=== PATIENT | female | born 1965 | race Caucasian/White ===

== ENCOUNTER 2016-10-31 10:26 | Emergency (ER) ==
[2016-10-31 10:26] VITALS: BMI 25.7
[2016-10-31 10:31] VITALS: BP 125/85; TEMP 98.1
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
--- NOTE | 2016-10-31 11:54 | DI ---
EXAM: Right tibia and fibula AP and lateral views. HISTORY: Leg pain FINDINGS: Bone and joint structures appear normal. There is no fracture or bony destruction. Gini nts are within normal limits. Soft tissues unremarkable. IMPRESSION: Within normal limits.
--- NOTE | 2016-10-31 12:03 | CT ---
EXAM: CT LUMBAR SPINE HISTORY: Back pain TECHNIQUE: CT lumbar spine without contrast. 3-mm axial sections. Coronal and sagittal reformatio ns. COMPARISON: 06/14/2016 FINDINGS: No fracture or significant loss of vertebral body height. No spondylolisthesis is identified. Ther e is mild curvature of the spine convex to the left centered at the mid lumbar level suggesting scol iosis. Early facet arthropathy of the [id number] lumbar spine and lumbosacral junction. Degenera tive disc disease is noted. Mild broad-based disc bulging, ligamentum flavum hypertrophy and facet arthropathy at L4/L5 leads to mild central canal stenosis. There is posterior disc bulging and L5/S 1 with no significant central canal stenosis or neural foraminal narrowing. Sacroiliac joints are w ithin normal limits. No paraspinal fluid collection. Incidental findings include atrophy of the right kidney and malrotation of the left kidney. There i s atherosclerotic disease and sigmoid diverticulosis. IMPRESSION: 1. Mild degenerative disc disease of the lower lumbar spine and lumbosacral junction similar to carmel t previously seen. 2. Mild scoliosis. 3. Incidental findings as described in the last paragraph of report.
--- NOTE | 2016-10-31 12:18 | CT ---
EXAM: CT of the cervical spine without contrast History: Neck pain. Technique: Multiplanar CT images through the cervical spine were obtained without the administratio n of IV contrast Findings: The visualized lung apices are free of consolidation. The visualized airway remains gates nt. No acute fracture or subluxation. No prevertebral soft tissue swelling. Predental space is not wid ened. Mild to moderate disc space narrowing at C4-5, C5-6 and C6-7 with endplate sclerosis and smal l osteophytes. C2-3: No significant disc bulge, central canal stenosis or bony neural foraminal narrowing. C3-4: No significant disc bulge, central canal stenosis or bony neural foraminal narrowing. C4-5: Small posterior disc osteophyte complex with mild central canal stenosis. Mild bilateral bon y neural foraminal narrowing secondary to uncovertebral and facet hypertrophy. C5-6: Small posterior disc osteophyte complex with mild bony central canal stenosis. Mild to moder ate bilateral bony neural foraminal narrowing secondary to uncovertebral and facet hypertrophy. C6-7: Small posterior disc osteophyte complex with no significant bony central canal stenosis. Mil d right and mild to moderate left bony neural foraminal narrowing secondary to uncovertebral and fac et hypertrophy. Impression: No acute osseous abnormality of the cervical spine. Level by level analysis as detaile d above. If symptoms persist, consider further evaluation with cervical spine MRI.
== END 2016-10-31 12:34 | disposition home or self-care (01) ==
LOC: ED 10:26
DX: M54.5 Low back pain (principal); M79.604 Pain in right leg; V19.9XXA Pedal cyclist (driver) (passenger) injured in unspecified traffic accident, initial encounter
CPT/HCPCS: 99283

== ENCOUNTER 2017-01-04 16:45 | Outpatient (CLI) ==
[2017-01-04 17:25] LABS: FLU INTERNAL QC INTERNAL QC VALID; RAPID FLU A NEGATIVE (NEGATIVE); RAPID FLU B NEGATIVE (NEGATIVE)
== END 2017-01-04 16:46 | disposition home or self-care (01) ==
LOC: LAB 16:45
PROVIDERS: ATTEND Nurse Practitioner Family
DX: R05 Cough (principal); J02.9 Acute pharyngitis, unspecified
CPT/HCPCS: 87804; 87880

== ENCOUNTER 2017-01-06 16:54 | Emergency (ER) ==
[2017-01-06 17:01] VITALS: BP 134/92; TEMP 99.1; BMI 26.7
--- NOTE | 2017-01-06 17:12 | ED.PDOC ---
General ED Provider: Dr. RUBY LARA-ER Chief Complaint: Sore Throat Stated Complaint: mayito got strep throat--that antibiotic makes me sick Time Seen by Physician: 17:11 Mode of Arrival: Walk-In Information Source: Patient Exam Limitations: No limitations Primary Care Provider: [facility] Nursing and Triage Documentation Reviewed and Agree: Yes EENT Complaint Exam - Throat Complaint/Exam Onset/Duration: 2-3 days Symptoms Are: Still present Timimg: Intermittent Initial Severity: Mild Current Severity: Mild Aggravating: Reports: Eating Alleviating: Reports: Antipyretics Associated Signs and Symptoms: Reports: Fever, Nasal congestion. Denies: Dysphagia, Drooling, Foreign body sensation, Chills, Cough, Wheezing, Hoarseness , Sinus discomfort, Difficulty breathing, Lethargy, Irritability, Decreased activity, Vomiting, Diarrhea, Decreased hearing, Ear drainage Related History: Reports: Similar Episode Uvula Midline: Yes Andra-tonsillar Fluctuence: No Exanthem: Present: Pharynx Stridor Present: No Sinus Tenderness Present: No Tonsillar Hypertrophy Present: No Tonsillar Exudate Present: No Andra-tonsillar Swelling Present: No Adenopathy Present: No Splenomegaly Present: No Differential Diagnoses: Pharyngitis Review of Systems - Review Of Systems Constitutional: Reports: Fever Eyes: Reports: No symptoms Ears, Nose, Mouth, Throat: Reports: Nose discharge, Throat pain, Throat swelling Respiratory: Reports: No symptoms Cardiac: Reports: No symptoms GI: Reports: No symptoms : Reports: No symptoms Musculoskeletal: Reports: No symptoms Skin: Reports: No symptoms Neurological: Reports: No symptoms Endocrine: Reports: No symptoms Hematologic/Lymphatic: Reports: No symptoms All Other Systems: Reviewed and Negative Past Medical History - Past Medical History Previously Healthy: Yes Endocrine: Reports: None Cardiovascular: Reports: Hypertension Respiratory: Reports: None Hematological: Reports: None Gastrointestinal: Reports: GERD Genitourinary: Reports: None Neuro/Psych: Reports: Depression Musculoskeletal: Reports: Joint Pain Cancer: Reports: None Last Menstrual Period: no longer has them Other Pertinent Past Medical History: Osteoporosis - Surgical History General Surgical History: Reports: Tubal ligation, Orthopedic ( CARPAL TUNNEL) - Family History Family History: Reports: Unknown - Social History Smoking Status: Former smoker Hx Substance Use: No Alcohol Screening: None Physical Exam - Physical Exam Appearance: Well-appearing, No pain distress, Well-nourished Pain Distress: Mild Eyes: HECTOR, EOMI, Conjunctiva clear ENT: Ears normal, Nose normal, Erythema Neck: Supple Respiratory: Airway patent, Breath sounds clear, Breath sounds equal, Respirations nonlabored Cardiovascular: RRR, Pulses normal, No rub, No murmur GI/: Soft Musculoskeletal: Normal strength, ROM intact, No edema, No calf tenderness Skin: Warm, Dry, Normal color Neurological: Sensation intact, Motor intact, Reflexes intact, Cranial nerves intact, Alert, Oriented Psychiatric: Affect appropriate, Mood appropriate Critical Care Note - Critical Care Note Total Time (mins): 0 Course - Course Vital Signs: Temp Pulse Resp BP Pulse Ox 01/06/17 16:55 99.1 F 92 H 16 134/92 H 98 Departure - Departure Time of Disposition: 17:12 Disposition: HOME SELF-CARE Discharge Problem: Streptococcal sore throat Instructions: Strep Throat (ED) Condition: Good Pt referred to PMD for follow-up: Yes Additional Instructions: pce 500mg bid x 7 days#14---recheck in 48hrs if not better Allergies/Adverse Reactions: Allergies wheat Allergy (Mild, Unverified 01/06/17 17:01) n/v Penicillins Adverse Reaction (Unverified 01/06/17 17:01) Opheliaaut Adverse Reaction (Uncoded 01/06/17 17:01) Home Medications: Ambulatory Orders Acetaminophen [Tylenol] 500 mg PO Q6H PRN #30 tablet 06/23/16 Hydrocodone/Acetaminophen [[place] 5-325 Tablet] 1 each PO BID 09/27/16 Diazepam 5 mg PO QID PRN #30 10/03/16 Disposition Discussed With: Patient
== END 2017-01-06 17:17 | disposition home or self-care (01) ==
LOC: ED 16:54
DX: J02.0 Streptococcal pharyngitis (principal)
CPT/HCPCS: 99282

== ENCOUNTER 2017-01-12 10:39 | Outpatient (CLI) ==
[2017-01-12 10:55] LABS: BASOPHILS % (AUTO) 0.5 % (0.0-3.0); EOSINOPHILS # (AUTO) 0.2 K/ul (0.0-0.7); EOSINOPHILS % (AUTO) 1.9 % (0.0-7.0); HEMATOCRIT 35.2 % (37.0-47.0); HEMOGLOBIN 11.4 g/dl (12.0-16.0); IMMATURE GRANULOCYTE % (AUTO) 0.2 % (0.0-5.0); LYMPHOCYTES # (AUTO) 1.8 K/uL (0.60-3.4); LYMPHOCYTES % (AUTO) 20.4 (10.0-50.0); MEAN CORPUSCULAR HGB CONC 32.4 (31.8-35.4); MEAN CORPUSCULAR VOLUME 92.6 fl (81.0-99.0); MONOCYTES # (AUTO) 0.4 K/uL (0.4-2.0); MONOCYTES % (AUTO) 4.9 (0-10); NEUTROPHILS # (AUTO) 6.2 K/ul (2.0-6.9); NEUTROPHILS % (AUTO) 72.1; PLATELET COUNT 362 10^3/uL (140-440); WHITE BLOOD COUNT 8.56 K/ul (4.6-10.2)
[2017-01-12 11:34] LABS: ALBUMIN 3.6 g/dL (3.4-5.0); ALBUMIN/GLOBULIN RATIO 0.82; BILIRUBIN,TOTAL 0.28 mg/dL (0.00-1.20); BUN/CREATININE RATIO 14.87; CREATININE 1.21 mg/dL (0.60-1.30)
== END 2017-01-12 10:40 | disposition home or self-care (01) ==
LOC: LAB 10:39
PROVIDERS: ATTEND Nurse Practitioner Family
DX: I10 Essential (primary) hypertension (principal); N26.1 Atrophy of kidney (terminal)
CPT/HCPCS: 36415; 80053; 80061; 85025

== ENCOUNTER 2017-01-12 11:04 | Emergency (ER) ==
[2017-01-12 11:12] VITALS: BP 131/97; TEMP 96.9; BMI 26.8
--- NOTE | 2017-01-12 11:33 | ED.PDOC ---
General ED Provider: Dr. CT MACK Chief Complaint: Sore Throat Stated Complaint: sore thorat Time Seen by Physician: 11:00 Mode of Arrival: Walk-In Information Source: Patient Exam Limitations: No limitations Nursing and Triage Documentation Reviewed and Agree: Yes EENT Complaint Exam - Throat Complaint/Exam Symptoms Are: Still present Timimg: Intermittent Initial Severity: Mild Current Severity: Mild Aggravating: Reports: None Alleviating: Reports: None Associated Signs and Symptoms: Reports: Cough, Nasal congestion. Denies: Fever , Dysphagia, Drooling, Foreign body sensation, Chills, Wheezing, Hoarseness, Sinus discomfort, Difficulty breathing, Lethargy, Irritability, Decreased activity, Vomiting, Diarrhea, Decreased hearing, Ear drainage Uvula Midline: Yes Andra-tonsillar Fluctuence: No Scarlatinaform Rash Present: No Stridor Present: No Sinus Tenderness Present: No Tonsillar Hypertrophy Present: No Tonsillar Exudate Present: No Andra-tonsillar Swelling Present: No Adenopathy Present: No Splenomegaly Present: No Review of Systems - Review Of Systems Constitutional: Reports: No symptoms Eyes: Reports: No symptoms Ears, Nose, Mouth, Throat: Reports: Throat pain Respiratory: Reports: No symptoms Cardiac: Reports: No symptoms GI: Reports: No symptoms : Reports: No symptoms Musculoskeletal: Reports: No symptoms Skin: Reports: No symptoms Neurological: Reports: No symptoms Endocrine: Reports: No symptoms Hematologic/Lymphatic: Reports: No symptoms All Other Systems: Reviewed and Negative Past Medical History - Past Medical History Previously Healthy: Yes Endocrine: Reports: None Cardiovascular: Reports: Hypertension Respiratory: Reports: None Hematological: Reports: None Gastrointestinal: Reports: GERD Genitourinary: Reports: None Neuro/Psych: Reports: Depression Musculoskeletal: Reports: Joint Pain Cancer: Reports: None Last Menstrual Period: N/A Other Pertinent Past Medical History: Osteoporosis - Surgical History General Surgical History: Reports: Tubal ligation, Orthopedic ( CARPAL TUNNEL) - Family History Family History: Reports: Unknown - Social History Smoking Status: Former smoker Hx Substance Use: No Alcohol Screening: None - Immunizations Tetanus Shot up to Date: Yes Physical Exam - Physical Exam Appearance: Well-appearing, No pain distress, Well-nourished Eyes: HECTOR, EOMI, Conjunctiva clear ENT: Ears normal, Nose normal, Oropharynx normal Respiratory: Airway patent, Breath sounds clear, Breath sounds equal, Respirations nonlabored Cardiovascular: RRR, Pulses normal, No rub, No murmur GI/: Soft, Nontender, No masses, Bowel sounds normal, No Organomegaly Musculoskeletal: Normal strength, ROM intact, No edema, No calf tenderness Skin: Warm, Dry, Normal color Neurological: Sensation intact, Motor intact, Reflexes intact, Cranial nerves intact, Alert, Oriented Psychiatric: Affect appropriate, Mood appropriate Critical Care Note - Critical Care Note Total Time (mins): 0 Course - Course Orders, Labs, Meds: Orders Category Date Time Status STREP SCREEN Stat LAB 01/12/17 11:30 Uncollected Vital Signs: Temp Pulse Resp BP Pulse Ox 01/12/17 11:05 96.9 F L 82 18 131/97 H 98 Departure - Departure Time of Disposition: 11:32 Disposition: HOME SELF-CARE Discharge Problem: Sore throat symptom Instructions: Strep Throat (ED) Condition: Good Pt referred to PMD for follow-up: No Additional Instructions: Please call your Family Physician as soon as possible to schedule a follow-up appointment. Allergies/Adverse Reactions: Allergies wheat Allergy (Mild, Verified 01/12/17 11:12) n/v Penicillins Adverse Reaction (Verified 01/12/17 11:12) Sauerkraut Adverse Reaction (Uncoded 01/12/17 11:12) Home Medications: Ambulatory Orders Acetaminophen [Tylenol] 500 mg PO Q6H PRN #30 tablet 06/23/16 Hydrocodone/Acetaminophen [[employer] 5-325 Tablet] 1 each PO BID 09/27/16 Diazepam 5 mg PO QID PRN #30 10/03/16
== END 2017-01-12 11:54 | disposition home or self-care (01) ==
LOC: ED 11:04
DX: J02.9 Acute pharyngitis, unspecified (principal)
CPT/HCPCS: 87651; 87880; 99282

== ENCOUNTER 2017-01-16 17:39 | Emergency (ER) ==
[2017-01-16 17:43] VITALS: BP 125/85; TEMP 99.1; BMI 27.1
--- NOTE | 2017-01-16 18:00 | ED.PDOC ---
General ED Provider: Dr. CRUZ GIL JR Chief Complaint: Sore Throat Stated Complaint: has had a sore throat since sometime last week, has been to the clinic and this er last week. states she wasnt put on anything. states pain got worse today and has lost her voice [ End ]99.1 90 20 96% 125/85 10 note erythromycin 2 weeks ago Time Seen by Physician: 18:00 Mode of Arrival: Walk-In Information Source: Patient Exam Limitations: No limitations [facility] Nursing and Triage Documentation Reviewed and Agree: No Review of Systems - Review Of Systems Constitutional: Reports: Fever Ears, Nose, Mouth, Throat: Reports: Nose pain, Throat pain (hoarse) Respiratory: Reports: Cough (productive cough with brown sputum ) Cardiac: Reports: No symptoms GI: Reports: No symptoms : Reports: No symptoms Musculoskeletal: Reports: No symptoms Skin: Reports: No symptoms Neurological: Reports: No symptoms Endocrine: Reports: No symptoms Hematologic/Lymphatic: Reports: Swollen glands All Other Systems: Other Past Medical History - Past Medical History Previously Healthy: Yes Endocrine: Reports: None Cardiovascular: Reports: Hypertension Respiratory: Reports: None Hematological: Reports: None Gastrointestinal: Reports: GERD Genitourinary: Reports: None Neuro/Psych: Reports: Anxiety, Depression Musculoskeletal: Reports: Arthritis, Joint Pain Cancer: Reports: None Last Menstrual Period: none Other Pertinent Past Medical History: Osteoporosis - Surgical History General Surgical History: Reports: Tubal ligation, Orthopedic ( CARPAL TUNNEL) - Family History Family History: Reports: Unknown - Social History Smoking Status: Former smoker Hx Substance Use: No Alcohol Screening: None Physical Exam - Physical Exam Appearance: Ill-appearing Pain Distress: Moderate Eyes: HECTOR, EOMI, Conjunctiva clear ENT: Oropharynx normal Neck: Supple (tender minimal LAD) Respiratory: Airway patent, Breath sounds clear, Breath sounds equal, Respirations nonlabored Cardiovascular: RRR, Pulses normal, No rub, No murmur GI/: Soft, Nontender, No masses, Bowel sounds normal, No Organomegaly Musculoskeletal: Normal strength, ROM intact, No edema, No calf tenderness Skin: Warm, Dry, Normal color Neurological: Sensation intact, Motor intact, Reflexes intact, Cranial nerves intact, Alert, Oriented Psychiatric: Anxious Re-Evaluation - Re-Evaluation Time of Re-Evaluation: 18:23 (disc meds- nausea and stomach pain withmotrin) Status: Unchanged Critical Care Note - Critical Care Note Total Time (mins): 0 Course - Course Vital Signs: Temp Pulse Resp BP Pulse Ox 01/16/17 17:40 99.1 F 90 20 125/85 96 Departure - Departure Time of Disposition: 18:17 Disposition: HOME SELF-CARE Discharge Problem: Streptococcal sore throat Instructions: Strep Throat (ED) Condition: Fair Pt referred to PMD for follow-up: Yes Additional Instructions: for infection begin clindamycin for ten days chloraseptic for throat pain may add benadryl to home medication to improve pain control Prescriptions: Clindamycin HCl 300 mg PO QID #40 capsule Diphenhydramine HCl [Benadryl] 25 mg PO QID #30 capsule Allergies/Adverse Reactions: Allergies wheat Allergy (Mild, Verified 01/16/17 17:43) n/v Penicillins Adverse Reaction (Verified 01/16/17 17:43) Opheliaaut Adverse Reaction (Uncoded 01/12/17 11:12) Home Medications: Ambulatory Orders Acetaminophen [Tylenol] 500 mg PO Q6H PRN #30 tablet 06/23/16 Hydrocodone/Acetaminophen [[place] 5-325 Tablet] 1 each PO BID 09/27/16 Diazepam 5 mg PO QID PRN #30 10/03/16 Clindamycin HCl 300 mg PO QID #40 capsule 01/16/17 Diphenhydramine HCl [Benadryl] 25 mg PO QID #30 capsule 01/16/17
== END 2017-01-16 18:25 | disposition home or self-care (01) ==
LOC: ED 17:39
DX: J02.0 Streptococcal pharyngitis (principal)
CPT/HCPCS: 99282

== ENCOUNTER 2017-02-14 10:50 | Emergency (ER) ==
[2017-02-14 10:58] VITALS: BP 123/84; TEMP 96.8; BMI 26.4
--- NOTE | 2017-02-14 11:07 | ED.PDOC ---
General ED Provider: Dr. CRUZ GIL JR Chief Complaint: Sore Throat Stated Complaint: has sore throat past week--states her tonsils hurt--has been having chronic problem with sore throat--saw dr sebastian for eval--no fever-- also has problems with bladder incontinence[End]1 WEEK 96.8 71 20 98% 123/84 Time Seen by Physician: 11:40 Mode of Arrival: Walk-In Information Source: Patient Exam Limitations: No limitations [facility] Documentation Reviewed and Agree: No Review of Systems - Review Of Systems Constitutional: Reports: Malaise, Weakness Eyes: Reports: No symptoms Ears, Nose, Mouth, Throat: Reports: Throat pain Respiratory: Reports: No symptoms Cardiac: Reports: No symptoms GI: Reports: No symptoms : Reports: Frequency, Urgency Musculoskeletal: Reports: No symptoms Skin: Reports: No symptoms Neurological: Reports: No symptoms Endocrine: Reports: Increased urine Hematologic/Lymphatic: Reports: No symptoms All Other Systems: Other Past Medical History - Past Medical History Previously Healthy: Yes Endocrine: Reports: None Cardiovascular: Reports: Hypertension Respiratory: Reports: None Hematological: Reports: None Gastrointestinal: Reports: GERD Genitourinary: Reports: None Neuro/Psych: Reports: Anxiety, Depression Musculoskeletal: Reports: Arthritis, Joint Pain Cancer: Reports: None Last Menstrual Period: menopause Other Pertinent Past Medical History: Osteoporosis - Surgical History General Surgical History: Reports: Tubal ligation, Orthopedic ( CARPAL TUNNEL) - Family History Family History: Reports: Unknown - Social History Smoking Status: Former smoker Hx Substance Use: No Alcohol Screening: None Physical Exam - Physical Exam Appearance: Well-appearing, No pain distress, Well-nourished Pain Distress: Mild Eyes: HECTOR, EOMI, Conjunctiva clear ENT: Ears normal, Nose normal, Oropharynx normal Neck: Supple Respiratory: Airway patent, Breath sounds clear, Breath sounds equal, Respirations nonlabored Cardiovascular: RRR, Pulses normal, No rub, No murmur GI/: Soft, Nontender, No masses, Bowel sounds normal, No Organomegaly Musculoskeletal: Normal strength, ROM intact, No edema, No calf tenderness Skin: Warm, Dry, Normal color Neurological: Sensation intact, Motor intact, Reflexes intact, Cranial nerves intact, Alert, Oriented Psychiatric: Anxious, Depressed Critical Care Note - Critical Care Note Total Time (mins): 0 Course - Course Vital Signs: Temp Pulse Resp BP Pulse Ox 02/14/17 10:51 96.8 F L 71 20 123/84 98 Departure - Departure Time of Disposition: 11:58 Disposition: HOME SELF-CARE Discharge Problem: Sore throat symptom Instructions: Pharyngitis (ED) Condition: Good Pt referred to PMD for follow-up: Yes Additional Instructions: follow up with Dr Finn as scheduled follow up with Dr Sebastian as scheduled if you are not satisfied your physician may refer to other ear nose and throat doctors Naprosyn for pain as prescribed Doxycycline for inflammation 100mg twice a day for one week return if urinating less than three times a day or if fever over 101.0 Prescriptions: Naproxen [Naprosyn] 500 mg PO Q12HR PRN #30 tablet PRN Reason: PAIN Doxycycline Monohydrate [Monodox] 100 mg PO BID #20 capsule Allergies/Adverse Reactions: Allergies wheat Allergy (Mild, Verified 02/14/17 11:00) n/v Penicillins Adverse Reaction (Verified 02/14/17 11:00) Nancy Adverse Reaction (Uncoded 01/12/17 11:12) Home Medications: Ambulatory Orders Acetaminophen [Tylenol] 500 mg PO Q6H PRN #30 tablet 06/23/16 Hydrocodone/Acetaminophen [[place] 5-325 Tablet] 1 each PO BID 09/27/16 Diazepam 5 mg PO QID PRN #30 10/03/16 Diphenhydramine HCl [Benadryl] 25 mg PO QID #30 capsule 01/16/17 Doxycycline Monohydrate [Monodox] 100 mg PO BID #20 capsule 02/14/17 Naproxen [Naprosyn] 500 mg PO BID #20 02/14/17 Naproxen [Naprosyn] 500 mg PO Q12HR PRN #30 tablet 02/14/17
== END 2017-02-14 12:23 | disposition home or self-care (01) ==
LOC: ED 10:50
DX: J02.9 Acute pharyngitis, unspecified (principal)
CPT/HCPCS: 99282

== ENCOUNTER 2017-02-17 18:05 | Emergency (ER) ==
[2017-02-17 18:11] VITALS: BP 119/88; TEMP 98.1; BMI 26.1
--- NOTE | 2017-02-17 18:14 | ED.PDOC ---
General ED Provider: Dr. JULIO PETIT Chief Complaint: Sore Throat Stated Complaint: patient is a 51 year old female who was seen 3 days ago given antibiotics for sore thorat who returns to the ER with complains of continued sore throat and epigastric abdominal pain. Time Seen by Physician: 18:14 Mode of Arrival: Walk-In Information Source: Patient Exam Limitations: No limitations Primary Care Provider[facility] and Triage Documentation Reviewed and Agree: Yes Review of Systems - Review Of Systems Constitutional: Reports: No symptoms Eyes: Reports: No symptoms Ears, Nose, Mouth, Throat: Reports: Throat pain Respiratory: Reports: No symptoms Cardiac: Reports: No symptoms GI: Reports: Abdominal pain : Reports: No symptoms Musculoskeletal: Reports: No symptoms Skin: Reports: No symptoms Neurological: Reports: No symptoms Endocrine: Reports: No symptoms Hematologic/Lymphatic: Reports: No symptoms All Other Systems: Reviewed and Negative Past Medical History - Past Medical History Previously Healthy: Yes Endocrine: Reports: None Cardiovascular: Reports: Hypertension Respiratory: Reports: None Hematological: Reports: None Gastrointestinal: Reports: GERD Genitourinary: Reports: None Neuro/Psych: Reports: Anxiety, Depression Musculoskeletal: Reports: Arthritis, Joint Pain Cancer: Reports: None Last Menstrual Period: n/a Other Pertinent Past Medical History: Osteoporosis - Surgical History General Surgical History: Reports: Tubal ligation, Orthopedic ( CARPAL TUNNEL) - Family History Family History: Reports: Unknown - Social History Smoking Status: Former smoker Hx Substance Use: No Alcohol Screening: None Physical Exam - Physical Exam Appearance: Ill-appearing Ill-appearing: Moderate Pain Distress: Mild Eyes: HECTOR, EOMI, Conjunctiva clear ENT: Ears normal, Nose normal, Oropharynx normal Neck: Supple Respiratory: Airway patent, Breath sounds clear, Breath sounds equal, Respirations nonlabored GI/: Soft, Tender (epigastric area) Musculoskeletal: Normal strength, ROM intact, No edema, No calf tenderness Skin: Warm, Dry, Normal color Neurological: Sensation intact, Motor intact, Reflexes intact, Cranial nerves intact, Alert, Oriented Psychiatric: Affect appropriate, Mood appropriate, Anxious Interpretation - Radiology Interpretation Radiology Interpretation By: Radiologist Radiology Results: No acute changes Exam Interpreted: CT Scan Critical Care Note - Critical Care Note Total Time (mins): 0 Course - Course Hematology/Chemistry: 02/17/17 18:55 02/17/17 18:55 Orders, Labs, Meds: Orders Category Date Time Status STREP SCREEN Stat LAB 02/17/17 18:13 Uncollected Vital Signs: Temp Pulse Resp BP Pulse Ox 02/17/17 18:06 98.1 F 86 14 119/88 98 Departure - Departure Time of Disposition: 20:05 Disposition: HOME SELF-CARE Discharge Problem: Viral syndrome Pharyngitis Qualifiers: Pharyngitis/tonsillitis etiology: unspecified etiology Qualifier Code: (J02.9) Acute pharyngitis, unspecified Instructions: Viral Syndrome (ED) Condition: Good Pt referred to PMD for follow-up: Yes Additional Instructions: continue home Medications Follow up with PCP in 3 days Allergies/Adverse Reactions: Allergies wheat Allergy (Mild, Verified 02/17/17 18:10) n/v Penicillins Adverse Reaction (Verified 02/17/17 18:10) Sauerkraut Adverse Reaction (Uncoded 02/17/17 18:10) Home Medications: Ambulatory Orders Acetaminophen [Tylenol] 500 mg PO Q6H PRN #30 tablet 06/23/16 Hydrocodone/Acetaminophen [[place] 5-325 Tablet] 1 each PO BID 09/27/16 Diazepam 5 mg PO QID PRN #30 10/03/16 Diphenhydramine HCl [Benadryl] 25 mg PO QID #30 capsule 01/16/17 Doxycycline Monohydrate [Monodox] 100 mg PO BID #20 capsule 02/14/17 Naproxen [Naprosyn] 500 mg PO BID #20 02/14/17 Naproxen [Naprosyn] 500 mg PO Q12HR PRN #30 tablet 02/14/17
[2017-02-17 19:05] LABS: BASOPHILS # (AUTO) 0.1 K/uL (0-0.2); EOSINOPHILS # (AUTO) 0.1 K/ul (0.0-0.7); EOSINOPHILS % (AUTO) 2.5 % (0.0-7.0); HEMATOCRIT 29.2 % (37.0-47.0); HEMOGLOBIN 9.1 g/dl (12.0-16.0); IMMATURE GRANULOCYTE % (AUTO) 0.2 % (0.0-5.0); LYMPHOCYTES # (AUTO) 1.9 K/uL (0.60-3.4); LYMPHOCYTES % (AUTO) 36.3 (10.0-50.0); MEAN CORPUSCULAR HEMOGLOBIN 28.2 pg (27.0-31.0); MEAN CORPUSCULAR HGB CONC 31.2 (31.8-35.4); MEAN CORPUSCULAR VOLUME 90.4 fl (81.0-99.0); MONOCYTES # (AUTO) 0.4 K/uL (0.4-2.0); NEUTROPHILS # (AUTO) 2.7 K/ul (2.0-6.9); PLATELET COUNT 252 10^3/uL (140-440); RED BLOOD COUNT 3.23 10^6/ul (4.20-5.40); WHITE BLOOD COUNT 5.15 K/ul (4.6-10.2)
[2017-02-17 19:47] LABS: ALBUMIN 3.5 g/dL (3.4-5.0); ALBUMIN/GLOBULIN RATIO 1.09; ANION GAP 16.4; BILIRUBIN,TOTAL 0.34 mg/dL (0.00-1.20); BUN/CREATININE RATIO 7.54; CALCIUM 9.7 mg/dL (8.2-10.2); CREATININE 1.06 mg/dL (0.60-1.30); POTASSIUM 3.4 mmol/L (3.5-5.10); TOTAL PROTEIN 6.7 g/dL (6.4-8.2)
[2017-02-17 19:48] LABS: AMYLASE 68 U/L (25-115); LIPASE 12 U/L (8-78)
--- NOTE | 2017-02-17 20:00 | CT ---
EXAM: CT abdomen and pelvis without contrast. HISTORY: Abdominal pain. PROCEDURE: Contiguous axial CT images of the abdomen and pelvis without contrast with coronal and s agittal reformats. FINDINGS: The liver, gallbladder, pancreas, spleen and adrenal glands are normal in appearance. Ther e is atrophy of the right kidney. There is bilateral renal cortical scarring. There is a nonobstruct mayito calcification in the lower pole of the left kidney. The abdominal aorta is within normal limits in diameter. The appendix is normal in appearance. There is diverticulosis of the colon with no valerie dence of diverticulitis. No free fluid or free air in the abdomen or pelvis. The bladder is adequate ly filled with no abnormality identified. The uterus is unremarkable. There is severe degenerative remodeling of the right hip. There are degenerative changes in the spine. Impression: Diverticulosis of the colon without diverticulitis. Atrophy of the right kidney. Bilateral renal cortical scarring. Nonobstructive left nephrolithiasis.
== END 2017-02-17 20:13 | disposition home or self-care (01) ==
LOC: ED 18:05
DX: B34.9 Viral infection, unspecified (principal); J02.9 Acute pharyngitis, unspecified
CPT/HCPCS: 36415; 74176; 80053; 82150; 83605; 83690; 84145; 84484; 85025; 87040; 87651; 87880; 99283

== ENCOUNTER 2017-02-28 12:04 | Outpatient (CLI) ==
[2017-02-28 13:46] LABS: IMMATURE RETIC FRACTION 12.8; RETICULOCYTE % 1.48 %
[2017-02-28 14:47] LABS: FERRITIN 6.98 ng/mL (4.63-204.00)
[2017-02-28 16:04] LABS: FOLATE 31.7 ng/mL (3.1-20.5)
== END 2017-02-28 12:05 | disposition home or self-care (01) ==
LOC: LAB 12:04
PROVIDERS: ATTEND Emergency Medicine
DX: D50.8 Other iron deficiency anemias (principal)
CPT/HCPCS: 36415; 82607; 82728; 82746; 83540; 83550; 84466; 85018; 85045

== ENCOUNTER 2017-03-01 08:08 | Outpatient (CLI) ==
--- NOTE | 2017-03-01 09:17 | CT ---
EXAM: CT Abdomen without contrast. CT Pelvis without contrast. HISTORY: Five deficiency anemia. Hip pain. COMPARISON: Right hip radiograph 09/27/2016. CT 02/17/2017. TECHNIQUE: Multiple axial images of the abdomen and pelvis were obtained without intravenous contra st. Images were reformatted in the coronal plane. FINDINGS: Please note that evaluation of the abdominal and pelvic structures is limited due to lack of intravenous contrast. Left lower lobe calcified granuloma noted. There is complete loss of the right hip joint space with extensive subchondral cyst, subchondral scl erosis and marginal osteophyte formation. No acute osseous abnormality identified. The liver, gallbladder, pancreas, spleen, and adrenal glands demonstrate normal contour. Right judy l atrophy noted. There are areas of left renal cortical scarring along with a 0.2 cm nonobstructing left renal calculus. No hydronephrosis identified. Small hiatal hernia is present. The bowel is normal in course and caliber without evidence for obst ruction or inflammatory process. The appendix is normal. Colonic diverticulosis noted. Moderate-s ized fat-containing umbilical hernia is present. Urinary bladder is unremarkable. Uterus demonstra sammie normal contour. No free fluid or free air identified. Mild atherosclerotic calcifications are present. IMPRESSION: 1. No acute abnormality within the abdomen or pelvis. 2. Left nephrolithiasis. Areas of left renal cortical scarring. Right renal atrophy. 3. Diverticulosis. 4. Fat-containing umbilical hernia. 5. Advanced right hip osteoarthritis.
== END 2017-03-01 08:09 | disposition home or self-care (01) ==
LOC: RAD 08:08
PROVIDERS: ATTEND Emergency Medicine
DX: D50.8 Other iron deficiency anemias (principal); R10.84 Generalized abdominal pain

== ENCOUNTER 2017-03-09 11:37 | Emergency (ER) ==
[2017-03-09 11:43] VITALS: BP 142/89; TEMP 98.4; BMI 25.5
--- NOTE | 2017-03-09 12:06 | ED.PDOC ---
General ED Provider: Dr. JOYCE RANDOLPH Chief Complaint: Bite Stated Complaint: Patients dog bite her ob the left forearm, dog is not upto date with immunization. Time Seen by Physician: 12:05 Mode of Arrival: Walk-In Information Source: Patient Primary Care Provider: [facility] Nursing and Triage Documentation Reviewed and Agree: Yes Trauma/Injury Complaint Exam - Bite Injury Complaint/Exam Symptoms Are: Still present Type of Bite: Reports: Pet animal Animal Immunized: Reports: No Initial Severity: Mild Current Severity: Mild Character: Reports: Puncture Aggravating: Reports: Exertion Alleviating: Reports: None Associated Signs and Symptoms: Reports: Numbness. Denies: Fever, Erythema, Drainage, Swelling, Lymphadenopathy, Tingling, Limited ROM Related History: Reports: Provoked Animal Available for Observation: Yes Animal Control Notified: No Infection/Sepsis Risk Factors: Present: None Bite Findings: Present: Erythema, Tenderness Wound Description: Present: Puncture wound Drainage: Present: None Differential Diagnoses: Cellulitis Review of Systems - Review Of Systems Constitutional: Reports: No symptoms Eyes: Reports: No symptoms Ears, Nose, Mouth, Throat: Reports: No symptoms Respiratory: Reports: No symptoms Cardiac: Reports: No symptoms GI: Reports: No symptoms : Reports: No symptoms Musculoskeletal: Reports: No symptoms Skin: Reports: No symptoms Neurological: Reports: Anxiety Endocrine: Reports: No symptoms Hematologic/Lymphatic: Reports: No symptoms All Other Systems: Reviewed and Negative Past Medical History - Past Medical History Previously Healthy: Yes Endocrine: Reports: None Cardiovascular: Reports: Hypertension Respiratory: Reports: None Hematological: Reports: None Gastrointestinal: Reports: GERD Genitourinary: Reports: None Neuro/Psych: Reports: Anxiety, Depression Musculoskeletal: Reports: Arthritis, Joint Pain Cancer: Reports: None Last Menstrual Period: none Other Pertinent Past Medical History: Osteoporosis - Surgical History General Surgical History: Reports: Tubal ligation, Orthopedic ( CARPAL TUNNEL) - Family History Family History: Reports: Unknown - Social History Smoking Status: Former smoker Hx Substance Use: No Alcohol Screening: None Physical Exam - Physical Exam Appearance: Well-appearing, No pain distress, Well-nourished Eyes: HECTOR, EOMI, Conjunctiva clear ENT: Ears normal, Nose normal, Oropharynx normal Respiratory: Airway patent, Breath sounds clear, Breath sounds equal, Respirations nonlabored Cardiovascular: RRR, Pulses normal, No rub, No murmur GI/: Soft, Nontender, No masses, Bowel sounds normal, No Organomegaly Musculoskeletal: Normal strength, ROM intact, No edema, No calf tenderness Skin: Warm (left forearm, has 2 puncture wounds, some tenderness), Dry, Normal color Neurological: Sensation intact, Motor intact, Reflexes intact, Cranial nerves intact, Alert, Oriented Psychiatric: Affect appropriate, Mood appropriate Critical Care Note - Critical Care Note Total Time (mins): 0 Course - Course Vital Signs: Temp Pulse Resp BP Pulse Ox 03/09/17 11:37 98.4 F 83 20 142/89 H 98 Departure - Departure Time of Disposition: 12:09 Disposition: HOME SELF-CARE Discharge Problem: Dog bite of extremity Instructions: Animal Bite (ED) Condition: Stable Pt referred to PMD for follow-up: Yes Additional Instructions: PLEASE OBSERVE THE DOG FOR ANY ABNORMAL BEHAVIOR, IF SO INFORM THE ANIMAL CONTROL. Tylenol prn Keep arm elevated. f/u in [facility] in 4-5 days Prescriptions: Cephalexin [Keflex] 500 mg PO Q12HR #20 capsule Allergies/Adverse Reactions: Allergies doxycycline Allergy (Mild, Verified 03/09/17 11:44) sick to stomach wheat Allergy (Mild, Verified 03/09/17 11:44) n/v clindamycin Adverse Reaction (Verified 03/09/17 11:44) naproxen Adverse Reaction (Verified 03/09/17 11:44) Penicillins Adverse Reaction (Verified 03/09/17 11:44) Sauerkraut Adverse Reaction (Uncoded 02/17/17 18:10) Home Medications: Ambulatory Orders Acetaminophen [Tylenol] 500 mg PO Q6H PRN #30 tablet 06/23/16 Hydrocodone/Acetaminophen [[place] 5-325 Tablet] 1 each PO BID 09/27/16 Cephalexin [Keflex] 500 mg PO Q12HR #20 capsule 03/09/17 Disposition Discussed With: Patient
== END 2017-03-09 12:52 | disposition home or self-care (01) ==
LOC: ED 11:37
DX: S51.852A Open bite of left forearm, initial encounter (principal); W54.0XXA Bitten by dog, initial encounter
CPT/HCPCS: 99282

== ENCOUNTER 2017-03-27 16:53 | Emergency (ER) ==
[2017-03-27 17:00] VITALS: BP 118/82; TEMP 98.5; BMI 25.7
--- NOTE | 2017-03-27 17:43 | ED.PDOC ---
General ED Provider: Dr. CRUZ GIL JR Chief Complaint: Wrist Pain/Injury Stated Complaint: Pain left wrist. No acute injury. Takes [place] BID. doesnt help. Hx arthritis, carpal tunnel. States makes fingers "feel like needles are poking me.". [ End ] Time Seen by Physician: 17:43 Mode of Arrival: Walk-In Information Source: Patient Exam Limitations: No limitations Primary [facility] and Triage Documentation Reviewed and Agree: No Review of Systems - Review Of Systems Constitutional: Reports: No symptoms Eyes: Reports: No symptoms Ears, Nose, Mouth, Throat: Reports: No symptoms Respiratory: Reports: No symptoms Cardiac: Reports: No symptoms GI: Reports: No symptoms : Reports: No symptoms Musculoskeletal: Reports: Muscle pain (left extensor compartment tender without swelling or tightness) Skin: Reports: No symptoms Neurological: Reports: No symptoms Endocrine: Reports: No symptoms Hematologic/Lymphatic: Reports: No symptoms All Other Systems: Other Past Medical History - Past Medical History Previously Healthy: Yes Endocrine: Reports: None Cardiovascular: Reports: Hypertension Respiratory: Reports: None Hematological: Reports: None Gastrointestinal: Reports: GERD Genitourinary: Reports: None Neuro/Psych: Reports: Anxiety, Depression Musculoskeletal: Reports: Arthritis, Joint Pain Cancer: Reports: None Last Menstrual Period: 4 months Other Pertinent Past Medical History: Osteoporosis - Surgical History General Surgical History: Reports: Tubal ligation, Orthopedic ( CARPAL TUNNEL) - Family History Family History: Reports: Unknown - Social History Smoking Status: Former smoker Hx Substance Use: No Alcohol Screening: None Physical Exam - Physical Exam Appearance: Well-appearing, No pain distress, Well-nourished Pain Distress: Moderate Neck: Supple Respiratory: Airway patent Musculoskeletal: Normal strength, ROM intact, No edema, No calf tenderness ( tender left forearm atextensor origin) Skin: Warm, Dry, Normal color Neurological: Sensation intact Psychiatric: Affect appropriate, Mood appropriate Interpretation - Radiology Interpretation Radiology Interpretation By: ED Physician Radiology Results: Negative Exam Interpreted: Other Critical Care Note - Critical Care Note Total Time (mins): 0 Course - Course Orders, Labs, Meds: Orders Category Date Time Status Ketorolac Tromethamine [Toradol] MEDS 03/27/17 18:19 Stat 60 mg IM ONCE STA FOREARM, LEFT 2 VIEWS Stat RADS 03/27/17 17:42 Taken Medications Discontinued Medications Generic Name Dose Route Start Last Admin Trade Name Freq PRN Reason Stop Dose Admin Ketorolac Tromethamine 60 mg 03/27/17 18:19 Toradol IM 03/27/17 18:20 ONCE STA Vital Signs: Temp Pulse Resp BP Pulse Ox 03/27/17 16:54 98.5 F 78 20 118/82 97 Departure - Departure Time of Disposition: 18:23 Disposition: HOME SELF-CARE Discharge Problem: Left forearm pain Instructions: Muscle Strain (ED) Condition: Good Pt referred to PMD for follow-up: Yes Additional Instructions: use hand muscles three times a day squeeze towel or ball and do range of motion of elbow three times a day recheck PMD one week no evidence of infection follow up sooner if redness increased swellingor drainage or fever over 101.0 Prescriptions: Naproxen [Naprosyn] 500 mg PO Q12HR PRN #30 tablet PRN Reason: PAIN Allergies/Adverse Reactions: Allergies doxycycline Allergy (Mild, Verified 03/27/17 17:01) sick to stomach wheat Allergy (Mild, Verified 03/27/17 17:01) n/v clindamycin Adverse Reaction (Verified 03/27/17 17:01) naproxen Adverse Reaction (Verified 03/27/17 17:01) Penicillins Adverse Reaction (Verified 03/27/17 17:01) [place] Adverse Reaction (Uncoded 02/17/17 18:10) Home Medications: Ambulatory Orders Acetaminophen [Tylenol] 500 mg PO Q6H PRN #30 tablet 06/23/16 Hydrocodone/Acetaminophen [[place] 5-325 Tablet] 1 each PO BID 09/27/16 Naproxen [Naprosyn] 500 mg PO Q12HR PRN #30 tablet 03/27/17
[2017-03-27] MEDS ORDERED: TORADOL IM STA (18:19)
--- NOTE | 2017-03-28 07:36 | DI ---
EXAM: Left forearm two-view HISTORY: Acute pain, history dog bite left arm COMPARISON: None FINDINGS: The bones are normal. Alignment is normal. No focal soft tissue abnormality. IMPERSSION: Normal examination.
== END 2017-03-27 18:33 | disposition home or self-care (01) ==
LOC: ED 16:53
DX: M79.632 Pain in left forearm (principal)
CPT/HCPCS: 99283

== ENCOUNTER 2017-04-20 11:39 | Outpatient (CLI) ==
[2017-04-20 12:27] LABS: BASOPHILS # (AUTO) 0.1 K/uL (0-0.2); EOSINOPHILS # (AUTO) 0.2 K/ul (0.0-0.7); EOSINOPHILS % (AUTO) 2.5 % (0.0-7.0); HEMATOCRIT 37.3 % (37.0-47.0); HEMOGLOBIN 11.9 g/dl (12.0-16.0); IMMATURE GRANULOCYTE % (AUTO) 0.4 % (0.0-5.0); IMMATURE RETIC FRACTION 15.4; LYMPHOCYTES # (AUTO) 2.4 K/uL (0.60-3.4); LYMPHOCYTES % (AUTO) 33.9 (10.0-50.0); MEAN CORPUSCULAR HEMOGLOBIN 29.4 pg (27.0-31.0); MEAN CORPUSCULAR HGB CONC 31.9 (31.8-35.4); MEAN CORPUSCULAR VOLUME 92.1 fl (81.0-99.0); MONOCYTES # (AUTO) 0.5 K/uL (0.4-2.0); MONOCYTES % (AUTO) 6.8 (0-10); NEUTROPHILS % (AUTO) 55.4; PLATELET COUNT 317 10^3/uL (140-440); RED BLOOD COUNT 4.05 10^6/ul (4.20-5.40); RETICULOCYTE % 1.89 %; WHITE BLOOD COUNT 7.17 K/ul (4.6-10.2)
[2017-04-20 13:17] LABS: FERRITIN 17.37 ng/mL (4.63-204.00)
== END 2017-04-20 11:40 | disposition home or self-care (01) ==
LOC: LAB 11:39
PROVIDERS: ATTEND Emergency Medicine
DX: D64.9 Anemia, unspecified (principal)
CPT/HCPCS: 36415; 82607; 82728; 83540; 83550; 84466; 85025; 85045

== ENCOUNTER 2017-05-27 17:48 | Emergency (ER) ==
[2017-05-27 17:55] VITALS: BP 116/79; TEMP 99.5; BMI 25.6
--- NOTE | 2017-05-27 18:33 | ED.PDOC ---
General ED Provider: Dr. CRUZ GIL JR Chief Complaint: Bite Stated Complaint: was helping uncle move furniture indoors and was stung by wasp --has redness with sl swelling to left wrist no wheezing or distress noted--. [ End]99.5 92 20 98 116/79 10 Time Seen by Physician: 18:35 Mode of Arrival: Walk-In Information Source: Patient Exam Limitations: No limitations [facility] Documentation Reviewed and Agree: No Review of Systems - Review Of Systems Constitutional: Reports: No symptoms Eyes: Reports: No symptoms Ears, Nose, Mouth, Throat: Reports: No symptoms Respiratory: Reports: No symptoms Cardiac: Reports: No symptoms GI: Reports: No symptoms : Reports: No symptoms Musculoskeletal: Reports: No symptoms Skin: Reports: Lesions, Lumps (edema and tenderness left wrist puncture site over ulnar styloid expected swelling of sting no indication of allergic reaction ) Neurological: Reports: Anxiety. Denies: Cognitive dysfunction (note ill fitting clothing and not recently bathed) Endocrine: Reports: No symptoms Hematologic/Lymphatic: Reports: No symptoms All Other Systems: Other Past Medical History - Past Medical History Previously Healthy: Yes Endocrine: Reports: None Cardiovascular: Reports: Hypertension Respiratory: Reports: None Hematological: Reports: None Gastrointestinal: Reports: GERD Genitourinary: Reports: None Neuro/Psych: Reports: Anxiety, Depression Musculoskeletal: Reports: Arthritis, Joint Pain Cancer: Reports: None Last Menstrual Period: menopause Other Pertinent Past Medical History: Osteoporosis - Surgical History General Surgical History: Reports: Tubal ligation, Orthopedic ( CARPAL TUNNEL) - Family History Family History: Reports: Unknown - Social History Smoking Status: Former smoker Hx Substance Use: No Alcohol Screening: None Physical Exam - Physical Exam Appearance: Well-appearing Pain Distress: Mild Neck: Supple Respiratory: Airway patent Skin: Warm, Normal color (note lesion about 4x5cm) Neurological: Sensation intact Psychiatric: Anxious Re-Evaluation - Re-Evaluation Time of Re-Evaluation: 07:07 Status: Improved (note on discharge area with swelling much improved no further itching discussed brief use of ice pack with patient) Critical Care Note - Critical Care Note Total Time (mins): 0 Course - Course Orders, Labs, Meds: Orders Category Date Time Status Diphenhydramine Inj [Benadryl] MEDS 05/27/17 18:34 Discontinued 25 mg IM ONCE STA Medications Discontinued Medications Generic Name Dose Route Start Last Admin Trade Name Frida PRN Reason Stop Dose Admin Diphenhydramine HCl 25 mg 05/27/17 18:34 05/27/17 18:47 Benadryl IM 05/27/17 18:35 25 mg ONCE STA Administration Vital Signs: Temp Pulse Resp BP Pulse Ox 05/27/17 17:48 99.5 F 92 H 20 116/79 98 Departure - Departure Time of Disposition: 18:39 Disposition: HOME SELF-CARE Discharge Problem: Sting, wasp Instructions: Insect Bite or Sting (ED) Condition: Good Pt referred to PMD for follow-up: Yes Additional Instructions: may use prednisone for allergic reaction Benadryl for itching recheck PMD 3-5 days return if fever over 101.0 or if wheezing or short of air Prescriptions: Diphenhydramine HCl [Benadryl] 25 mg PO QID #30 capsule Prednisone 20 mg PO DIRECTED #50 tablet Allergies/Adverse Reactions: Allergies doxycycline Allergy (Mild, Verified 05/27/17 17:56) sick to stomach wheat Allergy (Mild, Verified 05/27/17 17:56) n/v clindamycin Adverse Reaction (Verified 05/27/17 17:56) naproxen Adverse Reaction (Verified 05/27/17 17:56) Penicillins Adverse Reaction (Verified 05/27/17 17:56) [place] Adverse Reaction (Uncoded 02/17/17 18:10) Home Medications: Ambulatory Orders Acetaminophen [Tylenol] 500 mg PO Q6H PRN #30 tablet 06/23/16 Hydrocodone/Acetaminophen [[place] 5-325 Tablet] 1 each PO BID 09/27/16 Naproxen [Naprosyn] 500 mg PO Q12HR PRN #30 tablet 03/27/17 Diphenhydramine HCl [Benadryl] 25 mg PO QID #30 capsule 05/27/17 Prednisone 20 mg PO DIRECTED #50 tablet 05/27/17 Disposition Discussed With: Patient
[2017-05-27] MEDS ORDERED: BENADRYL IM STA (18:34)
== END 2017-05-27 18:52 | disposition home or self-care (01) ==
LOC: ED 17:48
DX: T63.461A Toxic effect of venom of wasps, accidental (unintentional), initial encounter (principal); R60.0 Localized edema
CPT/HCPCS: 96372; 99282

== ENCOUNTER 2017-07-16 12:13 | Outpatient (CLI) ==
[2017-07-16 12:31] LABS: BASOPHILS % (AUTO) 0.5 % (0.0-3.0); EOSINOPHILS # (AUTO) 0.4 K/ul (0.0-0.7); EOSINOPHILS % (AUTO) 4.8 % (0.0-7.0); HEMATOCRIT 34.3 % (37.0-47.0); HEMOGLOBIN 11.3 g/dl (12.0-16.0); IMMATURE GRANULOCYTE % (AUTO) 0.4 % (0.0-5.0); LYMPHOCYTES # (AUTO) 1.9 K/uL (0.60-3.4); LYMPHOCYTES % (AUTO) 25.2 (10.0-50.0); MEAN CORPUSCULAR HEMOGLOBIN 30.9 pg (27.0-31.0); MEAN CORPUSCULAR HGB CONC 32.9 (31.8-35.4); MEAN CORPUSCULAR VOLUME 93.7 fl (81.0-99.0); MONOCYTES # (AUTO) 0.6 K/uL (0.4-2.0); MONOCYTES % (AUTO) 7.3 (0-10); NEUTROPHILS # (AUTO) 4.7 K/ul (2.0-6.9); NEUTROPHILS % (AUTO) 61.8; PLATELET COUNT 284 10^3/uL (140-440); RED BLOOD COUNT 3.66 10^6/ul (4.20-5.40); WHITE BLOOD COUNT 7.55 K/ul (4.6-10.2)
[2017-07-16 13:13] LABS: ALBUMIN 3.4 g/dL (3.4-5.0); ALBUMIN/GLOBULIN RATIO 0.97; ANION GAP 13.9; BILIRUBIN,TOTAL 0.46 mg/dL (0.00-1.20); BUN/CREATININE RATIO 16.07; CHOL/HDL RATIO 3.8 (4.5-5.5); CREATININE 1.12 mg/dL (0.60-1.30); POTASSIUM 3.9 mmol/L (3.5-5.10); TOTAL PROTEIN 6.9 g/dL (6.4-8.2)
== END 2017-07-16 12:14 | disposition home or self-care (01) ==
LOC: LAB 12:13
PROVIDERS: ATTEND Podiatrist
DX: I10 Essential (primary) hypertension (principal); E78.4 Other hyperlipidemia; F33.0 Major depressive disorder, recurrent, mild
CPT/HCPCS: 36415; 80053; 80061; 84443; 85025; 93005; 93010

== ENCOUNTER 2017-07-19 13:22 | Emergency (ER) ==
[2017-07-19 13:26] VITALS: BP 159/100; TEMP 96.7; BMI 26.6
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
--- NOTE | 2017-07-19 14:11 | DI ---
EXAM: Lumbar spine radiographs. HISTORY: Initial presentation for back injury. COMPARISON: 10/31/2016. TECHNIQUE: 5 views of the lumbar spine. FINDINGS: Mild left convex curvature centered near L3 noted. Alignment is normal. Paravertebral mirza dy heights are maintained. Mild endplate osteophyte formation and facet arthropathy noted. No fract ure or subluxation identified. Sacral arcuate lines are intact. There are severe right hip osteoart hritic changes. Soft tissues are without acute abnormality. IMPRESSION: No acute abnormality of the lumbar spine.
[2017-07-19 14:47] LABS: BILIRUBIN,URINE Negative (NEGATIVE); KETONES,URINE Negative (NEGATIVE); LEUKOCYTE ESTERASE ,URINE Negative (NEGATIVE); NITRITE,URINE Negative (NEGATIVE); PROTEIN,URINE Negative (NEGATIVE); URINE, BLOOD Negative (NEGATIVE)
[2017-07-19 14:48] LABS: ADD URINE MICROSCOPIC NO
== END 2017-07-19 15:15 | disposition home or self-care (01) ==
LOC: ED 13:22
DX: S39.012A Strain of muscle, fascia and tendon of lower back, initial encounter (principal); R10.30 Lower abdominal pain, unspecified; V19.9XXA Pedal cyclist (driver) (passenger) injured in unspecified traffic accident, initial encounter
CPT/HCPCS: 81001; 99283

== ENCOUNTER 2017-08-30 09:43 | Emergency (ER) ==
[2017-08-30 09:50] VITALS: BP 143/97; TEMP 96.9; BMI 26.1
--- NOTE | 2017-08-30 10:03 | ED.PDOC ---
General ED Provider: Dr. CT MACK Chief Complaint: Wound Check Stated Complaint: wound check left dorsal foot Time Seen by Physician: 09:45 (wound was sutured before ) Mode of Arrival: Walk-In Information Source: Patient Exam Limitations: No limitations Primary Care Provider: JOYCE WOLFRosas Referred to ED by: Other (the wound opend up in the shower ) Nursing and Triage Documentation Reviewed and Agree: Yes (see photos ) Skin Complaint Exam - Skin/Soft Tissue Complaint/Exam Onset/Duration: today Symptoms Are: Still present Timing: Constant Current Severity: Mild Location: dorsal left foot see photos Character: Reports: Redness, Painful. Denies: Swelling, Raised Aggravating: Reports: Heat, Cold, Touch Alleviating: Reports: None Associated Signs and Symptoms: Reports: Bruising, Tenderness. Denies: Fever, Chills, Itching, Drainage, Red streaks, Joint swelling Related History: Reports: Similar episode Related Surgical History: Reports: None Recent Exposure to Others w/Similar Symptoms: No Skin Findings: Present: Other (wound left foot) Review of Systems - Review Of Systems Constitutional: Reports: No symptoms Eyes: Reports: No symptoms Ears, Nose, Mouth, Throat: Reports: No symptoms Respiratory: Reports: No symptoms Cardiac: Reports: No symptoms GI: Reports: No symptoms : Reports: No symptoms Musculoskeletal: Reports: No symptoms Skin: Reports: Other (see photos of the wound of the left foot ) Neurological: Reports: No symptoms Endocrine: Reports: No symptoms Hematologic/Lymphatic: Reports: No symptoms All Other Systems: Reviewed and Negative Past Medical History - Past Medical History Previously Healthy: Yes Endocrine: Reports: None Cardiovascular: Reports: Hypertension Respiratory: Reports: None Hematological: Reports: None Gastrointestinal: Reports: GERD Genitourinary: Reports: None Neuro/Psych: Reports: Anxiety, Depression Musculoskeletal: Reports: Arthritis, Joint Pain Cancer: Reports: None Last Menstrual Period: n/a Other Pertinent Past Medical History: Osteoporosis - Surgical History General Surgical History: Reports: Tubal ligation, Orthopedic ( CARPAL TUNNEL) - Family History Family History: Reports: Unknown - Social History Smoking Status: Former smoker Hx Substance Use: No Alcohol Screening: None - Immunizations Influenza Vaccine within 12 Months: No Pneumococcal Vaccine up to Date: No Physical Exam - Physical Exam Appearance: Well-appearing, No pain distress, Well-nourished Eyes: HECTOR, EOMI, Conjunctiva clear ENT: Ears normal, Nose normal, Oropharynx normal Respiratory: Airway patent, Breath sounds clear, Breath sounds equal, Respirations nonlabored Cardiovascular: RRR, Pulses normal, No rub, No murmur GI/: Soft, Nontender, No masses, Bowel sounds normal, No Organomegaly Musculoskeletal: Normal strength, ROM intact, No edema, No calf tenderness Skin: Warm, Dry (1 cm wound various stages of healing) Neurological: Sensation intact, Motor intact, Reflexes intact, Cranial nerves intact, Alert, Oriented Psychiatric: Affect appropriate, Mood appropriate Critical Care Note - Critical Care Note Total Time (mins): 0 Course - Course Vital Signs: Temp Pulse Resp BP Pulse Ox 08/30/17 09:44 96.9 F L 78 16 143/97 H 98 Departure - Departure Time of Disposition: 10:05 (see photos, seen with orlnado at all times ) Disposition: HOME SELF-CARE Discharge Problem: Wound Instructions: Wound Infection (ED), Acute Wound Care (ED), Wound Healing and Your Diet (ED) Condition: Good Pt referred to PMD for follow-up: Yes Additional Instructions: Please call your Family Physician as soon as possible to schedule a follow-up appointment. Allergies/Adverse Reactions: Allergies doxycycline Allergy (Mild, Verified 08/30/17 09:51) sick to stomach wheat Allergy (Mild, Verified 08/30/17 09:51) n/v clindamycin Adverse Reaction (Verified 08/30/17 09:51) naproxen Adverse Reaction (Verified 08/30/17 09:51) Penicillins Adverse Reaction (Verified 08/30/17 09:51) Sauerkraut Adverse Reaction (Uncoded 02/17/17 18:10) Home Medications: Ambulatory Orders Acetaminophen [Tylenol] 500 mg PO Q6H PRN #30 tablet 06/23/16 Hydrocodone/Acetaminophen [Kanab 5-325 Tablet] 1 each PO BID 09/27/16 Disposition Discussed With: Patient
== END 2017-08-30 10:16 | disposition home or self-care (01) ==
LOC: ED 09:43
DX: T81.31XA Disruption of external operation (surgical) wound, not elsewhere classified, initial encounter (principal)
CPT/HCPCS: 99283

== ENCOUNTER 2017-09-07 14:22 | Inpatient (IN) ==
[2017-09-07] MEDS ORDERED: TYLENOL PO PRN (15:27)
[2017-09-07] MEDS ORDERED: VANCOMYCIN 1,000 MG in SODIUM CHLORIDE 200 ML IV SCH (15:30)
[2017-09-07] MEDS: ROCEPHIN 1 GM in SODIUM CHLORIDE 50 ML IV SCH (16:35)
[2017-09-07] MEDS: SODIUM CHLORIDE 1,000 ML IV SCH (16:35)
[2017-09-07] MEDS: LOVENOX SUBCUT SCH (16:35)
--- NOTE | 2017-09-07 16:38 | CT ---
EXAM: CT left foot without contrast HISTORY: Left foot wound. COMPARISON: Left foot x-ray 02/04/2016 TECHNIQUE: Serial axial images of the left foot were performed without contrast. These were viewed in multiple planes. FINDINGS: The distal tibia and fibula are normal.. The calcaneus is normal with small posterior and plantar spurs. The talus is normal. The navicular bone is unremarkable. Tarsal bones are normal. There is degenerative change at the first tarsal-metatarsal joint. Toes are normal. The arch is nichole ntained. There is minimal degenerative change of the medial and lateral malleolus. Soft tissues demo nstrate a wound overlying the region of the second and third toes. There is mild subcutaneous strand ing in this region. There is no focal fluid collection. IMPRESSION: 1. Soft tissue injury in the plantar aspect of the second and third MTP joint. There is no osseous erosion or lucency to suggest osteomyelitis. Findings are consistent with phlegmon/early infection. No drainable fluid collection is identified. 2. Mild scattered degenerative change with calcaneal spurs present.
[2017-09-07] MEDS: ZANTAC PO SCH (16:48)
[2017-09-07] MEDS ORDERED: NON-FORMULARY MEDICATION (Ferrous Sulfate [Ferrous Sulfate] 325 MG) PO SCH (21:00)
[2017-09-07] MEDS ORDERED: NON-FORMULARY MEDICATION (Cyclobenzaprine Hcl [Cyclobenzaprine Hcl] 5 MG) PO SCH (21:00)
[2017-09-07] MEDS: FERROUS SULFATE PO SCH (21:16)
[2017-09-07] MEDS: NORCO 5-325 PO SCH (21:16)
[2017-09-07] MEDS: FLEXERIL PO SCH (21:16)
[2017-09-07] MEDS: NEURONTIN PO SCH (21:16)
[2017-09-08] MEDS: ZANTAC PO SCH ×2 (06:08→16:55)
[2017-09-08] MEDS: SODIUM CHLORIDE 1,000 ML IV SCH ×2 (08:14→23:18)
[2017-09-08] MEDS ORDERED: NON-FORMULARY MEDICATION (Escitalopram Oxalate [Lexapro] 20 MG) PO SCH (09:00)
[2017-09-08] MEDS: ROCEPHIN 1 GM in SODIUM CHLORIDE 50 ML IV SCH (09:03)
[2017-09-08] MEDS: NEURONTIN PO SCH ×3 (09:04→20:22)
[2017-09-08] MEDS: LOVENOX SUBCUT SCH (09:04)
[2017-09-08] MEDS: LEXAPRO PO SCH (09:04)
[2017-09-08] MEDS: NORCO 5-325 PO SCH ×2 (09:05→20:22)
[2017-09-08] MEDS: FLEXERIL PO SCH ×2 (09:05→20:22)
[2017-09-08] MEDS: ZESTRIL PO SCH (09:05)
[2017-09-08] MEDS: FERROUS SULFATE PO SCH ×2 (09:05→20:22)
[2017-09-08] MEDS: LIPITOR PO SCH (09:05)
[2017-09-08] MEDS: VANCOMYCIN 500 MG in SODIUM CHLORIDE 100 ML IV SCH ×2 (09:53→20:21)
[2017-09-09] MEDS: ZANTAC PO SCH ×2 (05:54→16:41)
[2017-09-09] MEDS: LOVENOX SUBCUT SCH (08:23)
[2017-09-09] MEDS: LEXAPRO PO SCH (08:24)
[2017-09-09] MEDS: NORCO 5-325 PO SCH ×2 (08:24→20:14)
[2017-09-09] MEDS: NEURONTIN PO SCH ×3 (08:24→20:14)
[2017-09-09] MEDS: ZESTRIL PO SCH (08:25)
[2017-09-09] MEDS: FERROUS SULFATE PO SCH ×2 (08:25→20:14)
[2017-09-09] MEDS: FLEXERIL PO SCH ×2 (08:25→20:14)
[2017-09-09] MEDS: LIPITOR PO SCH (08:25)
[2017-09-09] MEDS: ROCEPHIN 1 GM in SODIUM CHLORIDE 50 ML IV SCH (08:48)
[2017-09-09] MEDS: VANCOMYCIN 500 MG in SODIUM CHLORIDE 100 ML IV SCH ×2 (09:33→20:14)
[2017-09-09] MEDS: SODIUM CHLORIDE 1,000 ML IV SCH (13:46)
[2017-09-10] MEDS: ZANTAC PO SCH ×2 (05:34→17:25)
[2017-09-10] MEDS: ROCEPHIN 1 GM in SODIUM CHLORIDE 50 ML IV SCH (08:44)
[2017-09-10] MEDS: NEURONTIN PO SCH ×3 (08:44→20:44)
[2017-09-10] MEDS: ZESTRIL PO SCH (08:45)
[2017-09-10] MEDS: FLEXERIL PO SCH ×2 (08:45→20:43)
[2017-09-10] MEDS: FERROUS SULFATE PO SCH ×2 (08:45→20:43)
[2017-09-10] MEDS: LIPITOR PO SCH (08:45)
[2017-09-10] MEDS: LEXAPRO PO SCH (08:46)
[2017-09-10] MEDS: LOVENOX SUBCUT SCH (08:46)
[2017-09-10] MEDS: NORCO 5-325 PO SCH ×2 (09:01→20:44)
[2017-09-10] MEDS: ZINC-220 PO SCH ×2 (09:25→20:44)
[2017-09-10] MEDS: VITAMIN C PO SCH ×2 (09:25→20:44)
--- NOTE | 2017-09-10 10:44 | DI ---
Exam: Two x-rays of the right forearm. Comparison: None available. Reason for exam: Fall. FINDINGS: No acute fracture or malalignment. The cortices are intact. No unexplained calcific soft tissue density or radiopaque retained foreign body. Impression: No acute fracture or malalignment is seen within the right radius or ulna.
--- NOTE | 2017-09-10 10:48 | DI ---
EXAM: Three views of the right hand HISTORY: Fall with hand wrist and forearm pain. COMPARISON: Right wrist x-rays same day FINDINGS: There is no cortical irregularity or displaced fracture of the right hand. There is no lyt ic or blastic lesion. The joint spaces are maintained. Soft tissues demonstrate mild soft tissue sw elling. IMPRESSION: No acute abnormality or displaced fracture of the right hand with mild soft tissue swell ing.
--- NOTE | 2017-09-10 10:48 | DI ---
EXAM: Right wrist three views HISTORY: Pain COMPARISON: Right wrist 09/12/2015 FINDINGS: No acute fracture, dislocation or bony abnormality. The surrounding soft tissues are unre markable. IMPRESSION: No acute findings.
--- NOTE | 2017-09-10 14:34 | PN ---
DATE OF SERVICE: 09/08/17 SUBJECTIVE: The patient was admitted with the left foot post surgical infection. The wound cultures are pending. Not draining much. The opening is still there and still hurting. REVIEW OF SYSTEMS: CONSTITUTIONAL: No fever, no chills. HEENT: Normal. ENDOCRINE: No weight gain, no weight loss. CVS: No angina symptoms. No CHF symptoms. No palpitations. No atypical chest pain for CAD. No shortness of breath. No PND, no orthopnea. RESPIRATORY: No cough, no hemoptysis. GI: No nausea, no vomiting. No abdominal pain. : No hematuria. No polyuria. MUSCULOSKELETAL:. No joint swelling. PSYCHIATRIC: Not anxious. No depression. No suicidal thoughts. No homicidal thoughts. SKIN: Intact. No rash. PHYSICAL EXAMINATION: V/S: Blood pressure 117/83, respiratory rate 20, heart rate 74 and temperature 97.4 with saturation 95% on room air. HEENT: Normocephalic, atraumatic. Mucosa dry. Pallor positive. No icterus. NECK: Supple. No JVD, no carotid bruit. No lymphadenopathy. LUNGS: Clear to auscultation. No rales or rhonchi. HEART: S1, S2 normal. No S3. No murmur, gallop or regurgitation. ABDOMEN: Soft, nontender. Bowel sounds active. No rigidity. No rebound or guarding. No CVA tenderness. EXTREMITIES: No clubbing, cyanosis or pedal edema. Left foot wound redness and swelling is present. Tender to touch. Draining clear today. No foul smell to the wound today. MUSCULOSKELETAL: No joint swelling. NEUROLOGIC: Awake, alert, oriented times three. No focal deficit. LYMPHATIC: No lymph nodes palpable. SKIN: Intact. LABS: WBC 7.59, hgb 10.4, hct 32.7, plt count 283, sodium 142, potassium 3.9, chloride 108, bicarb 24, BUN 18, creatinine 1.98 and glucose 98. ASSESSMENT: 1. Right foot post surgical infection, no abscess per CAT scan of the foot 2. Anemia 3. UTI 4. GERD 5. DJD spine 6. Osteoarthritis 7. Depression 8. Anxiety PLAN: 1. Continue the Rocephin and Vancomycin 2. IV fluids 3. Activity as tolerated Will follow the patient in daily rounds. TIME SPENT: More than 35 minutes MTDD
--- NOTE | 2017-09-10 14:40 | PN ---
DATE OF SERVICE: 09/09/17 SUBJECTIVE: The patient was admitted with left foot post surgical infection and swelling. Urine culture tanvir the e-coli. Wound culture is pending. Still has some pain and tenderness to the foot. Otherwise no fever or chills. REVIEW OF SYSTEMS: CONSTITUTIONAL: No fever, no chills. HEENT: Normal. ENDOCRINE: No weight gain, no weight loss. CVS: No angina symptoms. No CHF symptoms. No palpitations. No atypical chest pain for CAD. No shortness of breath. No PND, no orthopnea. RESPIRATORY: No cough, no hemoptysis. GI: No nausea, no vomiting. No abdominal pain. : No hematuria. No polyuria. MUSCULOSKELETAL:. No joint swelling. PSYCHIATRIC: Not anxious. No depression. No suicidal thoughts. No homicidal thoughts. SKIN: Intact. No rash. PHYSICAL EXAMINATION: V/S: Blood pressure 110/73, respiratory 20, heart rate 73, temperature 97.9 with saturation 97% on the room air. HEENT: Normocephalic, atraumatic. Mucosa dry. NECK: Supple. No JVD, no carotid bruit. No lymphadenopathy. LUNGS: Clear to auscultation. No rales or rhonchi. HEART: S1, S2 normal. No S3. No murmur, gallop or regurgitation. ABDOMEN: Soft, nontender. Bowel sounds active. No rigidity. No rebound or guarding. No CVA tenderness. EXTREMITIES: No clubbing, cyanosis or pedal edema. Left foot examination. The patient had a band-aid, it was just put in so it was not open and examined. MUSCULOSKELETAL: No joint swelling. NEUROLOGIC: Awake, alert, oriented times three. No focal deficit. LYMPHATIC: No lymph nodes palpable. SKIN: Intact. LABS: Sodium 142, potassium 4.3, chloride 109, bicarb 23, BUN 21, creatinine 0.92, WBC 6.16, hgb 9.7, hct 29.7, plt count 238. ASSESSMENT: 1. Left foot post surgical infection, no osteomyelitis or no abscess per CAT scan 2. History of hypertension 3. Dyslipidemia 4. Osteoarthritis 5. DJD spine 6. UTI PLAN: 1. Continue the Rocephin and Vancomycin 2. Out of bed to chair activity as tolerated 3. Lovenox for the DVT prophylaxis TIME SPENT: More than 35 minutes MTDD
[2017-09-10] MEDS: SODIUM CHLORIDE 1,000 ML IV SCH (15:21)
[2017-09-11] MEDS: ZANTAC PO SCH ×2 (05:39→17:03)
[2017-09-11] MEDS: LIPITOR PO SCH (09:13)
[2017-09-11] MEDS: LEXAPRO PO SCH (09:13)
[2017-09-11] MEDS: ROCEPHIN 1 GM in SODIUM CHLORIDE 50 ML IV SCH (09:13)
[2017-09-11] MEDS: FERROUS SULFATE PO SCH ×2 (09:13→21:23)
[2017-09-11] MEDS: VITAMIN C PO SCH ×2 (09:14→21:23)
[2017-09-11] MEDS: FLEXERIL PO SCH ×2 (09:14→21:23)
[2017-09-11] MEDS: ZESTRIL PO SCH (09:14)
[2017-09-11] MEDS: NEURONTIN PO SCH ×3 (09:14→21:23)
[2017-09-11] MEDS: LOVENOX SUBCUT SCH (09:15)
[2017-09-11] MEDS: NORCO 5-325 PO SCH ×2 (09:15→21:23)
[2017-09-11] MEDS: ZINC-220 PO SCH ×2 (09:33→21:23)
[2017-09-11] MEDS: SODIUM CHLORIDE 1,000 ML IV SCH (13:57)
[2017-09-12] MEDS: ZANTAC PO SCH ×2 (06:03→17:47)
[2017-09-12] MEDS ORDERED: OCEAN NASAL SPRAY NAS PRN (07:55)
[2017-09-12] MEDS ORDERED: DECADRON 4 MG/ML SDV IM STA (07:55)
[2017-09-12] MEDS: FERROUS SULFATE PO SCH ×2 (09:04→20:48)
[2017-09-12] MEDS: NEURONTIN PO SCH ×3 (09:04→20:49)
[2017-09-12] MEDS: VITAMIN C PO SCH ×2 (09:04→20:49)
[2017-09-12] MEDS: LEXAPRO PO SCH (09:04)
[2017-09-12] MEDS: LIPITOR PO SCH (09:05)
[2017-09-12] MEDS: ZESTRIL PO SCH (09:05)
[2017-09-12] MEDS: NORCO 5-325 PO SCH ×2 (09:05→20:48)
[2017-09-12] MEDS: FLEXERIL PO SCH ×2 (09:05→20:48)
[2017-09-12] MEDS: ZINC-220 PO SCH ×2 (09:07→20:48)
[2017-09-12] MEDS: LOVENOX SUBCUT SCH (09:09)
[2017-09-12] MEDS: ROCEPHIN 1 GM in SODIUM CHLORIDE 50 ML IV SCH (09:11)
--- NOTE | 2017-09-12 11:29 | RS.PTINEVL ---
Subjective - Patient information Date of Evaluation: 09/12/17 Date of Arrival on Unit: 09/10/17 Admitted From:: Home Diagnosis: L foot wound infection, UTI Usual Living Arrangement: With Spouse Home Environment: Stairs (few), Rail Medical History: Hypertension, Arthritis Medical History Comments:: GERD, anxiety, anemia LATEX ALLERGY?: No Surgical History Comments:: nerve surgery to L foot Medications: see chart Subjective Information/ Patient Comments:: pt states she was taking a shower and wound "came open". pt states she also suffered a fall at home prior to admit causing pain to R wrist, hand and R knee. - Level of function Prior to this admission, the patient could do the following:: Independent Ambulation Abilities prior to this admission: pt's assisted with cooking and ADL's if needed Current Level of Function: Partially Dependent Current Equipment Used at Home: rollator rwx, cane Pain Assessement - Location Right Knee Description: Sharp, Aching Intensity: 8 Pain Behavior: Facial Grimacing Pain Aggravating Factors: Exercise/Activity, Standing, Walking, Stair Climbing Pain Alleviating Factors: Medication Effects of Pain: limits mobility Interventions - Objective Patient Orientation: Person, Place, Time, Situation Current Interventions: IV's, Telemetry Observation: pt with open wound dorsum of L foot without dressing (pt states MD wants left open to air) wound is 90% yellow slough and 10% pink viable tissue. Edema BLE L > R Range of Motion - ROM Right Upper Extremity AROM: WFL's Left Upper Extremity AROM: WFL's Right Lower Extremity AROM: WFL's Left Lower Extremity AROM: WFL's Muscle Strength - Muscle Strength Right Upper Extremity Strength: Mild Weakness (shld flex 3+/5, elbow flex/ext 4- /5, decreased contaminated land consultant BUE) Left Upper Extremity Strength: Mild Weakness (shld flex 3+/5, elbow flex/ext 4-/ 5, decreased contaminated land consultant BUE) Right Lower Extremity Strength: Mild Weakness (hip flex 3+/5, knee flex/ext 4-/5 , ankle df/PF 4-/5) Left Lower Extremity Strength: Mild Weakness (hip flex 4-/5, knee flex/ext 4/5, ankle DF/PF 4/5) Sensation - Sensation Right Upper Extremity Sensation: Impaired Left Upper Extremity Sensation: Impaired Right Lower Extremity Sensation: Intact/Normal Left Lower Extremity Sensation: Intact/Normal Comments: pt reports n/t B hands due to "carpal tunnel" Palpation Palpation Findings: None/Normal Balance - Sitting Balance and Reactions Static Sitting Balance: Good Dynamic Sitting Balance: Good Sitting Equilibrium Reactions: Within Normal Limits Left, Within Normal Limit Right Sitting Protective Reactions: Within Normal Limits Left, Within Normal Limit Right - Standing Balance and Reactions Static Standing Balance: Fair Dynamic Standing Balance: Poor Standing Equilibrium Reactions: Delayed Left, Delayed Right Standing Protective Reactions: Delayed Left, Delayed Right - Comments Balance Assessment Comments: tinetti assessment which is consistent with high fall risk . Functional Mobility - Bed Mobility Rolling R/L: Independent Scooting: Independent Supine to Sit: Supervision Sit to Supine: CGA - Transfers Sit to Stand: CGA Stand to Sit: CGA - Safety Awareness Safety Awareness: Fair Ambulation - Ambulation Assistive Device Used: Rolling Walker Orthotic/Prosthetic Device: No Distance: 100ft Assistance needed with Ambulation: CGA, 1 person assist Gait Deviations: Wide Based gait, Forward posture, Short stride Ambulation Comments: pt amb with flexed posture, decreased step length, pt requires cues for walker placement and gait sequencing. Factors Affecting Ambulation: Decreased Balance, Pain, Weakness, Decreased Safety, Limited Endurance Treatment time - Time with patient Total treatment time: 28 Patient Education - Education Patient Education: Home Safety, Activity Modification, Education of Plan of Care Teaching Recipient: Patient Teaching Methods: Discussion (Discussed with pt safety with transfers and proper use of AD) Assessment - Assessment Problem List:: Decreased level of function, Requires training/education, Decreased safety/Risk of falls, Weakness, Pain limits previous level of function , Cognitive status limits abilities Rehab Potential: Fair Further Therapy Indicated?: Yes Short Term Goals GOAL #1: pt transfer sup to/from sit independently, sit to/from stand SBA Goal to be met by: 09/14/17 GOAL #2: pt amb with rwx 150ft with no loss of balance with SBA Goal to be met by: 09/14/17 Yard Inspector Goals GOAL #1: pt amb with rwx functional distances independently with no LOB. Goal to be met by: 09/16/17 GOAL #2: pt demonstrate improved dyn stand balance as noted by tinetti score Goal to be met by: 09/16/17 GOAL #3: pt demonstrate improved strength BLE 4 to 4+/5 and independent with HEP Goal to be met by: 09/16/17 Plan Plan of Care: Therapeutic EX, Neuromuscular Re-Educ, Therapeutic Activity, Self- Care/Home Management Other:: gait training Frequency of Treatment: 1-2 X day, as tolerated Duration of Treatment: 4 days Anticipated Discharge Destination: Home (feel pt will be able to return home after dc) Has the Physician been added for Co-signature?: Yes
--- NOTE | 2017-09-12 11:49 | PN ---
DATE OF SERVICE: 09/10/17 SUBJECTIVE: The patient was admitted with left foot wound infection. The wound did grow Klebsiella Oxytoca. The patient is on the Rocephin which is sensitive. Still hurting draining yellow puss. The patient's wound is being packed and the patient is encouraged to walk. REVIEW OF SYSTEMS: CONSTITUTIONAL: No fever, no chills. HEENT: Normal. ENDOCRINE: No weight gain, no weight loss. CVS: No angina symptoms. No CHF symptoms. No palpitations. No atypical chest pain for CAD. No shortness of breath. No PND, no orthopnea. RESPIRATORY: No cough, no hemoptysis. GI: No nausea, no vomiting. No abdominal pain. : No hematuria. No polyuria. MUSCULOSKELETAL:. No joint swelling. PSYCHIATRIC: Not anxious. No depression. No suicidal thoughts. No homicidal thoughts. SKIN: Intact. No rash. PHYSICAL EXAMINATION: V/S: Blood pressure 121/84, respiratory rate 18, heart rate 81, temperature 97.9 , saturation 95%. HEENT: Normocephalic, atraumatic. Mucosa dry. Pallor positive. No icterus. NECK: Supple. No JVD, no carotid bruit. No lymphadenopathy. LUNGS: Clear to auscultation. No rales or rhonchi. HEART: S1, S2 normal. No S3. No murmur, gallop or regurgitation. ABDOMEN: Soft, nontender. Bowel sounds active. No rigidity. No rebound or guarding. No CVA tenderness. EXTREMITIES: No clubbing, cyanosis or pedal edema. Left foot wound packing is removed and the base is still having yellowish and some blackish coloration. Redness on the surface is resolved. MUSCULOSKELETAL: No joint swelling. NEUROLOGIC: Awake, alert, oriented times three. No focal deficit. LYMPHATIC: No lymph nodes palpable. SKIN: Intact. LABS: WBC 6.16, hgb 9.7, hct 29.7, plt count 238, sodium 142,. potassium 4.3, chloride 109, bicarb 23, BUN 21, creatinine 0.92 ASSESSMENT: 1. Left foot surgical post operative wound grew klebsiella Oxytoca 2. Anemia 3. Hypertension 4. Dyslipidemia 5. Left foot surgery for the neuroma 6. Depression 7. Anxiety PLAN: 1. Continue the Rocephin 2. Activity as tolerated 3. Lovenox for the DVT prophylaxis TIME SPENT: More than 35 minutes MTDD
--- NOTE | 2017-09-12 11:55 | PN ---
DATE OF SERVICE: 09/11/17 SUBJECTIVE: The patient was admitted with left foot post surgical wound infection. Swelling and redness is better. Still has pain. REVIEW OF SYSTEMS: CONSTITUTIONAL: No fever, no chills. HEENT: Normal. ENDOCRINE: No weight gain, no weight loss. CVS: No angina symptoms. No CHF symptoms. No palpitations. No atypical chest pain for CAD. No shortness of breath. No PND, no orthopnea. RESPIRATORY: No cough, no hemoptysis. GI: No nausea, no vomiting. No abdominal pain. : No hematuria. No polyuria. MUSCULOSKELETAL:. No joint swelling. PSYCHIATRIC: Not anxious. No depression. No suicidal thoughts. No homicidal thoughts. SKIN: Intact. No rash. PHYSICAL EXAMINATION: V/S: Blood pressure 112/80, respiratory rate 18, heart rate 86, temperature 98.0 and saturation 97. HEENT: Normocephalic, atraumatic. Mucosa dry. NECK: Supple. No JVD, no carotid bruit. No lymphadenopathy. LUNGS: Clear to auscultation. No rales or rhonchi. HEART: S1, S2 normal. No S3. No murmur, gallop or regurgitation. ABDOMEN: Soft, nontender. Bowel sounds active. No rigidity. No rebound or guarding. No CVA tenderness. EXTREMITIES: No clubbing, cyanosis or pedal edema. Left foot examination. Tender to touch and warm to touch. Base of the wound is yellowish and still drainage. The packing is all yellow drainage covered. MUSCULOSKELETAL: No joint swelling. NEUROLOGIC: Awake, alert, oriented times three. No focal deficit. LYMPHATIC: No lymph nodes palpable. SKIN: Intact. LABS: Sodium 140, potassium 3.8, chloride 108, bicarb 25, BUN 25, Creatinine 0.94, WBC 6.13, hgb 10.2. hct 31.4, plt count 266. ASSESSMENT: 1. Left foot post surgery wound, no abscess no osteomyelitis per CAT scan Klebsiella Oxytoca is organism 2. Anemia 3. Hypertension 4. Dyslipidemia 5. Depression 6. Anxiety 7. Osteoarthritis PLAN: 1. Continue the Rocephin 2. Keep the leg elevated 3. Activity as tolerated TIME SPENT: More than 35 minutes MTDD
[2017-09-12] MEDS: SODIUM CHLORIDE 1,000 ML IV SCH ×2 (14:17→16:59)
[2017-09-13] MEDS: ZANTAC PO SCH ×2 (05:56→17:17)
[2017-09-13] MEDS: SODIUM CHLORIDE 1,000 ML IV SCH (08:47)
[2017-09-13] MEDS: LEXAPRO PO SCH (09:02)
[2017-09-13] MEDS: LIPITOR PO SCH (09:02)
[2017-09-13] MEDS: ROCEPHIN 1 GM in SODIUM CHLORIDE 50 ML IV SCH (09:02)
[2017-09-13] MEDS: ZESTRIL PO SCH (09:02)
[2017-09-13] MEDS: FERROUS SULFATE PO SCH ×2 (09:02→20:44)
[2017-09-13] MEDS: NEURONTIN PO SCH ×3 (09:02→20:44)
[2017-09-13] MEDS: VITAMIN C PO SCH ×2 (09:02→20:44)
[2017-09-13] MEDS: ZINC-220 PO SCH ×2 (09:03→20:51)
[2017-09-13] MEDS: FLEXERIL PO SCH ×2 (09:03→20:44)
[2017-09-13] MEDS: LOVENOX SUBCUT SCH (09:03)
[2017-09-13] MEDS: NORCO 5-325 PO SCH ×2 (09:08→20:44)
[2017-09-14] MEDS: ZANTAC PO SCH ×2 (05:56→16:43)
[2017-09-14] MEDS: LIPITOR PO SCH (08:41)
[2017-09-14] MEDS: LOVENOX SUBCUT SCH (08:41)
[2017-09-14] MEDS: LEXAPRO PO SCH (08:41)
[2017-09-14] MEDS: ROCEPHIN 1 GM in SODIUM CHLORIDE 50 ML IV SCH (08:41)
[2017-09-14] MEDS: ZINC-220 PO SCH ×2 (08:42→21:09)
[2017-09-14] MEDS: ZESTRIL PO SCH (08:42)
[2017-09-14] MEDS: NEURONTIN PO SCH ×3 (08:42→21:06)
[2017-09-14] MEDS: FLEXERIL PO SCH ×2 (08:42→21:09)
[2017-09-14] MEDS: NORCO 5-325 PO SCH ×2 (08:42→21:09)
[2017-09-14] MEDS: VITAMIN C PO SCH ×2 (08:42→21:09)
[2017-09-14] MEDS: FERROUS SULFATE PO SCH ×2 (08:43→21:09)
[2017-09-15] MEDS: ZANTAC PO SCH ×2 (05:55→17:45)
[2017-09-15] MEDS: NEURONTIN PO SCH ×2 (08:24→15:44)
[2017-09-15] MEDS: NORCO 5-325 PO SCH (08:24)
[2017-09-15] MEDS: VITAMIN C PO SCH (08:24)
[2017-09-15] MEDS: ZESTRIL PO SCH (08:24)
[2017-09-15] MEDS: LEXAPRO PO SCH (08:24)
[2017-09-15] MEDS: LIPITOR PO SCH (08:24)
[2017-09-15] MEDS: FERROUS SULFATE PO SCH (08:25)
[2017-09-15] MEDS: LOVENOX SUBCUT SCH (08:25)
[2017-09-15] MEDS: FLEXERIL PO SCH (08:25)
[2017-09-15] MEDS: ROCEPHIN 1 GM in SODIUM CHLORIDE 50 ML IV SCH (08:25)
[2017-09-15] MEDS: ZINC-220 PO SCH (08:26)
[2017-09-15 18:23] VITALS: BP 112/82; TEMP 97.2
[2017-09-15] MEDS ORDERED: LIBRIUM PO SCH (21:00)
--- NOTE | 2017-09-17 13:43 | PN ---
DATE OF SERVICE: 09/13/17 SUBJECTIVE: The patient is admitted with left foot open wound infection after surgery. The patient is walking good. The wound did grow Klebsiella Oxytoca. Urine grew E. coli. No fever or chills. She is still having drainage, yellow color. REVIEW OF SYSTEMS: CONSTITUTIONAL: No fever, no chills. HEENT: Normal. ENDOCRINE: No weight gain, no weight loss. CVS: No angina symptoms. No CHF symptoms. No palpitations. No atypical chest pain for CAD. No shortness of breath. No PND, no orthopnea. RESPIRATORY: No cough, no hemoptysis. GI: No nausea, no vomiting. No abdominal pain. : No hematuria. No polyuria. MUSCULOSKELETAL:. No joint swelling. PSYCHIATRIC: Not anxious. No depression. No suicidal thoughts. No homicidal thoughts. SKIN: Intact. Left foot wound. PHYSICAL EXAMINATION: V/S: BP 107/71, respiratory rate 18, heart rate 92, temperature 97.2, saturation 98. HEENT: Normocephalic, atraumatic. Mucosa dry. Pallor positive. No icterus. NECK: Supple. No JVD, no carotid bruit. No lymphadenopathy. LUNGS: Bilateral entry is decreased and clear. Clear to auscultation. No rales or rhonchi. HEART: S1, S2 normal. No S3. No murmur, gallop or regurgitation. ABDOMEN: Soft, nontender. Bowel sounds active. No rigidity. No rebound or guarding. No CVA tenderness. EXTREMITIES: No clubbing, cyanosis or pedal edema. MUSCULOSKELETAL: No joint swelling. NEUROLOGIC: Awake, alert, oriented times three. No focal deficit. LYMPHATIC: No lymph nodes palpable. SKIN: Left foot wound 1 cm opening on the second and third toe, base is still yellowish, tender to touch. LABS: Hemoglobin 10.5, hematocrit 31.6, platelet count 266, white count 6.38. Sodium 144, potassium 3.9, chloride 108, bicarb 26, BUN 23, creatinine 0.94. ASSESSMENT: 1. LEFT FOOT POST SURGICAL OPEN WOUND GROWING KLEBSIELLA OXYTOCA 2. UTI, ORGANISM E. COLI 3. ANEMIA 4. HYPERTENSION 5. DYSLIPIDEMIA PLAN: 1. Continue Rocephin 1 gm daily 2. Please do wound packing 3. IV Rocephin 4. Keep the legs elevated 5. Activity as tolerated TIME SPENT: More than 30 minutes MTDD
--- NOTE | 2017-09-18 15:19 | PN ---
DATE OF SERVICE: 09/14/17 SUBJECTIVE: Left foot wound is looking better with wound packing. The wound looks more dry and clear bases. She still has some pain. Physical Therapy is helping her to walk. REVIEW OF SYSTEMS: CONSTITUTIONAL: No fever, no chills. HEENT: Normal. ENDOCRINE: No weight gain, no weight loss. CVS: No angina symptoms. No CHF symptoms. No palpitations. No atypical chest pain for CAD. No shortness of breath. No PND, no orthopnea. RESPIRATORY: No cough, no hemoptysis. GI: No nausea, no vomiting. No abdominal pain. : No hematuria. No polyuria. MUSCULOSKELETAL:. No joint swelling. PSYCHIATRIC: Not anxious. No depression. No suicidal thoughts. No homicidal thoughts. SKIN: Intact. No rash. PHYSICAL EXAMINATION: V/S: Blood pressure 115/63, respiratory rate 16, heart rate 70, temperature 98.0. HEENT: Normocephalic, atraumatic. Mucosa dry. NECK: Supple. No JVD, no carotid bruit. No lymphadenopathy. LUNGS: Clear to auscultation. No rales or rhonchi. HEART: S1, S2 normal. No S3. No murmur, gallop or regurgitation. ABDOMEN: Soft, nontender. Bowel sounds active. No rigidity. No rebound or guarding. No CVA tenderness. EXTREMITIES: No clubbing, cyanosis or pedal edema. MUSCULOSKELETAL: No joint swelling. Range of motion in the foot is intact. NEUROLOGIC: Awake, alert, oriented times three. No focal deficit. LYMPHATIC: No lymph nodes palpable. SKIN: Left foot wound. The base is healthy. The opening is almost 1.2 cm. Depth is almost half a cm. I can see the clear bases today. LABS: White count is 6.38, hemoglobin 10.5, hematocrit 31.6, platelet count 266 , sodium 144, potassium 3.8, chloride 108, bicarb 26, BUN 23, creatinine 0.98. ASSESSMENT: 1. LEFT FOOT POST SURGICAL WOUND 2. ANEMIA 3. HYPERTENSION 4. DEPRESSION 5. ANXIETY PLAN: 1. Continue the Rocephin. 2. Physical Therapy, out patient therapy. 3. Activity as tolerated. 4. Will follow up with the patient in daily rounds. TIME SPENT: More than 35 minutes today. [facility]ITAL[facility]
--- NOTE | 2017-09-28 15:41 | PN ---
DATE OF SERVICE: 09/15/17 SUBJECTIVE: The patient was admitted with left post surgical wound after taking out the Neuroma and there has wound dehiscence with an open of almost 1.2cm. We have been doing the wound packing. The wound did grow Klebsiella Oxytoca and sensitive to the Rocephin. Pain,swelling and redness are better. REVIEW OF SYSTEMS: CONSTITUTIONAL: No fever, no chills. HEENT: Normal. ENDOCRINE: No weight gain, no weight loss. CVS: No angina symptoms. No CHF symptoms. No palpitations. No atypical chest pain for CAD. No shortness of breath. No PND, no orthopnea. RESPIRATORY: No cough, no hemoptysis. GI: No nausea, no vomiting. No abdominal pain. : No hematuria. No polyuria. MUSCULOSKELETAL:. No joint swelling. PSYCHIATRIC: Not anxious. No depression. No suicidal thoughts. No homicidal thoughts. SKIN: Intact. No rash. PHYSICAL EXAMINATION: V/S: Blood pressure 101/67, respiratory rate 16, heart rate 86, temperature 98.4 and saturation is 98. HEENT: Normocephalic, atraumatic. Mucosa dry. NECK: Supple. No JVD, no carotid bruit. No lymphadenopathy. LUNGS: Clear to auscultation. No rales or rhonchi. HEART: S1, S2 normal. No S3. No murmur, gallop or regurgitation. ABDOMEN: Soft, nontender. Bowel sounds active. No rigidity. No rebound or guarding. No CVA tenderness. EXTREMITIES: No clubbing, cyanosis or pedal edema. Left foot examination 1.2cm open wound just below the second toe. Bases are clean. MUSCULOSKELETAL: No joint swelling. NEUROLOGIC: Awake, alert, oriented times three. No focal deficit. LYMPHATIC: No lymph nodes palpable. SKIN: Intact. LABS: WBC 6.38, hgb 10.5, hct 31.6, plt count 2666, sodium 144, potassium 3.9, chloride 108, bicarb 26, BUN 24, creatinine 0.94 and glucose 90 ASSESSMENT: 1. Left foot wound dehiscence and open wound Klebsiella oxytoca positive 2. UTI, e-coli positive. 3. History of hypertension 4. Depression 5. Osteoarthritis PLAN: 1. Continue the Rocephin 1 gram daily 2. Wound packing 3. Activity as much as tolerated. TIME SPENT: More than 30 minutes MTDD
--- NOTE | 2017-09-28 15:44 | AMA ---
HISTORY: Around evening 6:00 the patient decided that she has to go against AMA. The patient is still being treated for the left foot open wound with packing and dressing. The patient decided that she can not stay anymore and has to leave against medical advise. We did explain the risks of the osteomyelitis and worsening of the infection in the foot. The patient says that if things get worse she will come back. The patient does have appointment with Dr. Obando on the Sunday of coming week. MARILY
== END 2017-09-15 19:45 | disposition left against medical advice (07) | DRG 863 ==
LOC: MEDSURG B 14:22
PROVIDERS: ADMIT Emergency Medicine; ATTEND Emergency Medicine
DX: T81.4XXA Infection following a procedure, initial encounter (principal); N39.0 Urinary tract infection, site not specified; L08.9 Local infection of the skin and subcutaneous tissue, unspecified; D64.9 Anemia, unspecified; K21.9 Gastro-esophageal reflux disease without esophagitis; M47.9 Spondylosis, unspecified; M19.90 Unspecified osteoarthritis, unspecified site; F41.8 Other specified anxiety disorders; I10 Essential (primary) hypertension; E78.5 Hyperlipidemia, unspecified; B96.1 Klebsiella pneumoniae [K. pneumoniae] as the cause of diseases classified elsewhere; Z98.890 Other specified postprocedural states; Z16.11 Resistance to penicillins; B96.20 Unspecified Escherichia coli [E. coli] as the cause of diseases classified elsewhere; Z79.899 Other long term (current) drug therapy
CPT/HCPCS: 36415; 80053; 81001; 85025; 85651; 87040; 87070; 87081; 87086; 87186; 93005; 93010; 97802

== ENCOUNTER 2017-09-25 18:32 | Emergency (ER) ==
[2017-09-25 18:42] VITALS: BP 153/91; TEMP 98.2; BMI 25.7
--- NOTE | 2017-09-25 18:50 | ED.PDOC ---
General ED Provider: Dr. CT MACK Chief Complaint: Nausea/Vomiting Stated Complaint: foot pain none healing wound left foot Time Seen by Physician: 18:48 Information Source: Patient Exam Limitations: No limitations [facility] Nursing and Triage Documentation Reviewed and Agree: Yes Reviewed sepsis parameters & appropriate labs ordered?: Yes System Inflammatory Response Syndrome: Not Applicable Sepsis Protocol: For patient's 13 years and over: Temp is 96.8 and below OR 101 and greater Pulse >90 BPM Resp >20/minute Acutely Altered Mental Status Are patient's symptoms suggestive of a new infection, such as: -Pneumonia -Skin, Soft Tissue -Endocarditis -UTI -Bone, Joint Infection -Implantable Device -Acute Abdominal Infection -Wound Infection -Meningitis -Blood Stream Catheter Infection -Unknown System Inflammatory Response Syndrome: Not Applicable Musculoskeletal Complaint Exam - Ankle/Foot Complaint/Exam Location of Injury: Reports: Left, Foot Mechanism of Injury: Reports: No known trauma Onset/Duration: chronic wound care issue pt does not follow up also has flu like symptoms Symptoms Are: Reports: Still present Onset of Pain: Reports: Weeks Initial Severity: Mild Current Severity: Mild Location: Reports: Discrete (fot ) Character: Reports: Dull Alleviating: Reports: None Aggravating: Reports: None Associated Signs and Symptoms: Denies: Swelling, Redness, Bruising, Fever, Weakness, Numbness, Tingling Tenderness: Present: Metatarsals Differential Diagnosis: Other (chronic wound) Review of Systems - Review Of Systems Constitutional: Reports: No symptoms Eyes: Reports: No symptoms Ears, Nose, Mouth, Throat: Reports: No symptoms Respiratory: Reports: No symptoms Cardiac: Reports: No symptoms GI: Reports: Nausea, Vomiting : Reports: No symptoms Musculoskeletal: Reports: Joint pain Skin: Reports: No symptoms Neurological: Reports: No symptoms Endocrine: Reports: No symptoms Hematologic/Lymphatic: Reports: No symptoms All Other Systems: Reviewed and Negative Past Medical History - Past Medical History Previously Healthy: Yes Endocrine: Reports: None Cardiovascular: Reports: Hypertension Respiratory: Reports: None Hematological: Reports: None Gastrointestinal: Reports: GERD Genitourinary: Reports: None Neuro/Psych: Reports: Anxiety, Depression Musculoskeletal: Reports: Arthritis, Joint Pain Cancer: Reports: None Last Menstrual Period: N/A Other Pertinent Past Medical History: Osteoporosis - Surgical History General Surgical History: Reports: Tubal ligation, Orthopedic ( CARPAL TUNNEL) - Family History Family History: Reports: Unknown - Social History Smoking Status: Former smoker Hx Substance Use: No Alcohol Screening: None - Immunizations Influenza Vaccine within 12 Months: No Pneumococcal Vaccine up to Date: No Physical Exam - Physical Exam Appearance: Well-appearing, No pain distress, Well-nourished Eyes: HECTOR, EOMI, Conjunctiva clear ENT: Ears normal, Nose normal, Oropharynx normal Respiratory: Airway patent, Breath sounds clear, Breath sounds equal, Respirations nonlabored Cardiovascular: RRR, Pulses normal, No rub, No murmur GI/: Soft, Nontender, No masses, Bowel sounds normal, No Organomegaly Musculoskeletal: Normal strength, ROM intact, No edema, No calf tenderness Skin: Warm, Dry (see photos of the foot no drainage noted ), Normal color Neurological: Sensation intact, Motor intact, Reflexes intact, Cranial nerves intact, Alert, Oriented Psychiatric: Affect appropriate, Mood appropriate Critical Care Note - Critical Care Note Total Time (mins): 0 Course - Course Vital Signs: Temp Pulse Resp BP Pulse Ox 09/25/17 18:34 98.2 F 95 H 18 153/91 H 99 Departure - Departure Time of Disposition: 18:50 Disposition: HOME SELF-CARE Discharge Problem: Nausea, Vomiting Wound, open, foot Qualifiers: Encounter type: sequela Laterality: left Qualified Code(s): S91.302S - Unspecified open wound, left foot, sequela Instructions: Chronic Wounds (ED) Condition: Good Pt referred to PMD for follow-up: Yes Allergies/Adverse Reactions: Allergies doxycycline Allergy (Mild, Verified 09/25/17 18:57) sick to stomach wheat Allergy (Mild, Verified 09/25/17 18:57) n/v clindamycin Adverse Reaction (Verified 09/25/17 18:57) naproxen Adverse Reaction (Verified 09/25/17 18:57) Penicillins Adverse Reaction (Verified 09/25/17 18:57) Sauerkraut Adverse Reaction (Uncoded 02/17/17 18:10) Home Medications: Ambulatory Orders Acetaminophen [Tylenol] 500 mg PO Q6H PRN #30 tablet 06/23/16 Hydrocodone/Acetaminophen [[place] 5-325 Tablet] 1 each PO BID 09/27/16 Cephalexin [Keflex] 500 mg PO Q12HR 7 Days #14 capsule 09/15/17 Disposition Discussed With: Patient, Family
== END 2017-09-25 19:01 | disposition home or self-care (01) ==
LOC: ED 18:32
DX: S91.302S Unspecified open wound, left foot, sequela (principal); R11.2 Nausea with vomiting, unspecified
CPT/HCPCS: 99282

== ENCOUNTER 2017-09-28 13:08 | Outpatient (CLI) | END 2017-09-28 13:09 | disposition home or self-care (01) | LOC: LAB 13:08 | PROVIDERS: ATTEND Emergency Medicine | DX: R68.89 Other general symptoms and signs (principal) | CPT/HCPCS: 87502; 87651 ==

== ENCOUNTER 2017-10-09 12:52 | Outpatient (CLI) | END 2017-10-09 12:53 | disposition home or self-care (01) | LOC: LAB 12:52 | PROVIDERS: ATTEND Emergency Medicine | DX: N30.01 Acute cystitis with hematuria (principal); R31.9 Hematuria, unspecified | CPT/HCPCS: 87086 ==

== ENCOUNTER 2017-10-10 09:29 | Outpatient (CLI) | END 2017-10-10 09:30 | disposition home or self-care (01) | LOC: WOUND 09:29 | PROVIDERS: ATTEND Nurse Practitioner Family | DX: T81.89XA Other complications of procedures, not elsewhere classified, initial encounter (principal); I10 Essential (primary) hypertension; F06.4 Anxiety disorder due to known physiological condition; F33.9 Major depressive disorder, recurrent, unspecified | CPT/HCPCS: 11042; 99202; 99205 ==

== ENCOUNTER 2017-10-11 11:03 | Outpatient (CLI) ==
--- NOTE | 2017-10-11 12:20 | DI ---
EXAM: LEFT FOOT, 3 VIEWS HISTORY: Mid foot pain FINDINGS: Bone and joint structures appear normal. No fracture, joint dislocation or joint effusio n is seen. Bone density and soft tissues are within normal limits. IMPRESSION: Within normal limits.
== END 2017-10-11 11:04 | disposition home or self-care (01) ==
LOC: RAD 11:03
PROVIDERS: ATTEND Emergency Medicine
DX: M79.672 Pain in left foot (principal)

== ENCOUNTER 2017-10-24 08:43 | Outpatient (CLI) ==
[2017-10-25 17:36] VITALS: BMI 26.5
== END 2017-10-24 08:44 | disposition home or self-care (01) ==
LOC: WOUND 08:43
PROVIDERS: ATTEND Nurse Practitioner Family
DX: T81.89XA Other complications of procedures, not elsewhere classified, initial encounter (principal); I10 Essential (primary) hypertension; F06.4 Anxiety disorder due to known physiological condition; F33.9 Major depressive disorder, recurrent, unspecified
CPT/HCPCS: 87070

== ENCOUNTER 2017-10-25 10:22 | Inpatient (IN) ==
--- NOTE | 2017-10-25 12:48 | ED.PDOC ---
General ED Provider: Dr. RUBY CARLOS Chief Complaint: Nausea/Vomiting Stated Complaint: Nausea and vomiting Time Seen by Physician: 12:25 Mode of Arrival: Walk-In Information Source: Patient Exam Limitations: No limitations [facility] Nursing and Triage Documentation Reviewed and Agree: Yes Reviewed sepsis parameters & appropriate labs ordered?: Yes System Inflammatory Response Syndrome: Not Applicable Sepsis Protocol: For patient's 13 years and over: Temp is 96.8 and below OR 101 and greater Pulse >90 BPM Resp >20/minute Acutely Altered Mental Status Are patient's symptoms suggestive of a new infection, such as: -Pneumonia -Skin, Soft Tissue -Endocarditis -UTI -Bone, Joint Infection -Implantable Device -Acute Abdominal Infection -Wound Infection -Meningitis -Blood Stream Catheter Infection -Unknown System Inflammatory Response Syndrome: Not Applicable Review of Systems - Review Of Systems Constitutional: Reports: Fever, Weakness, Loss of appetite Eyes: Reports: No symptoms Ears, Nose, Mouth, Throat: Reports: Throat pain Respiratory: Reports: Cough, Short of air, Wheezing Cardiac: Reports: No symptoms GI: Reports: Difficulty swallowing, Nausea, Vomiting : Reports: No symptoms Musculoskeletal: Reports: No symptoms Skin: Reports: No symptoms Endocrine: Reports: No symptoms Hematologic/Lymphatic: Reports: No symptoms All Other Systems: Reviewed and Negative Past Medical History - Past Medical History Previously Healthy: Yes Endocrine: Reports: None Cardiovascular: Reports: Hypertension Respiratory: Reports: None Hematological: Reports: None Gastrointestinal: Reports: GERD Genitourinary: Reports: None Neuro/Psych: Reports: Anxiety, Depression Musculoskeletal: Reports: Arthritis, Joint Pain, Other (foot infection ) Cancer: Reports: None Last Menstrual Period: menopause Other Pertinent Past Medical History: Osteoporosis - Surgical History General Surgical History: Reports: Tubal ligation, Orthopedic ( CARPAL TUNNEL) - Family History Family History: Reports: Unknown - Social History Smoking Status: Former smoker Hx Substance Use: No Alcohol Screening: None - Immunizations Influenza Vaccine within 12 Months: No Pneumococcal Vaccine up to Date: No Physical Exam - Physical Exam Appearance: Obese Ill-appearing: Mild Pain Distress: None Eyes: HECTOR, EOMI, Conjunctiva clear ENT: Ears normal, Nose normal, Oropharynx normal Neck: Supple Respiratory: Airway patent, Wheezes Cardiovascular: RRR GI/: Soft, Nontender, No masses, Bowel sounds normal Musculoskeletal: Normal strength, ROM intact, No edema Skin: Warm, Dry Neurological: Sensation intact, Motor intact, Reflexes intact Psychiatric: Affect appropriate (Flat affect), Mood appropriate Critical Care Note - Critical Care Note Total Time (mins): 0 Course - Course Hematology/Chemistry: 10/25/17 13:05 10/25/17 13:05 Orders, Labs, Meds: Lab Review 10/25/17 10/25/17 10/25/17 13:05 13:05 13:05 WBC 6.00 RBC 3.70 L Hgb 11.4 L Hct 35.5 L MCV 95.9 MCH 30.8 MCHC 32.1 RDW Coeff of Michele 13.0 Plt Count 259 Neutrophils % (Manual) 84.0 H Lymphocytes % (Manual) 10.0 Monocytes % (Manual) 2.0 Eosinophils % (Manual) 3.0 Reactive Lymphocytes 1.0 Anisocytosis Not present Sodium 143 Potassium 3.6 Chloride 103 Carbon Dioxide 30 Anion Gap 13.6 BUN 10 Creatinine 0.99 Estimated GFR (MDRD) 59.00 BUN/Creatinine Ratio 10.10 Glucose 79 Calcium 9.9 Total Bilirubin 0.3 AST 18 ALT 16 Alkaline Phosphatase 104 H Total Protein 6.7 Albumin 3.3 L Globulin 3.4 Albumin/Globulin Ratio 0.97 Urine Color Urine Clarity Urine pH Ur Specific [place] Urine Protein Urine Glucose (UA) Urine Ketones Urine Blood Urine Nitrite Urine Bilirubin Urine Urobilinogen Ur Leukocyte Esterase Urine Opiates Screen Ur Oxycodone Screen Urine Methadone Screen Ur Propoxyphene Screen Acetaminophen Ur Barbiturates Screen U Tricyclic Antidepress Ur Phencyclidine Scrn Ur Amphetamine Screen U Methamphetamines Scrn U Benzodiazepines Scrn Urine Cocaine Screen U Cannabinoids Screen Influenza A (Rapid) Negative by naat Influenza B (Rapid) Negative by naat 10/25/17 10/25/17 10/25/17 13:05 13:30 13:30 WBC RBC Hgb Hct MCV MCH MCHC RDW Coeff of Michele Plt Count Neutrophils % (Manual) Lymphocytes % (Manual) Monocytes % (Manual) Eosinophils % (Manual) Reactive Lymphocytes Anisocytosis Sodium Potassium Chloride Carbon Dioxide Anion Gap BUN Creatinine Estimated GFR (MDRD) BUN/Creatinine Ratio Glucose Calcium Total Bilirubin AST ALT Alkaline Phosphatase Total Protein Albumin Globulin Albumin/Globulin Ratio Urine Color Yellow Urine Clarity Clear Urine pH 7.5 Ur Specific [place] 1.015 Urine Protein Negative Urine Glucose (UA) Negative Urine Ketones Negative Urine Blood Negative Urine Nitrite Negative Urine Bilirubin Negative Urine Urobilinogen 0.2 Ur Leukocyte Esterase Negative Urine Opiates Screen Negative Ur Oxycodone Screen Negative Urine Methadone Screen Negative Ur Propoxyphene Screen Negative Acetaminophen < 3 L Ur Barbiturates Screen Negative U Tricyclic Antidepress Negative Ur Phencyclidine Scrn Negative Ur Amphetamine Screen Negative U Methamphetamines Scrn Negative U Benzodiazepines Scrn Negative Urine Cocaine Screen Negative U Cannabinoids Screen Negative Influenza A (Rapid) Influenza B (Rapid) Orders Category Date Time Status ACETAMINOPHEN Stat LAB 10/25/17 13:05 Completed CBC W/ AUTO DIFF Stat LAB 10/25/17 13:05 Completed CMP [COMPREHENSIVE METABOLIC PANEL] Stat LAB 10/25/17 13:05 Completed FLU A & B MOLECULAR [FLU A/B MOLECULAR] Stat LAB 10/25/17 13:05 Completed MANUAL DIFFERENTIAL Stat LAB 10/25/17 13:05 Completed MOLECULAR GROUP A STREP Stat LAB 10/25/17 13:05 Completed UA [URINALYSIS C & S IF INDICATED] Stat LAB 10/25/17 13:30 Completed URINE DRUG SCREEN (RAPID FOR ED) [DRUG SCREEN, URINE, LAB 10/25/17 13:30 Completed RAPID] Stat Acetaminophen [Tylenol] MEDS 10/25/17 14:56 Discontinued 650 mg PO ONCE STA Ondansetron [Zofran Odt] MEDS 10/25/17 12:52 Discontinued 4 mg PO ONCE STA CHEST, 2 VIEWS PA & LAT Stat RADS 10/25/17 15:47 Completed Medications Discontinued Medications Generic Name Dose Route Start Last Admin Trade Name Freq PRN Reason Stop Dose Admin Acetaminophen 650 mg 10/25/17 14:56 10/25/17 15:05 Tylenol PO 10/25/17 14:57 650 mg ONCE STA Administration Ondansetron HCl 4 mg 10/25/17 12:52 10/25/17 13:04 Zofran Odt PO 10/25/17 12:53 4 mg ONCE STA Administration Vital Signs: Temp Pulse Resp BP Pulse Ox 10/25/17 15:45 99.3 F 111 H 20 152/98 H 95 10/25/17 10:23 100.2 F H 85 16 147/101 H 96 Departure - Departure Time of Disposition: 16:40 Disposition: ADMITTED INPATIENT Discharge Problem: Pneumonia, community acquired, Wound infection, Weakness Condition: Fair Pt referred to PMD for follow-up: No IPMP verified?: Yes Additional Instructions: Discussed case with Dr Bingham; Agrees with admission due to concern over outpatient compliance in obtaining previously prescribed oral antibiotics X 3 . In addition apparently also has foot ulcer and abscess that is suspected to have not been adequately treated Allergies/Adverse Reactions: Allergies doxycycline Allergy (Mild, Verified 10/25/17 10:31) sick to stomach wheat Allergy (Mild, Verified 10/25/17 10:31) n/v clindamycin Adverse Reaction (Verified 10/25/17 10:31) naproxen Adverse Reaction (Verified 10/25/17 10:31) Penicillins Adverse Reaction (Verified 10/25/17 10:31) Sauerkraut Adverse Reaction (Uncoded 02/17/17 18:10) Home Medications: Ambulatory Orders Acetaminophen [Tylenol] 500 mg PO Q6H PRN #30 tablet 06/23/16 Cephalexin [Keflex] 500 mg PO BID #7 tab-cap 10/24/17 Additional Comments Additional Comments: Discussed case with Dr Bingham; Agrees with admission due to concern over outpatient compliance in obtaining previously prescribed oral antibiotics X 3 . In addition apparently also has foot ulcer and abscess that is suspected to have not been adequately treated
[2017-10-25] MEDS ORDERED: ZOFRAN ODT PO STA (12:52)
[2017-10-25] MEDS ORDERED: TYLENOL PO STA ×2 (14:56→22:15)
--- NOTE | 2017-10-25 16:26 | DI ---
EXAM: PA and lateral views of the chest HISTORY: Chest wheezing and productive cough COMPARISON: None FINDINGS: The cardiomediastinal silhouette is normal. There is no pneumothorax or pleural effusion. There is no consolidation, nodule or mass. There is linear consolidation noted in the right mid aster g likely representing a focus of atelectasis. Lungs are mildly hyperinflated. The osseous structures demonstrate degenerative disease of the spine. IMPRESSION: 1. Linear consolidation in the right upper lobe most consistent with atelectasis versus pneumonia. Follow-up to resolution is recommended. 2. No additional abnormality is identified.
[2017-10-25 17:36] VITALS: BMI 26.5
[2017-10-25] MEDS: SODIUM CHLORIDE 1,000 ML IV SCH (17:45)
[2017-10-25] MEDS: SODIUM CHLORIDE 1,000 ML IV STA ×2 (17:46→18:05)
[2017-10-25] MEDS: LEVAQUIN 500 MG in PREMIX 100 ML D5W 1 BAG IV SCH (17:46)
[2017-10-25] MEDS: ROCEPHIN 1 GM in SODIUM CHLORIDE 50 ML IV STA ×2 (17:47→21:20)
[2017-10-25] MEDS: ALBUTEROL 0.083% NEB NEB SCH (19:40)
[2017-10-25] MEDS ORDERED: ZANTAC PO SCH (21:00)
[2017-10-25] MEDS ORDERED: LOVENOX SUBCUT SCH (21:00)
[2017-10-25] MEDS ORDERED: ROCEPHIN ONE (21:14)
[2017-10-25] MEDS ORDERED: FERROUS SULFATE ONE (21:30)
[2017-10-25] MEDS: NON-FORMULARY MEDICATION (Cyclobenzaprine Hcl [Cyclobenzaprine Hcl] 5 MG) PO SCH ×3 (21:32→21:36)
[2017-10-25] MEDS: NON-FORMULARY MEDICATION (Ferrous Sulfate [Ferrous Sulfate] 325 MG) PO SCH ×2 (21:32→21:33)
[2017-10-25] MEDS: NEURONTIN PO SCH (21:32)
[2017-10-25] MEDS: FLEXERIL ONE ×2 (21:34→21:36)
[2017-10-26] MEDS ORDERED: ALBUTEROL 0.083% NEB NEB SCH
[2017-10-26] MEDS: SODIUM CHLORIDE 1,000 ML IV SCH (03:16)
[2017-10-26] MEDS: ALBUTEROL 0.083% NEB NEB SCH ×4 (05:56→20:30)
[2017-10-26] MEDS ORDERED: NON-FORMULARY MEDICATION (Escitalopram Oxalate [Lexapro] 20 MG) PO SCH (09:00)
[2017-10-26] MEDS: FLONASE NAS SCH (09:02)
[2017-10-26] MEDS: LEVAQUIN 500 MG in PREMIX 100 ML D5W 1 BAG IV SCH (09:03)
[2017-10-26] MEDS: CHLORASEPTIC SPRAY MM PRN ×3 (09:03→14:42)
[2017-10-26] MEDS: FERROUS SULFATE PO SCH ×2 (09:06→20:41)
[2017-10-26] MEDS: ZESTRIL PO SCH (09:06)
[2017-10-26] MEDS: FLEXERIL PO SCH ×2 (09:06→20:41)
[2017-10-26] MEDS: NEURONTIN PO SCH ×3 (09:06→20:41)
[2017-10-26] MEDS: LIPITOR PO SCH (09:07)
[2017-10-26] MEDS: LEXAPRO PO SCH (09:08)
--- NOTE | 2017-10-26 15:00 | RS.PTINEVL ---
Subjective - Patient information Date of Evaluation: 10/26/17 Date of Arrival on Unit: 10/25/17 Admitted From:: Home Diagnosis: pneumonia, wound infection, weakness Usual Living Arrangement: With Spouse Living Arrangement Comments: lives with Home Environment: House, Stairs (few) Medical History: Hypertension, Arthritis, Other Medical History Comments:: osteoporosis, depression, anxiety, GERD, LATEX ALLERGY?: No Surgical History Comments:: carpal tunnel release Subjective Information/ Patient Comments:: pt states that she wants to get up and walk. - Level of function Prior to this admission, the patient could do the following:: Independent Ambulation Current Level of Function: Partially Dependent Current Equipment Used at Home: cane/walker Pain Assessement - Location Back Description: Aching Duration: 2 Pain Behavior: Facial Grimacing Pain Aggravating Factors: Exercise/Activity, Standing, Walking Pain Alleviating Factors: Medication Interventions - Objective Patient Orientation: Person, Place, Time, Situation Current Interventions: IV's, Telemetry Range of Motion - ROM Right Upper Extremity AROM: WFL's Left Upper Extremity AROM: WFL's Right Lower Extremity AROM: WFL's Left Lower Extremity AROM: WFL's Muscle Strength - Muscle Strength Right Upper Extremity Strength: Mild Weakness (grossly 4/5) Left Upper Extremity Strength: Mild Weakness (grossly 4/5) Right Lower Extremity Strength: Mild Weakness (hip flex 4/5, knee flex/ext 4+/5 , ankle DF/PF 4+/5) Left Lower Extremity Strength: Mild Weakness (hip flex 4/5, knee flex/ext 4+/5, ankle DF/PF 4+/5) Sensation - Sensation Right Upper Extremity Sensation: Intact/Normal Left Upper Extremity Sensation: Intact/Normal Right Lower Extremity Sensation: Intact/Normal Left Lower Extremity Sensation: Intact/Normal Palpation Palpation Findings: None/Normal Balance - Sitting Balance and Reactions Static Sitting Balance: Good Dynamic Sitting Balance: Good Sitting Equilibrium Reactions: Within Normal Limits Left, Within Normal Limit Right Sitting Protective Reactions: Within Normal Limits Left, Within Normal Limit Right - Standing Balance and Reactions Static Standing Balance: Good Dynamic Standing Balance: Fair - Comments Balance Assessment Comments: no LOB during amb Functional Mobility - Bed Mobility Rolling R/L: Independent Scooting: Independent Supine to Sit: Independent Sit to Supine: Independent - Transfers Sit to Stand: Independent Stand to Sit: Independent - Safety Awareness Safety Awareness: Good Ambulation - Ambulation Assistive Device Used: Rolling Walker Orthotic/Prosthetic Device: No Distance: 200ft Assistance needed with Ambulation: Supervision Ambulation Comments: pt amb with slight antalgic gait Factors Affecting Ambulation: Weakness Treatment time - Time with patient Total treatment time: 25 Patient Education - Education Patient Education: Home Safety Teaching Recipient: Patient Teaching Methods: Discussion Comments: Discussion with patient regarding safety with amb and that she should continue to amb in hallway with nursing staff or family. Assessment - Assessment Further Therapy Indicated?: No Comments: Feel pt does not require skilled PT at this time due to patient is able to amb with only [facility] Goals Comments: Tinetti score 21/28 Plan Other:: eval only Frequency of Treatment: One time treatment Duration of Treatment: One Time Treatment Anticipated Discharge Destination: Home Has the Physician been added for Co-signature?: Yes
[2017-10-26] MEDS: ZANTAC PO SCH (16:50)
[2017-10-26] MEDS: NORCO 5-325 PO SCH ×2 (17:18→23:15)
[2017-10-26] MEDS: ROCEPHIN 1 GM in SODIUM CHLORIDE 50 ML IV SCH (20:40)
[2017-10-26] MEDS: LOVENOX SUBCUT SCH (20:43)
[2017-10-27] MEDS: CHLORASEPTIC SPRAY MM PRN ×2 (04:19→16:01)
[2017-10-27] MEDS: ALBUTEROL 0.083% NEB NEB SCH ×4 (04:34→21:22)
[2017-10-27] MEDS: ZANTAC PO SCH ×2 (05:32→16:02)
[2017-10-27] MEDS: NORCO 5-325 PO SCH ×3 (05:33→21:18)
[2017-10-27] MEDS: LEVAQUIN 500 MG in PREMIX 100 ML D5W 1 BAG IV SCH (08:38)
[2017-10-27] MEDS: FLONASE NAS SCH (08:38)
[2017-10-27] MEDS: NEURONTIN PO SCH ×3 (08:38→21:18)
[2017-10-27] MEDS: FERROUS SULFATE PO SCH ×2 (08:38→21:18)
[2017-10-27] MEDS: LEXAPRO PO SCH (08:38)
[2017-10-27] MEDS: LIPITOR PO SCH (08:39)
[2017-10-27] MEDS: ZESTRIL PO SCH (08:39)
[2017-10-27] MEDS: FLEXERIL PO SCH ×2 (08:39→21:18)
[2017-10-27] MEDS: PHENERGAN WITH CODEINE 6.25/10 MG/5 ML PO PRN (21:15)
[2017-10-27] MEDS: LOVENOX SUBCUT SCH (21:16)
[2017-10-27] MEDS: ROCEPHIN 1 GM in SODIUM CHLORIDE 50 ML IV SCH (21:17)
[2017-10-28] MEDS: ALBUTEROL 0.083% NEB NEB SCH ×4 (04:30→20:00)
[2017-10-28] MEDS: PHENERGAN WITH CODEINE 6.25/10 MG/5 ML PO PRN ×4 (04:39→22:11)
[2017-10-28] MEDS: NORCO 5-325 PO SCH ×3 (04:39→20:50)
[2017-10-28] MEDS: ZANTAC PO SCH ×2 (05:44→16:05)
[2017-10-28] MEDS: FLONASE NAS SCH (08:39)
[2017-10-28] MEDS: NEURONTIN PO SCH ×3 (08:39→20:49)
[2017-10-28] MEDS: LEVAQUIN 500 MG in PREMIX 100 ML D5W 1 BAG IV SCH (08:39)
[2017-10-28] MEDS: LEXAPRO PO SCH (08:39)
[2017-10-28] MEDS: FERROUS SULFATE PO SCH ×2 (08:39→20:50)
[2017-10-28] MEDS: FLEXERIL PO SCH ×2 (08:39→20:49)
[2017-10-28] MEDS: ZESTRIL PO SCH (08:39)
[2017-10-28] MEDS: LIPITOR PO SCH (08:39)
[2017-10-28] MEDS: LOVENOX SUBCUT SCH (20:50)
[2017-10-28] MEDS: ROCEPHIN 1 GM in SODIUM CHLORIDE 50 ML IV SCH (20:51)
[2017-10-29] MEDS: ALBUTEROL 0.083% NEB NEB SCH ×4 (04:50→20:43)
[2017-10-29] MEDS: NORCO 5-325 PO SCH ×3 (05:54→20:39)
[2017-10-29] MEDS: ZANTAC PO SCH ×2 (05:54→16:49)
[2017-10-29] MEDS: FERROUS SULFATE PO SCH ×2 (08:32→20:39)
[2017-10-29] MEDS: FLEXERIL PO SCH ×2 (08:32→20:39)
[2017-10-29] MEDS: LEVAQUIN 500 MG in PREMIX 100 ML D5W 1 BAG IV SCH (08:33)
[2017-10-29] MEDS: FLONASE NAS SCH (08:33)
[2017-10-29] MEDS: LEXAPRO PO SCH (08:34)
[2017-10-29] MEDS: NEURONTIN PO SCH ×3 (08:34→20:39)
[2017-10-29] MEDS: LIPITOR PO SCH (08:34)
[2017-10-29] MEDS: ZESTRIL PO SCH (08:36)
[2017-10-29] MEDS: PHENERGAN WITH CODEINE 6.25/10 MG/5 ML PO PRN ×2 (10:43→21:39)
--- NOTE | 2017-10-29 13:43 | DI ---
EXAM: Two views of the chest. History: Cough, congestion and wheezing Comparison: Chest radiograph 10/25/2017 Findings: Heart size is within normal limits. Resolved right midlung infiltrate. No developing aster g opacities. No appreciable pleural fluid and no pneumothorax. No acute osseous abnormalities. Impression: No acute cardiopulmonary process
[2017-10-29] MEDS: ROCEPHIN 1 GM in SODIUM CHLORIDE 50 ML IV SCH (20:38)
[2017-10-29] MEDS: LOVENOX SUBCUT SCH (20:39)
[2017-10-30 05:18] VITALS: BP 93/59; TEMP 97.8
[2017-10-30] MEDS: ALBUTEROL 0.083% NEB NEB SCH ×2 (05:40→10:07)
[2017-10-30] MEDS: ZANTAC PO SCH (05:51)
[2017-10-30] MEDS: NORCO 5-325 PO SCH (05:52)
[2017-10-30] MEDS: LEVAQUIN 500 MG in PREMIX 100 ML D5W 1 BAG IV SCH (09:09)
[2017-10-30] MEDS: NEURONTIN PO SCH (09:10)
[2017-10-30] MEDS: FLONASE NAS SCH (09:10)
[2017-10-30] MEDS: FERROUS SULFATE PO SCH (09:10)
[2017-10-30] MEDS: FLEXERIL PO SCH (09:10)
[2017-10-30] MEDS: LIPITOR PO SCH (09:10)
[2017-10-30] MEDS: LEXAPRO PO SCH (09:10)
[2017-10-30] MEDS: ZESTRIL PO SCH (09:10)
--- NOTE | 2017-11-02 10:21 | PN ---
DATE OF SERVICE: 07/26/18 SUBJECTIVE: The patient is still coughing and congestion. Admitted for the community acquired pneumonia. Leg leg wound is looking better with no drainage at this time. REVIEW OF SYSTEMS: CONSTITUTIONAL: No fever, no chills. HEENT: Normal. ENDOCRINE: No weight gain, no weight loss. CVS: No angina symptoms. No CHF symptoms. No palpitations. No atypical chest pain for CAD. No shortness of breath. No PND, no orthopnea. RESPIRATORY: No cough, no hemoptysis. GI: No nausea, no vomiting. No abdominal pain. : No hematuria. No polyuria. MUSCULOSKELETAL: No joint swelling. PSYCHIATRIC: Not anxious. No depression. No suicidal thoughts. No homicidal thoughts. SKIN: Intact. No rash. PHYSICAL EXAMINATION: V/S: Blood pressure 113/77, respiratory rate 20, heart rate 97, temperature 98.4 with saturation 95%. HEENT: Normocephalic, atraumatic. Mucosa dry. Pallor positive. no icterus. NECK: Supple. No JVD, no carotid bruit. No lymphadenopathy. LUNGS: Decreased and basilar crackles. Clear to auscultation. No rales or rhonchi. HEART: S1, S2 normal. No S3. No murmur, gallop or regurgitation. ABDOMEN: Soft, nontender. Bowel sounds active. No rigidity. No rebound or guarding. No CVA tenderness. EXTREMITIES: No pedal edema. No clubbing or cyanosis Leg foot wound is covered with bandage MUSCULOSKELETAL: No joint swelling. NEUROLOGIC: Awake, alert, oriented times three. No focal deficit. LYMPHATIC: No lymph nodes palpable. SKIN: Intact. LABS: WBC 6.0, hgb 11.4, hct 35.4, plt count 259 TIME SPENT: More than 35 minutes MTDD
--- NOTE | 2017-11-02 10:49 | PN ---
DATE OF SERVICE: 10/27/17 SUBJECTIVE: The patient was admitted with community acquired pneumonia. Still coughing and complaining that the coughing is disturbing her and she is producing some yellow to clear phlegm. Wanting some cough medication. REVIEW OF SYSTEMS: CONSTITUTIONAL: No fever, no chills. HEENT: Normal. ENDOCRINE: No weight gain, no weight loss. CVS: No angina symptoms. No CHF symptoms. No palpitations. No atypical chest pain for CAD. No shortness of breath. No PND, no orthopnea. RESPIRATORY: No cough, no hemoptysis. GI: No nausea, no vomiting. No abdominal pain. : No hematuria. No polyuria. MUSCULOSKELETAL: No joint swelling. PSYCHIATRIC: Not anxious. No depression. No suicidal thoughts. No homicidal thoughts. SKIN: Intact. No rash. PHYSICAL EXAMINATION: V/S: Blood pressure 120/77, respiratory rate 16, heart rate 105, temperature 99.8 with saturation 95% on 2 liters. HEENT: Normocephalic, atraumatic. Mucosa dry. Pallor positive. No icterus. NECK: Supple. No JVD, no carotid bruit. No lymphadenopathy. LUNGS: Decreased with basilar crackles. No rales or rhonchi. HEART: S1, S2 normal. No S3. No murmur, gallop or regurgitation. ABDOMEN: Soft, nontender. Bowel sounds active. No rigidity. No rebound or guarding. No CVA tenderness. EXTREMITIES: No pedal edema. No clubbing or cyanosis. Left foot wound is healing and healthy. MUSCULOSKELETAL: No joint swelling. NEUROLOGIC: Awake, alert, oriented times three. No focal deficit. LYMPHATIC: No lymph nodes palpable. SKIN: Intact. LABS: WBC 6.0, hgb 11.4, hct 35.5, plt count 259, sodium 143, potassium 3.6, chloride 103, bicarb 20, BUN 10 and creatinine 0.99. ASSESSMENT: 1. Community acquired pneumonia 2. Left foot chronic wound 3. Hypertension 4. Dyslipidemia 5. Depression 6. Anxiety PLAN: 1. Continue the Rocephin 2. DUO NEBS 3. Phenergan with codeine 4. Out of bed to chair activity as tolerated. TIME SPENT: More than 35 minutes MTDD
--- NOTE | 2017-11-02 10:55 | PN ---
DATE OF SERVICE: 10/28/17 SUBJECTIVE: The patient still coughing and congestion and not able to sleep. No fever or chills. Getting yellow to green phlegm. Left foot wound is dry with no oozing, swelling or pain. REVIEW OF SYSTEMS: CONSTITUTIONAL: No fever, no chills. HEENT: Normal. ENDOCRINE: No weight gain, no weight loss. CVS: No angina symptoms. No CHF symptoms. No palpitations. No atypical chest pain for CAD. No shortness of breath. No PND, no orthopnea. RESPIRATORY: No cough, no hemoptysis. GI: No nausea, no vomiting. No abdominal pain. : No hematuria. No polyuria. MUSCULOSKELETAL: No joint swelling. PSYCHIATRIC: Not anxious. No depression. No suicidal thoughts. No homicidal thoughts. SKIN: Intact. No rash. PHYSICAL EXAMINATION: V/S: Blood pressure 95/60, respiratory rate 20, heart rate 90, temperature 97.9 with saturation 100%. HEENT: Normocephalic, atraumatic. Mucosa dry. Pallor positive. No icterus. NECK: Supple. No JVD, no carotid bruit. No lymphadenopathy. LUNGS: Decreased and basilar crackles. No rales or rhonchi. HEART: S1, S2 normal. No S3. No murmur, gallop or regurgitation. ABDOMEN: Soft, nontender. Bowel sounds active. No rigidity. No rebound or guarding. No CVA tenderness. EXTREMITIES: No pedal edema. No clubbing or cyanosis. Left foot wound healthy granulation tissue. Some tenderness present. No redness. MUSCULOSKELETAL: No joint swelling. NEUROLOGIC: Awake, alert, oriented times three. No focal deficit. LYMPHATIC: No lymph nodes palpable. SKIN: Intact. LABS: WBC 6.36, hgb 10.98, hct 33.9, plt count 228, sodium 139, potassium 3.7, chloride 102, bicarb 26, BUN 16, creatinine 1.13 ASSESSMENT: 1. Community acquired pneumonia 2. Left foot chronic wound which is getting better 3. Depression 4. Anxiety 5. Osteoarthritis 6. DJD spine PLAN: 1. Continue the Rocephin and Levofloxacin 2. Phenergan with codeine. 3. Lovenox for the DVT prophylaxis 4. Will get chest x-ray in the morning TIME SPENT: More than 35 minutes MTDD
--- NOTE | 2017-11-02 11:00 | PN ---
DATE OF SERVICE: 10/29/17 SUBJECTIVE: The patient was admitted with community acquired pneumonia. Getting IV antibiotics and breathing treatments and is feeling better. Left foot wound did not grow any culture and almost closing up in the open wound. Coughing and congestion is better. REVIEW OF SYSTEMS: CONSTITUTIONAL: No fever, no chills. HEENT: Normal. ENDOCRINE: No weight gain, no weight loss. CVS: No angina symptoms. No CHF symptoms. No palpitations. No atypical chest pain for CAD. No shortness of breath. No PND, no orthopnea. RESPIRATORY: No cough, no hemoptysis. GI: No nausea, no vomiting. No abdominal pain. : No hematuria. No polyuria. MUSCULOSKELETAL: No joint swelling. PSYCHIATRIC: Not anxious. No depression. No suicidal thoughts. No homicidal thoughts. SKIN: Intact. No rash. PHYSICAL EXAMINATION: V/S: Blood pressure 110/68, respiratory rate 20, heart rate 90, temperature 98.5 with saturation 95%. HEENT: Normocephalic, atraumatic. Mucosa dry. NECK: Supple. No JVD, no carotid bruit. No lymphadenopathy. LUNGS: Decreased and clear to auscultation. No rales or rhonchi. HEART: S1, S2 normal. No S3. No murmur, gallop or regurgitation. ABDOMEN: Soft, nontender. Bowel sounds active. No rigidity. No rebound or guarding. No CVA tenderness. EXTREMITIES: No pedal edema. No clubbing or cyanosis MUSCULOSKELETAL: No joint swelling. NEUROLOGIC: Awake, alert, oriented times three. No focal deficit. LYMPHATIC: No lymph nodes palpable. SKIN: Intact. LABS: Sodium 139, potassium 4.0, chloride 106, bicarb 26, BUN 31m, creatinine 1.27, WBC 5.64, hgb 10.6, hct 32.8, plt count 227. ASSESSMENT: 1. Community acquired pneumonia 2. Left leg wound which is getting better 3. Anemia 4. Osteoarthritis 5. DJD spine 6. Depression PLAN: 1. Continue the Rocephin 2. Levaquin 3. DUO NEBS 4. Will get Chest x-ray TIME SPENT: More than 35 minutes MTDD
--- NOTE | 2017-11-02 11:21 | DS ---
DATE OF SERVICE: 10/30/17 FINAL DIAGNOSIS: 1. Community acquired pneumonia right upper lobe 2. Left foot chronic wound which is healing better 3. Depression 4. Anxiety 5. Osteoarthritis 6. DJD spine 7. Left side small kidney DISCHARGE INSTRUCTIONS: Discharge the patient home. Continue the rest of the home medications. MEDICATIONS AT DISCHARGE: Lipitor 20mg PO daily Cyclobenzaprine 5mg PO twice a day Lexapro 20mg PO daily Ferrous sulfate Neurontin Lisinopril NEW PRESCRIPTIONS: Phenergan and Codeine Omnicef 300mg twice a day for 5 days Prednisone 10mg twice a day for 5 days. DIET INSTRUCTIONS: Cardiac and healthy ACTIVITY: As much as tolerated SMOKING: Former smoker DISEASE SPECIFIC EDUCATION: COPD Pneumonia Need for pneumonia vaccination been discussed Antibiotics use and diarrhea, C-Diff diarrhea been discussed. HOSPITAL COURSE: Gissel Calzada came to the emergency room with cough and congestion and shortness of breath. The patient was seen by the ER physician. Chest x-ray showed the right upper lobe pneumonia. WBC was normal but hgb 11.4. Chemistry was normal. Toxicology screen was negative. Serology was negative. At that time as patient was failure as outpatient treatment she was admitted to the hospital for the IV antibiotics Rocephin and Azithromycin. Albuterol breathing treatments were given. Levaquin and Rocephin IV antibiotics. Phenergan Codeine, Lovenox for the DVT prophylaxis were given. Left foot wound gets the wet to dry dressing. With the given treatment gradually started feeling better up and about. The patient constantly had a cough and so Phenergan and Codeine was continued. Repeat chest x-ray was done yesterday which was normal. As patient is better the patient is being discharged home. The patient has two times failure treatment and was not able to buy the medications because of the social economic issues. TIME SPENT: MORE THAN 65 MINUTES MTDD
== END 2017-10-30 11:05 | disposition home or self-care (01) | DRG 194 ==
LOC: ED 10:22 → MEDSURG B 16:48
PROVIDERS: ADMIT Emergency Medicine; ATTEND Emergency Medicine
DX: J18.9 Pneumonia, unspecified organism (principal); L02.612 Cutaneous abscess of left foot; R11.2 Nausea with vomiting, unspecified; R06.02 Shortness of breath; I10 Essential (primary) hypertension; D64.9 Anemia, unspecified; E78.5 Hyperlipidemia, unspecified; F41.8 Other specified anxiety disorders; M19.90 Unspecified osteoarthritis, unspecified site; M47.9 Spondylosis, unspecified; N27.0 Small kidney, unilateral; Z79.899 Other long term (current) drug therapy
CPT/HCPCS: 36415; 80053; 80306; 80307; 81001; 85007; 85025; 87040; 87070; 87502; 87651; 93005; 93010; 94640; 99284

== ENCOUNTER 2017-11-08 16:12 | Outpatient (CLI) ==
[2017-11-03 10:05] VITALS: BMI 25.9
== END 2017-11-08 16:13 | disposition home or self-care (01) ==
LOC: LAB 16:12
PROVIDERS: ATTEND Emergency Medicine
DX: I10 Essential (primary) hypertension (principal); T78.40XA Allergy, unspecified, initial encounter
CPT/HCPCS: 36415; 85025

== ENCOUNTER 2017-11-10 10:05 | Emergency (ER) ==
[2017-11-10 10:13] VITALS: BP 160/94; TEMP 98.6; BMI 27.4
--- NOTE | 2017-11-10 11:15 | ED.PDOC ---
General ED Provider: Dr. RUBY CARLOS Chief Complaint: Fall Stated Complaint: Rt Hip, Pelvic and Rt ankle Pain. Fell at home last evening. Observed to be ambulating in department to Bathroom Time Seen by Physician: 10:30 Mode of Arrival: Walk-In Information Source: Patient Primary [facility] and Triage Documentation Reviewed and Agree: Yes Reviewed sepsis parameters & appropriate labs ordered?: Yes System Inflammatory Response Syndrome: Not Applicable Sepsis Protocol: For patient's 13 years and over: Temp is 96.8 and below OR 101 and greater Pulse >90 BPM Resp >20/minute Acutely Altered Mental Status Are patient's symptoms suggestive of a new infection, such as: -Pneumonia -Skin, Soft Tissue -Endocarditis -UTI -Bone, Joint Infection -Implantable Device -Acute Abdominal Infection -Wound Infection -Meningitis -Blood Stream Catheter Infection -Unknown System Inflammatory Response Syndrome: Not Applicable Musculoskeletal Complaint Exam - Lower Extremity Complaint/Exam Location of Pain: Reports: Right Mechanism of Injury: Reports: Trauma Symptoms Are: Still present Onset of Pain: Reports: Immediate Initial Severity: Moderate Current Severity: Mild Location: Reports: Discrete Character: Reports: Dull, Aching Alleviating: Reports: Rest, Position Aggravating: Reports: Movement, Weight bearing Able to Bear Weight: Yes (Observed ambulate ) Associated Signs and Symptoms: Denies: Swelling, Redness, Bruising, Fever, Weakness, Numbness, Tingling Related History: Denies: Similar episode DVT Risk Factors: Reports: None Septic Arthritis Risk Factors: Reports: None Related Surgical History: Reports: None Lower Extremity Findings: Present: Swelling NV Bundle Intact Distal to Injury: Yes Compartment Syndrome Risk Factors: Present: Pain. Absent: Paralysis, Pallor, Pulselessness, Paresthesias April's Sign Present: No Differential Diagnoses: Contusion, Strain Review of Systems - Review Of Systems Constitutional: Reports: No symptoms Eyes: Reports: No symptoms Ears, Nose, Mouth, Throat: Reports: No symptoms Respiratory: Reports: No symptoms Cardiac: Reports: No symptoms GI: Reports: No symptoms : Reports: No symptoms Musculoskeletal: Reports: Joint pain, Muscle pain, Muscle stiffness Skin: Reports: No symptoms Neurological: Reports: No symptoms Endocrine: Reports: No symptoms Hematologic/Lymphatic: Reports: No symptoms All Other Systems: Reviewed and Negative Past Medical History - Past Medical History Previously Healthy: Yes Endocrine: Reports: None Cardiovascular: Reports: Hypertension Respiratory: Reports: None Hematological: Reports: None Gastrointestinal: Reports: GERD Genitourinary: Reports: None Neuro/Psych: Reports: Anxiety, Depression Musculoskeletal: Reports: Arthritis, Joint Pain, Other (foot infection ) Cancer: Reports: None Last Menstrual Period: menopause Other Pertinent Past Medical History: Osteoporosis - Surgical History General Surgical History: Reports: Tubal ligation, Orthopedic ( CARPAL TUNNEL) - Family History Family History: Reports: Unknown - Social History Smoking Status: Former smoker Hx Substance Use: No Alcohol Screening: None - Immunizations Influenza Vaccine within 12 Months: No Pneumococcal Vaccine up to Date: No Physical Exam - Physical Exam Appearance: Well-appearing Ill-appearing: None Pain Distress: Mild Eyes: HECTOR, EOMI, Conjunctiva clear ENT: Ears normal, Nose normal, Oropharynx normal Neck: Supple Respiratory: Airway patent, Breath sounds clear, Breath sounds equal Cardiovascular: RRR, Pulses normal, No rub, No murmur GI/: Soft, Nontender, No masses, Bowel sounds normal Musculoskeletal: Normal strength, ROM intact (Rt lat hip tender with discomfort to int /ext rotation without crepitance/Rt ankle tender, guarding to exam but relaxes and allows exam with full ROM and no localized findings), No edema Skin: Warm, Dry Critical Care Note - Critical Care Note Total Time (mins): 0 Course - Course Orders, Labs, Meds: Orders Category Date Time Status ANKLE, RIGHT MIN 3 VIEWS Stat RADS 11/10/17 11:[address] PELVIS W/O CONTRAST Stat RADS 11/10/17 11:13 Completed Vital Signs: Temp Pulse Resp BP Pulse Ox 11/10/17 10:06 98.6 F 79 16 160/94 H 98 Departure - Departure Time of Disposition: 12:45 Disposition: HOME SELF-CARE Discharge Problem: Contusion, hip and thigh, Ankle strain Instructions: Hip Contusion (ED), Ankle Strain (ED) Condition: Good Pt referred to PMD for follow-up: Yes (PCP in 1 week) IPMP verified?: No Allergies/Adverse Reactions: Allergies doxycycline Allergy (Mild, Verified 11/10/17 10:15) sick to stomach wheat Allergy (Mild, Verified 11/10/17 10:15) n/v clindamycin Adverse Reaction (Verified 11/10/17 10:15) naproxen Adverse Reaction (Verified 11/10/17 10:15) Penicillins Adverse Reaction (Verified 11/10/17 10:15) Nancy Adverse Reaction (Uncoded 11/03/17 10:05) Home Medications: Ambulatory Orders Acetaminophen [Tylenol] 500 mg PO Q6H PRN #30 tablet 06/23/16 Disposition Discussed With: Patient
--- NOTE | 2017-11-10 12:13 | CT ---
EXAM: CT of the pelvis without contrast History: Pelvic trauma. Technique: Multiplanar CT images through the pelvis were obtained. Color duplex Doppler was used to interrogate vascular flow. Findings: Small fat-containing umbilical hernia. No bladder wall thickening. No acute fracture or dislocation. Severe end-stage degenerative changes of the right hip joint with subchondral sclerosis, subchondral cysts and osteophyte formation. Left hip joint is intact. Bilate ral sacroiliac joints are intact. Surrounding soft tissues demonstrate no acute findings. Impression: 1. No acute osseous abnormality. 2. Severe osteoarthritis of the right hip joint.
--- NOTE | 2017-11-10 13:01 | DI ---
EXAM: Three-view right ankle COMPARISON: None HISTORY: Trauma and pain FINDINGS: There is no acute fracture or dislocation. Alignment is anatomic. Joint spaces are well p reserved. There are calcaneal plantar Achilles spurs. There is no soft tissue swelling. No unexpecte d radio-opaque foreign bodies. The ankle mortise is preserved. IMPRESSION: No acute osseous abnormality.
== END 2017-11-10 13:20 | disposition home or self-care (01) ==
LOC: ED 10:05
DX: S70.00XA Contusion of unspecified hip, initial encounter (principal); S70.10XA Contusion of unspecified thigh, initial encounter; S96.911A Strain of unspecified muscle and tendon at ankle and foot level, right foot, initial encounter; W19.XXXA Unspecified fall, initial encounter
CPT/HCPCS: 99282

== ENCOUNTER 2017-11-30 10:52 | Outpatient (CLI) ==
--- NOTE | 2017-11-30 11:45 | DI ---
Exam: Two x-rays of the thoracolumbar spine. Comparison: Lumbar spine x-rays performed 07/19/2017. Reason for exam: Dorsalgia. FINDINGS: No acute vertebral body height loss is seen. There is multilevel degenerative disease wit h intervertebral body disc space height narrowing and osteophyte formation. There is a normal appear ing lumbar lordotic and thoracic kyphotic curve. There is mild levoscoliosis of the lumbar spine. Impression: 1. No acute fracture or listhesis in the thoracolumbar spine. 2. Multilevel degenerative disease with intervertebral body disc space height narrowing and osteophy te formation
--- NOTE | 2017-11-30 11:49 | DI ---
EXAM: Radiographs, right tibia and fibula HISTORY: Right leg pain. COMPARISON: None available. TECHNIQUE: Two views. FINDINGS: Bone mineralization is decreased. There is no fracture or dislocation. The joint spaces are maintained. Calcaneal spurs are present, larger at the Achilles tendon insertion. No focal soft tissue abnormality is seen. IMPRESSION: No acute abnormality of the right tibia or fibula.
== END 2017-11-30 10:53 | disposition home or self-care (01) ==
LOC: RAD 10:52
PROVIDERS: ATTEND Emergency Medicine
DX: M54.6 Pain in thoracic spine (principal); M79.604 Pain in right leg

== ENCOUNTER 2017-12-05 09:17 | Outpatient (CLI) | END 2017-12-05 09:18 | disposition home or self-care (01) | LOC: WOUND 09:17 | PROVIDERS: ATTEND Nurse Practitioner Family | DX: T81.89XA Other complications of procedures, not elsewhere classified, initial encounter (principal); I10 Essential (primary) hypertension; F06.4 Anxiety disorder due to known physiological condition; F33.9 Major depressive disorder, recurrent, unspecified ==

== ENCOUNTER 2017-12-19 19:51 | Emergency (ER) ==
[2017-12-19 20:01] VITALS: BP 122/85; TEMP 97.5; BMI 26.4
--- NOTE | 2017-12-19 20:06 | ED.PDOC ---
General ED Provider: Dr. JULIO PETIT Chief Complaint: Foot Pain/Injury Stated Complaint: Pain across top of foot and around to heal. No known injury Time Seen by Physician: 20:03 Mode of Arrival: Wheelchair Information Source: Patient Exam Limitations: No limitations [facility] and Triage Documentation Reviewed and Agree: Yes Reviewed sepsis parameters & appropriate labs ordered?: No System Inflammatory Response Syndrome: Not Applicable Sepsis Protocol: For patient's 13 years and over: Temp is 96.8 and below OR 101 and greater Pulse >90 BPM Resp >20/minute Acutely Altered Mental Status Are patient's symptoms suggestive of a new infection, such as: -Pneumonia -Skin, Soft Tissue -Endocarditis -UTI -Bone, Joint Infection -Implantable Device -Acute Abdominal Infection -Wound Infection -Meningitis -Blood Stream Catheter Infection -Unknown System Inflammatory Response Syndrome: Not Applicable Musculoskeletal Complaint Exam - Lower Extremity Complaint/Exam Location of Pain: Reports: Right, Ankle ( and Heel ) Mechanism of Injury: Reports: No known trauma Onset/Duration: 2 days Symptoms Are: Still present Onset of Pain: Reports: Immediate Initial Severity: Moderate Current Severity: Severe Location: Reports: Discrete (Heel area. ) Character: Reports: Aching, Throbbing Alleviating: Reports: None Aggravating: Reports: Movement, Weight bearing Able to Bear Weight: Yes Related History: Denies: Similar episode, Occupational injury DVT Risk Factors: Reports: None Septic Arthritis Risk Factors: Reports: None Related Surgical History: Reports: None Lower Extremity Findings: Present: Tenderness (left Heel), Limited range of motion. Absent: Swelling, Ecchymosis, Abnormal contour, Rotation, Ligamentous instability, Laceration, Erythema, Warmth, Blisters, Other joint pain, Foreign body April's Sign Present: No Differential Diagnoses: Arthritis, Fracture, Strain, Sprain Review of Systems - Review Of Systems Constitutional: Reports: No symptoms Eyes: Reports: No symptoms Ears, Nose, Mouth, Throat: Reports: No symptoms Respiratory: Reports: No symptoms Cardiac: Reports: No symptoms GI: Reports: No symptoms : Reports: No symptoms Musculoskeletal: Reports: Joint pain (right foot and heel) Skin: Reports: No symptoms Neurological: Reports: Anxiety, Depressed Endocrine: Reports: No symptoms Hematologic/Lymphatic: Reports: No symptoms All Other Systems: Reviewed and Negative Past Medical History - Past Medical History Previously Healthy: Yes Endocrine: Reports: None Cardiovascular: Reports: Hypertension Respiratory: Reports: None Hematological: Reports: None Gastrointestinal: Reports: GERD Genitourinary: Reports: None Neuro/Psych: Reports: Anxiety, Depression Musculoskeletal: Reports: Arthritis, Joint Pain, Other (foot infection ) Cancer: Reports: None Last Menstrual Period: na Other Pertinent Past Medical History: Osteoporosis - Surgical History General Surgical History: Reports: Tubal ligation, Orthopedic ( CARPAL TUNNEL, Left foot surgery ) - Family History Family History: Reports: Unknown - Social History Smoking Status: Former smoker Hx Substance Use: No Alcohol Screening: None - Immunizations Tetanus Shot up to Date: Yes Influenza Vaccine within 12 Months: No Pneumococcal Vaccine up to Date: No Physical Exam - Physical Exam Appearance: Ill-appearing, Well-nourished Ill-appearing: Mild Pain Distress: Severe Eyes: HECTOR, EOMI, Conjunctiva clear ENT: Ears normal, Nose normal, Oropharynx normal Respiratory: Airway patent, Breath sounds clear, Breath sounds equal, Respirations nonlabored Cardiovascular: RRR, Pulses normal, No rub, No murmur GI/: Soft, Nontender, No masses, Bowel sounds normal, No Organomegaly Musculoskeletal: Limited ROM Skin: Warm, Dry, Normal color Neurological: Sensation intact, Motor intact, Reflexes intact, Cranial nerves intact, Alert, Oriented Psychiatric: Anxious Interpretation - Radiology Interpretation Radiology Interpretation By: ED Physician Radiology Results: Positive Exam Interpreted: Other (Planter enthesiopathy.) Critical Care Note - Critical Care Note Total Time (mins): 0 Course - Course Orders, Labs, Meds: Orders Category Date Time Status Morphine Sulfate [Morphine 2 mg/ml Syringe] MEDS 12/19/17 20:47 Discontinued 2 mg IM ONCE STA FOOT, RIGHT 3 VIEWS Stat RADS 12/19/17 20:05 Completed HEEL, RIGHT (CALCANEUS) Stat RADS 12/19/17 20:05 Completed Medications Discontinued Medications Generic Name Dose Route Start Last Admin Trade Name Freq PRN Reason Stop Dose Admin Morphine Sulfate 2 mg 12/19/17 20:47 12/19/17 20:58 Morphine 2 Mg/Ml Syringe IM 12/19/17 20:48 2 mg ONCE STA Administration Vital Signs: Temp Pulse Resp BP Pulse Ox 12/19/17 19:52 97.5 F L 80 24 122/85 98 Departure - Departure Time of Disposition: 20:38 Disposition: HOME SELF-CARE Discharge Problem: Enthesopathy of ankle Instructions: Arthralgia (ED) Condition: Stable Pt referred to PMD for follow-up: Yes IPMP verified?: Yes (Last [place] prescribed was in Nov for 6 days ) Additional Instructions: Rest foot. Follow up with PCP for podiatry referral Take medications as prescribed. Prescriptions: Hydrocodone/Acetaminophen [[place] 5-325 Tablet] 1 tab PO Q6HR PRN #12 tablet PRN Reason: PAIN Allergies/Adverse Reactions: Allergies doxycycline Allergy (Mild, Verified 12/19/17 20:02) sick to stomach tramadol Allergy (Mild, Verified 12/19/17 20:02) nausea Patient to notify drugstore wheat Allergy (Mild, Verified 12/19/17 20:02) n/v clindamycin Adverse Reaction (Verified 12/19/17 20:02) naproxen Adverse Reaction (Verified 12/19/17 20:02) Penicillins Adverse Reaction (Verified 12/19/17 20:02) Sauerkraut Adverse Reaction (Uncoded 12/19/17 20:02) Home Medications: Ambulatory Orders Acetaminophen [Tylenol] 500 mg PO Q6H PRN #30 tablet 06/23/16 Gabapentin 300 mg PO TID 12/19/17 Hydrocodone/Acetaminophen [[place] 5-325 Tablet] 1 tab PO Q6HR PRN #12 tablet Cyclobenzaprine HCl [Flexeril] 5 mg PO BID #14 tablet 12/20/17 Prednisone 10 mg PO BIDWM #14 tablet 12/20/17 Disposition Discussed With: Patient
--- NOTE | 2017-12-19 20:36 | DI ---
EXAM: Right foot, three views. HISTORY: Right foot pain. COMPARISON: None. FINDINGS: AP, lateral and oblique views of the right foot. There are no acute or healing fractures. There are no lytic or blastic lesions. The soft tissues are normal. Bone mineralization is normal . There is a plantar spur and Achilles enthesiophyte. IMPRESSION: 1. No acute abnormalities. 2. Plantar enthesiopathy.
--- NOTE | 2017-12-19 20:36 | DI ---
EXAM: Right os calcis two views HISTORY: Pain COMPARISON: None. FINDINGS: There are moderate sized plantar and retrocalcaneal spurs There is no acute fracture. Bender rrounding soft tissues are unremarkable. IMPRESSION: Moderate sized retro and plantar calcaneal spurs
[2017-12-19] MEDS ORDERED: MORPHINE 2 MG/ML SYRINGE IM STA (20:47)
== END 2017-12-19 21:30 | disposition home or self-care (01) ==
LOC: ED 19:51
DX: M76.9 Unspecified enthesopathy, lower limb, excluding foot (principal)
CPT/HCPCS: 96372; 99282

== ENCOUNTER 2017-12-20 16:55 | Emergency (ER) ==
[2017-12-20 17:02] VITALS: BP 145/91; TEMP 98; BMI 26.8
[2017-12-20] MEDS ORDERED: TORADOL IM STA (21:31)
--- NOTE | 2017-12-20 21:34 | ED.PDOC ---
General ED Provider: Dr. JOYCE RANDOLPH Chief Complaint: Foot Pain/Injury Stated Complaint: Patient was here yesterday for the same pain, x ray negative for the fracture. says the pain medication not helping Time Seen by Physician: 21:32 Mode of Arrival: Wheelchair Information Source: Patient Primary Care Provider: JOYCE [facility]ANDOLPH[facility] Nursing and Triage Documentation Reviewed and Agree: Yes Reviewed sepsis parameters & appropriate labs ordered?: No System Inflammatory Response Syndrome: Not Applicable Sepsis Protocol: For patient's 13 years and over: Temp is 96.8 and below OR 101 and greater Pulse >90 BPM Resp >20/minute Acutely Altered Mental Status Are patient's symptoms suggestive of a new infection, such as: -Pneumonia -Skin, Soft Tissue -Endocarditis -UTI -Bone, Joint Infection -Implantable Device -Acute Abdominal Infection -Wound Infection -Meningitis -Blood Stream Catheter Infection -Unknown Musculoskeletal Complaint Exam - Ankle/Foot Complaint/Exam Location of Injury: Reports: Right Mechanism of Injury: Reports: No known trauma Symptoms Are: Reports: Still present Initial Severity: Moderate Current Severity: Moderate Location: Reports: Discrete Character: Reports: Aching Alleviating: Reports: None Aggravating: Reports: Movement, Weight bearing Able to Bear Weight: Yes Associated Signs and Symptoms: Denies: Swelling, Redness, Bruising, Fever, Weakness, Numbness, Tingling Related History: Reports: Similar episode Gout Risk Factors: Reports: None Related Surgical History: Reports: None Achilles Tendon Abnormality: No Tenderness: Present: Heel, Metatarsals Limited Range of Motion: Present: Inversion, Eversion Differential Diagnosis: Sprain, Bursitis Review of Systems - Review Of Systems Constitutional: Reports: No symptoms Eyes: Reports: No symptoms Ears, Nose, Mouth, Throat: Reports: No symptoms Respiratory: Reports: No symptoms Cardiac: Reports: No symptoms GI: Reports: No symptoms : Reports: No symptoms Musculoskeletal: Reports: Joint pain, Joint swelling Skin: Reports: No symptoms Neurological: Reports: No symptoms Endocrine: Reports: No symptoms Hematologic/Lymphatic: Reports: No symptoms All Other Systems: Reviewed and Negative Past Medical History - Past Medical History Previously Healthy: Yes Endocrine: Reports: None Cardiovascular: Reports: Hypertension Respiratory: Reports: None Hematological: Reports: None Gastrointestinal: Reports: GERD Genitourinary: Reports: None Neuro/Psych: Reports: Anxiety, Depression Musculoskeletal: Reports: Arthritis, Joint Pain, Other (foot infection ) Cancer: Reports: None Last Menstrual Period: unknown Other Pertinent Past Medical History: Osteoporosis - Surgical History General Surgical History: Reports: Tubal ligation, Orthopedic ( CARPAL TUNNEL, Left foot surgery ) - Family History Family History: Reports: Unknown - Social History Smoking Status: Former smoker Hx Substance Use: No Alcohol Screening: None - Immunizations Influenza Vaccine within 12 Months: No Pneumococcal Vaccine up to Date: No Physical Exam - Physical Exam Appearance: Well-appearing, Well-nourished Pain Distress: Moderate Eyes: HECTOR, EOMI, Conjunctiva clear ENT: Ears normal, Nose normal, Oropharynx normal Respiratory: Airway patent, Breath sounds clear, Breath sounds equal, Respirations nonlabored Cardiovascular: RRR, Pulses normal, No rub, No murmur GI/: Soft, Nontender, No masses, Bowel sounds normal, No Organomegaly Musculoskeletal: No edema, No calf tenderness, Limited ROM, Limited strength Skin: Warm, Dry, Normal color Neurological: Sensation intact, Motor intact, Reflexes intact, Cranial nerves intact, Alert, Oriented Psychiatric: Affect appropriate, Mood appropriate Critical Care Note - Critical Care Note Total Time (mins): 20 Course - Course Orders, Labs, Meds: Orders Category Date Time Status Ketorolac Tromethamine [Toradol] MEDS 12/20/17 21:31 Stat 60 mg IM ONCE STA Medications Generic Name Dose Route Start Last Admin Trade Name Frida PRN Reason Stop Dose Admin Ketorolac Tromethamine 60 mg 12/20/17 21:31 Toradol IM 12/20/17 21:32 ONCE STA Vital Signs: Temp Pulse Resp BP Pulse Ox 12/20/17 16:58 98.0 F 89 20 145/91 H 99 Departure - Departure Time of Disposition: 21:35 Disposition: HOME SELF-CARE Discharge Problem: Injury of foot Instructions: Arthralgia (ED) Condition: Stable Pt referred to PMD for follow-up: Yes IPMP verified?: No Additional Instructions: Rest Hot pack f/u in [facility] in 1 weeks Prescriptions: Cyclobenzaprine HCl [Flexeril] 5 mg PO BID #14 tablet Prednisone 10 mg PO BIDWM #14 tablet Allergies/Adverse Reactions: Allergies doxycycline Allergy (Mild, Verified 12/19/17 20:02) sick to stomach tramadol Allergy (Mild, Verified 12/19/17 20:02) nausea Patient to notify drugstore wheat Allergy (Mild, Verified 12/19/17 20:02) n/v clindamycin Adverse Reaction (Verified 12/19/17 20:02) naproxen Adverse Reaction (Verified 12/19/17 20:02) Penicillins Adverse Reaction (Verified 12/19/17 20:02) [place] Adverse Reaction (Uncoded 12/19/17 20:02) Home Medications: Ambulatory Orders Acetaminophen [Tylenol] 500 mg PO Q6H PRN #30 tablet 06/23/16 Gabapentin 300 mg PO TID 12/19/17 Hydrocodone/Acetaminophen [[place] 5-325 Tablet] 1 tab PO Q6HR PRN #12 tablet Cyclobenzaprine HCl [Flexeril] 5 mg PO BID #14 tablet 12/20/17 Prednisone 10 mg PO BIDWM #14 tablet 12/20/17 Disposition Discussed With: Patient, Family
== END 2017-12-20 21:57 | disposition home or self-care (01) ==
LOC: ED 16:55
DX: M79.671 Pain in right foot (principal)
CPT/HCPCS: 96372; 99282

== ENCOUNTER 2018-01-05 15:55 | Emergency (ER) ==
[2018-01-05 16:05] VITALS: BP 132/90; TEMP 99.4; BMI 25.7
--- NOTE | 2018-01-05 18:52 | ED.PDOC ---
General ED Provider: Dr. RUBY CARLOS Chief Complaint: Ankle Pain/Injury Stated Complaint: RT FOOT PAIN.FELL ON RT FOOT WHEN IT WENT UNDER HER.ACHING HER LEG. MADE HER FEEL NAUSEATED. Time Seen by Physician: 18:55 Mode of Arrival: Walk-In Information Source: Patient Exam Limitations: No limitations [facility] and T[facility] Documentation Reviewed and Agree: Yes Reviewed sepsis parameters & appropriate labs ordered?: No (N/I) System Inflammatory Response Syndrome: Not Applicable Sepsis Protocol: For patient's 13 years and over: Temp is 96.8 and below OR 101 and greater Pulse >90 BPM Resp >20/minute Acutely Altered Mental Status Are patient's symptoms suggestive of a new infection, such as: -Pneumonia -Skin, Soft Tissue -Endocarditis -UTI -Bone, Joint Infection -Implantable Device -Acute Abdominal Infection -Wound Infection -Meningitis -Blood Stream Catheter Infection -Unknown System Inflammatory Response Syndrome: Not Applicable Trauma/Injury Complaint Exam - Truncal Trauma Complaint/Exam Location of Pain: Reports: Right (FOOT AND ANKLE) Symptoms Are: Still present Onset of Pain: Reports: Immediate Initial Severity: Moderate Current Severity: Mild Mechanism: Reports: Direct blow, Twisted Aggravating: Reports: Movement Alleviating: Reports: Rest Associated Signs and Symptoms: Denies: Short of air, Chest pain, Cough, Hematuria, Abdominal pain, Fever, Nausea, Vomiting Related History: Denies: Similar episode Differential Diagnoses: Other (ANKLE STRAIN /FOOT STRAIN) Review of Systems - Review Of Systems Constitutional: Reports: No symptoms Eyes: Reports: No symptoms Ears, Nose, Mouth, Throat: Reports: No symptoms Respiratory: Reports: No symptoms Cardiac: Reports: No symptoms GI: Reports: No symptoms : Reports: No symptoms Musculoskeletal: Reports: No symptoms, Joint pain, Muscle pain Skin: Reports: No symptoms Neurological: Reports: No symptoms Endocrine: Reports: No symptoms Hematologic/Lymphatic: Reports: No symptoms All Other Systems: Reviewed and Negative Past Medical History - Past Medical History Previously Healthy: Yes Endocrine: Reports: None Cardiovascular: Reports: Hypertension Respiratory: Reports: None Hematological: Reports: None Gastrointestinal: Reports: GERD Genitourinary: Reports: None Neuro/Psych: Reports: Anxiety, Depression Musculoskeletal: Reports: Arthritis, Joint Pain, Other (foot infection ) Cancer: Reports: None Last Menstrual Period: na Other Pertinent Past Medical History: Osteoporosis - Surgical History General Surgical History: Reports: Tubal ligation, Orthopedic ( CARPAL TUNNEL, Left foot surgery ) - Family History Family History: Reports: Unknown - Social History Smoking Status: Former smoker Hx Substance Use: No Alcohol Screening: None - Immunizations Tetanus Shot up to Date: Yes Influenza Vaccine within 12 Months: No Pneumococcal Vaccine up to Date: No Physical Exam - Physical Exam Appearance: Well-appearing Ill-appearing: Mild Pain Distress: Mild Eyes: HECTOR, EOMI, Conjunctiva clear ENT: Ears normal, Nose normal, Oropharynx normal Respiratory: Airway patent, Breath sounds clear, Breath sounds equal, Respirations nonlabored Cardiovascular: RRR, Pulses normal, No rub, No murmur GI/: Soft, Nontender, No masses, Bowel sounds normal, No Organomegaly Musculoskeletal: Normal strength (MINIMAL DISCOMFORT TO PALPATION OF POSTERIOR ANKLE AND MOVEMENT OF RT FOOT. NO EDEMA, DEFORMITY OR DISCOLORATIOIN .), ROM intact, No edema, No calf tenderness Skin: Warm, Dry, Normal color Neurological: Sensation intact, Motor intact, Reflexes intact, Cranial nerves intact, Alert, Oriented Psychiatric: Affect appropriate, Mood appropriate Interpretation - Radiology Interpretation Radiology Interpretation By: ED Physician Radiology Results: No acute changes Exam Interpreted: Other (rt ankle and foot xrays) Critical Care Note - Critical Care Note Total Time (mins): 0 Course - Course Orders, Labs, Meds: Orders Category Date Time Status ANKLE, RIGHT MIN 3 VIEWS Stat RADS 01/05/18 18:56 Taken FOOT, RIGHT 3 VIEWS Stat RADS 01/05/18 18:55 Taken Vital Signs: Temp Pulse Resp BP Pulse Ox 01/05/18 15:56 99.4 F 101 H 16 132/90 97 Departure - Departure Time of Disposition: 20:10 Disposition: HOME SELF-CARE Discharge Problem: Right ankle strain, Right foot strain Instructions: Ankle Strain (ED), Foot Contusion (ED) Condition: Good Pt referred to PMD for follow-up: Yes (pcp) IPMP verified?: No Allergies/Adverse Reactions: Allergies doxycycline Allergy (Mild, Verified 01/05/18 16:07) sick to stomach tramadol Allergy (Mild, Verified 01/05/18 16:07) nausea Patient to notify drugstore wheat Allergy (Mild, Verified 01/05/18 16:07) n/v clindamycin Adverse Reaction (Verified 01/05/18 16:07) naproxen Adverse Reaction (Verified 01/05/18 16:07) Penicillins Adverse Reaction (Verified 01/05/18 16:07) [place] Adverse Reaction (Uncoded 12/19/17 20:02) Home Medications: Ambulatory Orders Acetaminophen [Tylenol] 500 mg PO Q6H PRN #30 tablet 06/23/16 Gabapentin 300 mg PO TID 12/19/17 Transfer Form Completed: No (NI) Disposition Discussed With: Patient
--- NOTE | 2018-01-06 08:48 | DI ---
EXAM: Three views of the right foot HISTORY: Injury COMPARISON: 12/19/2017 FINDINGS: No fracture or dislocation is identified. The joint spaces are maintained. There is a small plantar calcaneal and moderate to large distal Achilles insertion degenerative enthesophyte. IMPRESSION: No acute osseous abnormality. Calcaneal spurs.
--- NOTE | 2018-01-06 08:50 | DI ---
EXAM: Three views of the right ankle HISTORY: Pain after injury COMPARISON: 11/10/2017 FINDINGS: No fracture or dislocation is identified. The ankle mortise is symmetric. There is a small plantar calcaneal and moderate to large distal Achilles insertion degenerative enthesophyte. IMPRESSION: No acute osseous abnormality. Calcaneal spurs.
== END 2018-01-05 21:28 | disposition home or self-care (01) ==
LOC: ED 15:55
DX: S96.911A Strain of unspecified muscle and tendon at ankle and foot level, right foot, initial encounter (principal); W19.XXXA Unspecified fall, initial encounter
CPT/HCPCS: 99282

== ENCOUNTER 2018-01-30 12:04 | Emergency (ER) ==
[2018-01-30 12:08] VITALS: BP 153/105; TEMP 99.1; BMI 26.8
--- NOTE | 2018-01-30 13:32 | CT ---
EXAM: CT of the abdomen pelvis without contrast History: Abdominal pain. Comparison: CT abdomen pelvis 03/01/2017 Technique: Multiplanar CT images through the abdomen pelvis were obtained without the administration of IV contrast Findings: Lung bases are free of consolidation. No acute osseous abnormalities. Severe degenerate ch anges of the right hip joint again noted. No discrete gallstones identified by CT. No focal liver or splenic lesions. No peripancreatic infla mmation. Adrenal glands are unremarkable. No change in the right renal atrophy and left renal corti anitra scarring. No renal stones and no hydronephrosis. No bladder wall thickening. Bladder is mild t o moderately distended. Adnexal structures appear appropriate for patient's age. No free air and no ascites. No perirectal inflammation. Colonic diverticulosis. Minimal inflammation seen adjacent to the proximal sigmoid colon. The visualized appendix is not dilated or inflamed. Fluid filled nondi lated loops of small bowel and fluid seen within the right side of the colon. No bowel obstruction. Fluid seen in the distal esophagus and there is a suspected tiny hiatal hernia with mild distal esop hageal wall thickening. Impression: 1. Mild early acute diverticulitis of the proximal sigmoid colon. No free air. 2. Small hiatal hernia and mild thickening of the distal esophagus suggesting reflux esophagitis. 3. Right renal atrophy and left renal cortical scarring again noted. No hydronephrosis. 4. Severe osteoarthritis of the right hip joint again noted.
--- NOTE | 2018-01-30 13:42 | ED.PDOC ---
General ED Provider: Dr. CT MACK Chief Complaint: Nausea/Vomiting Stated Complaint: nausea, vomiting Time Seen by Physician: 12:10 (seen with rupal) Mode of Arrival: Walk-In Information Source: Patient Exam Limitations: No limitations Primary Care Provider: NEFTALI YARBROUGH Nursing and Triage Documentation Reviewed and Agree: Yes Reviewed sepsis parameters & appropriate labs ordered?: Yes System Inflammatory Response Syndrome: Not Applicable Sepsis Protocol: For patient's 13 years and over: Temp is 96.8 and below OR 101 and greater Pulse >90 BPM Resp >20/minute Acutely Altered Mental Status Are patient's symptoms suggestive of a new infection, such as: -Pneumonia -Skin, Soft Tissue -Endocarditis -UTI -Bone, Joint Infection -Implantable Device -Acute Abdominal Infection -Wound Infection -Meningitis -Blood Stream Catheter Infection -Unknown System Inflammatory Response Syndrome: Not Applicable GI Complaint Exam - Vomiting/Diarrhea Complaint/Exam Onset/Duration: 1 day Symptoms Are: Resolved Episodes of Vomiting over last 24 Hours: 4 Episodes of Diarrhea Over Last 24 Hours: 0 Initial Severity: Mild Current Severity: None Character of Vomiting: Reports: Non-bilious Aggravating: Reports: None Alleviating: Reports: None Associated Signs and Symptoms: Reports: Abdominal pain. Denies: Dizziness, Light-headedness, Melena, Hematemesis, Fever, Cramping Menses: Regular Non-GI Risk Factors: Reports: None Surgical Obstruction Risk Factors: Reports: None Related Surgical History: Reports: None Abdominal Findings: Present: None Differential Diagnoses: Viral Gastroenteritis Review of Systems - Review Of Systems Constitutional: Reports: No symptoms Eyes: Reports: No symptoms Ears, Nose, Mouth, Throat: Reports: Throat pain Respiratory: Reports: No symptoms Cardiac: Reports: No symptoms GI: Reports: Abdominal pain, Nausea, Vomiting : Reports: No symptoms Musculoskeletal: Reports: No symptoms Skin: Reports: No symptoms Neurological: Reports: No symptoms Endocrine: Reports: No symptoms Hematologic/Lymphatic: Reports: No symptoms All Other Systems: Reviewed and Negative Past Medical History - Past Medical History Previously Healthy: Yes Endocrine: Reports: None Cardiovascular: Reports: Hypertension Respiratory: Reports: None Hematological: Reports: None Gastrointestinal: Reports: GERD Genitourinary: Reports: None Neuro/Psych: Reports: Anxiety, Depression Musculoskeletal: Reports: Arthritis, Joint Pain, Other (foot infection ) Cancer: Reports: None Last Menstrual Period: none Other Pertinent Past Medical History: Osteoporosis - Surgical History General Surgical History: Reports: Tubal ligation, Orthopedic ( CARPAL TUNNEL, Left foot surgery ) - Family History Family History: Reports: Unknown - Social History Smoking Status: Former smoker Hx Substance Use: No Alcohol Screening: None - Immunizations Influenza Vaccine within 12 Months: No Pneumococcal Vaccine up to Date: No Physical Exam - Physical Exam Appearance: Well-appearing, No pain distress, Well-nourished Eyes: HECTOR, EOMI, Conjunctiva clear ENT: Ears normal, Nose normal, Erythema Respiratory: Airway patent, Breath sounds clear, Breath sounds equal, Respirations nonlabored Cardiovascular: RRR, Pulses normal, No rub, No murmur GI/: Soft, Nontender, No masses, Bowel sounds normal, No Organomegaly Musculoskeletal: Normal strength, ROM intact, No edema, No calf tenderness Skin: Warm, Dry, Normal color Neurological: Sensation intact, Motor intact, Reflexes intact, Cranial nerves intact, Alert, Oriented Psychiatric: Affect appropriate, Mood appropriate Interpretation - Radiology Interpretation Radiology Interpretation By: Radiologist Radiology Results: Positive (diverticulitis reflux esophagitis) Critical Care Note - Critical Care Note Total Time (mins): 0 Course - Course Hematology/Chemistry: 01/30/18 12:42 01/30/18 12:42 Orders, Labs, Meds: Lab Review 01/30/18 01/30/18 12:42 12:42 WBC 13.60 H RBC 3.71 L Hgb 11.4 L Hct 35.0 L MCV 94.3 MCH 30.7 MCHC 32.6 RDW Coeff of Michele 13.3 Plt Count 302 Immature Gran % (Auto) 0.4 Neut % (Auto) 76.0 Lymph % (Auto) 14.1 [place] % (Auto) 5.1 Eos % (Auto) 4.0 Baso % (Auto) 0.4 Immature Gran # (Auto) 0.1 Neut # (Auto) 10.4 H Lymph # (Auto) 1.9 [place] # (Auto) 0.7 Eos # (Auto) 0.5 Baso # (Auto) 0.1 Sodium 140 Potassium 4.2 Chloride 103 Carbon Dioxide 26 Anion Gap 15.2 BUN 26 H Creatinine 1.12 Estimated GFR (MDRD) 51.00 BUN/Creatinine Ratio 23.21 Glucose 107 Calcium 10.7 H Total Bilirubin 0.6 AST 14 L ALT 16 Alkaline Phosphatase 101 H Total Protein 6.7 Albumin 3.2 L Globulin 3.5 Albumin/Globulin Ratio 0.91 Orders Category Date Time Status CBC W/ AUTO DIFF Stat LAB 01/30/18 12:42 Completed COMPREHENSIVE METABOLIC PANEL Stat LAB 01/30/18 12:[address] ABDOMEN/PELVIS WO CONTRAST Stat RADS 01/30/18 12:59 Completed Vital Signs: Temp Pulse Resp BP Pulse Ox 01/30/18 12:04 99.1 F 98 H 18 153/105 H 96 Departure - Departure Time of Disposition: 13:41 Disposition: HOME SELF-CARE Discharge Problem: Nausea, Vomiting, Reflux esophagitis, Diverticulitis Instructions: Diverticulitis (ED), Esophagitis (ED), Gastroesophageal Reflux Disease in Infants (ED) Condition: Good Pt referred to PMD for follow-up: Yes IPMP verified?: No Additional Instructions: you would need a upper ENDOSCOPY, FAILURE TO DO SO CAN LEAD TO LATE OCCURING CANCER AND SEE YOUR DOCTOR AND TAKE YOUR HIGH LIGHTED CT REPORT WITH YOU .....Please call your Family Physician as soon as possible to schedule a follow-up appointment. Allergies/Adverse Reactions: Allergies doxycycline Allergy (Mild, Verified 01/30/18 12:09) sick to stomach tramadol Allergy (Mild, Verified 01/30/18 12:09) nausea Patient to notify drugstore wheat Allergy (Mild, Verified 01/30/18 12:09) n/v clindamycin Adverse Reaction (Verified 01/30/18 12:09) naproxen Adverse Reaction (Verified 01/30/18 12:09) Penicillins Adverse Reaction (Verified 01/30/18 12:09) [place] Adverse Reaction (Uncoded 12/19/17 20:02) Home Medications: Ambulatory Orders Acetaminophen [Tylenol] 500 mg PO Q6H PRN #30 tablet 06/23/16 Gabapentin 300 mg PO TID 12/19/17 Disposition Discussed With: Patient
[2018-01-30] MEDS ORDERED: LIDOCAINE HCL 1% SDV IM STA (13:51)
[2018-01-30] MEDS ORDERED: ROCEPHIN IM STA (13:51)
== END 2018-01-30 14:28 | disposition home or self-care (01) ==
LOC: ED 12:04
DX: R11.2 Nausea with vomiting, unspecified (principal); K57.92 Diverticulitis of intestine, part unspecified, without perforation or abscess without bleeding; K21.0 Gastro-esophageal reflux disease with esophagitis; I10 Essential (primary) hypertension
CPT/HCPCS: 36415; 80053; 85025; 96372; 99283

== ENCOUNTER 2018-02-27 12:17 | Emergency (ER) ==
[2018-02-27 12:24] VITALS: BP 133/93; TEMP 97.9; BMI 26.9
--- NOTE | 2018-02-27 12:28 | ED.PDOC ---
General ED Provider: Dr. CT MACK Chief Complaint: Fall Stated Complaint: Lower Back Pain Time Seen by Physician: 12:30 (SEEN WITH ADOLPH) Mode of Arrival: Walk-In Information Source: Patient Exam Limitations: No limitations Primary Care Provider: Jimmy Crowley Referred to ED by: Other Nursing and Triage Documentation Reviewed and Agree: Yes (NO NECK PAIN ) Reviewed sepsis parameters & appropriate labs ordered?: Yes (Not meeting septic parameters) System Inflammatory Response Syndrome: Not Applicable Sepsis Protocol: For patient's 13 years and over: Temp is 96.8 and below OR 101 and greater Pulse >90 BPM Resp >20/minute Acutely Altered Mental Status Are patient's symptoms suggestive of a new infection, such as: -Pneumonia -Skin, Soft Tissue -Endocarditis -UTI -Bone, Joint Infection -Implantable Device -Acute Abdominal Infection -Wound Infection -Meningitis -Blood Stream Catheter Infection -Unknown System Inflammatory Response Syndrome: Not Applicable Musculoskeletal Complaint Exam - Back Pain Complaint/Exam Mechanism of Injury: Reports: Trauma (ground level fall on her knees yesterday ) Onset/Duration: starting yesterday afte fall on her knees Symptoms Are: Still present Timing: Constant Episodes Lasting: Days Initial Severity: Moderate Current Severity: Moderate Location: Reports: Diffuse Character: Reports: Sharp Aggravating: Reports: Bending Alleviating: Reports: None, Position (bending over makes pain worse ) Associated Signs and Symptoms: Denies: Swelling, Redness, Bruising, Fever, Weakness, Numbness, Tingling, Abdominal pain, Flank pain, Bladder incontinence, Bowel incontinence, Weight loss, Pain with weight bearing Related History: Reports: Previous back injury TAD Risk Factors: Reports: Hypertension, Smoking AAA Risk Factors: Reports: Smoking, Hypertension, Atherosclerosis Cauda Equina Risk Factors: Reports: None Epidural Abcess Risk Factors: Reports: None Related Surgical History: Reports: None Focal Tenderness: No Paraspinal Muscle Tenderness: Yes (at sacral area ) Paraspinal Muscle Spasm: No Scoliosis: No Lordosis: No Kyphosis: No Review of Systems - Review Of Systems Constitutional: Reports: No symptoms Eyes: Reports: No symptoms Ears, Nose, Mouth, Throat: Reports: No symptoms Respiratory: Reports: No symptoms Cardiac: Reports: No symptoms GI: Reports: No symptoms : Reports: No symptoms Musculoskeletal: Reports: Back pain, Joint pain (hip pain) Skin: Reports: No symptoms Neurological: Reports: No symptoms Endocrine: Reports: No symptoms Hematologic/Lymphatic: Reports: No symptoms All Other Systems: Reviewed and Negative Past Medical History - Past Medical History Previously Healthy: Yes Endocrine: Reports: None Cardiovascular: Reports: Hypertension Respiratory: Reports: None Hematological: Reports: None Gastrointestinal: Reports: GERD Genitourinary: Reports: None Neuro/Psych: Reports: Anxiety, Depression Musculoskeletal: Reports: Arthritis, Joint Pain, Other (foot infection ) Cancer: Reports: None Last Menstrual Period: menopause Other Pertinent Past Medical History: Osteoporosis - Surgical History General Surgical History: Reports: Tubal ligation, Orthopedic ( CARPAL TUNNEL, Left foot surgery ) - Family History Family History: Reports: Unknown - Social History Smoking Status: Former smoker Hx Substance Use: No Alcohol Screening: None - Immunizations Influenza Vaccine within 12 Months: No Pneumococcal Vaccine up to Date: No Physical Exam - Physical Exam Appearance: Well-appearing, No pain distress, Well-nourished Eyes: HECTOR, EOMI, Conjunctiva clear ENT: Ears normal, Nose normal, Oropharynx normal Respiratory: Airway patent, Breath sounds clear, Breath sounds equal, Respirations nonlabored Cardiovascular: RRR, Pulses normal, No rub, No murmur GI/: Soft, Nontender, No masses, Bowel sounds normal, No Organomegaly Musculoskeletal: Normal strength, ROM intact, No edema, No calf tenderness Skin: Warm, Dry, Normal color Neurological: Sensation intact, Motor intact, Reflexes intact, Cranial nerves intact, Alert, Oriented Psychiatric: Affect appropriate, Mood appropriate Interpretation - Radiology Interpretation Radiology Interpretation By: Radiologist Radiology Results: No acute changes Critical Care Note - Critical Care Note Total Time (mins): 0 Course - Course Orders, Labs, Meds: Orders Category Date Time Status CT LUMBAR SPINE W/O CONTRAST Stat RADS 02/27/18 12:[address] PELVIS W/O CONTRAST Stat RADS 02/27/18 12:42 Completed Vital Signs: Temp Pulse Resp BP Pulse Ox 02/27/18 12:17 97.9 F 84 16 133/93 H 97 Departure - Departure Time of Disposition: 13:42 (seen pt with ADOLPH WILLAMS STUDENT CT REPORT AND COPY GIVEN TO THE PT ) Disposition: HOME SELF-CARE Discharge Problem: Low back pain Qualifiers: Chronicity: acute Back pain laterality: unspecified Sciatica presence: without sciatica Qualified Code(s): M54.5 - Low back pain Instructions: Acute Low Back Pain (ED), Lower Back Exercises (ED), Back Pain ( ED) Condition: Good Pt referred to PMD for follow-up: Yes IPMP verified?: No Additional Instructions: Please call your Family Physician as soon as possible to schedule a follow-up appointment. Allergies/Adverse Reactions: Allergies doxycycline Allergy (Mild, Verified 02/27/18 12:26) sick to stomach tramadol Allergy (Mild, Verified 02/27/18 12:26) nausea Patient to notify drugstore wheat Allergy (Mild, Verified 02/27/18 12:26) n/v clindamycin Adverse Reaction (Verified 02/27/18 12:26) naproxen Adverse Reaction (Verified 02/27/18 12:26) Penicillins Adverse Reaction (Verified 02/27/18 12:26) Opheliaaut Adverse Reaction (Uncoded 12/19/17 20:02) Home Medications: Ambulatory Orders Acetaminophen [Tylenol] 500 mg PO Q6H PRN #30 tablet 06/23/16 Gabapentin 300 mg PO TID 12/19/17
--- NOTE | 2018-02-27 13:27 | CT ---
EXAM: CT lumbar spine without contrast. HISTORY: Lower back pain post fall yesterday COMPARISON: Lumbar spine 07/19/2017 and 11/30/[address] x-rays [address] CT lumbar spine 10/31/2016 TECHNIQUE: Serial axial images of the spine were obtained from the lower thoracic spine through the pelvis without contrast. These were viewed in multiple planes. FINDINGS: Vertebral bodies demonstrate normal height, disc space and alignment. There is no acute c ompression fracture or subluxation. There is no lytic or blastic lesion. There are few anterior dis c osteophytes. There is mild facet arthropathy. L1-L2: Normal L2-L3: Normal L3-L4: Normal L4-L5: Small broad-based disc bulge with no central or neural foraminal narrowing. L5-S1: Broad-based disc bulge without central or neural foraminal narrowing. Limited views of the soft tissues are unchanged with atrophy of the right kidney and areas of atrophy on the left which are stable. IMPRESSION: 1. No acute compression fracture or subluxation. 2. Mild degenerative disease of the spine with no significant interval change. 3. Soft tissue changes of the kidneys are stable from prior exam.
--- NOTE | 2018-02-27 13:29 | CT ---
EXAM: CT of the pelvis without contrast History: Pelvic trauma. Comparison: CT lumbar spine 02/27/2018, CT abdomen pelvis 01/30/2018 Technique: Multiplanar CT images through the pelvis were obtained without the administration of IV c ontrast Findings: Colonic diverticulosis. No bladder wall thickening. Adnexal structures appear appropriate for patient's age. The visualized appendix is unremarkable. No acute fracture or dislocation. Severe narrowing of the right hip joint with marginal sclerosis, o steophyte formation and subchondral cysts. There is synovial thickening of the right hip and right h ip joint effusion. Impression: 1. No acute osseous abnormality. 2. Severe osteoarthritis of the right hip.
== END 2018-02-27 13:55 | disposition home or self-care (01) ==
LOC: ED 12:17
DX: M54.5 Low back pain (principal); W19.XXXA Unspecified fall, initial encounter
CPT/HCPCS: 99283

== ENCOUNTER 2018-03-15 16:06 | Observation (INO) ==
[2018-03-15] MEDS ORDERED: ZOFRAN 4 MG/2 ML IM STA (16:23)
[2018-03-15 16:26] VITALS: BMI 27.1
[2018-03-15] MEDS: SODIUM CHLORIDE 1,000 ML IV SCH (16:37)
[2018-03-15] MEDS ORDERED: PROTONIX IV IVP STA (16:38)
[2018-03-15] MEDS: LOVENOX SUBCUT SCH (16:46)
--- NOTE | 2018-03-15 17:19 | CT ---
EXAM: CT scan of the abdomen and pelvis without contrast HISTORY: Abdominal pain, vomiting TECHNIQUE: Helical imaging of the abdomen and pelvis was performed without contrast. 5 mm thin axia l images and coronal and sagittal reconstructions were provided for interpretation. Comparison 01/30/2018 CT scan of the abdomen and pelvis. FINDINGS: The liver, spleen, pancreas, adrenal glands appear normal. There is atrophy of the right kidney. Scarring of the left kidney is seen. The small and large bowel loops are normal caliber. Th e proximal ureters are normal size. There is no free air. No retroperitoneal abnormalities are seen . The helical images obtained through the pelvis demonstrate a normal appearance of the rectum, urinary bladder. There is no free fluid seen within the pelvis. The appendix appears normal. Diverticular disease of the sigmoid colon is identified without acute inflammation. Patchy opacities are seen wi thin the dependent right lung base. The left lung base appears clear. No lytic or blastic lesions a re seen within the osseous structures. IMPRESSION: There is no bowel obstruction or acute inflammatory change seen within the abdomen and p ailin. There is no ureteral obstruction. Stable appearance of atrophy of the right kidney and changes of scarring seen in the left kidney. Diverticular disease of the sigmoid colon without acute inflammation.
[2018-03-15] MEDS: CARAFATE PO SCH ×2 (17:29→21:52)
[2018-03-15] MEDS ORDERED: NON-FORMULARY MEDICATION (Ferrous Sulfate [Ferrous Sulfate] 325 MG) PO SCH (21:00)
[2018-03-15] MEDS: ASTELIN 0.1% NAS SCH (21:51)
[2018-03-15] MEDS: TYLENOL PO PRN (21:52)
[2018-03-15] MEDS: NEURONTIN PO SCH (21:53)
[2018-03-15] MEDS: FERROUS SULFATE PO SCH (21:53)
[2018-03-16] MEDS: SODIUM CHLORIDE 1,000 ML IV SCH ×2 (05:04→17:56)
[2018-03-16] MEDS: CARAFATE PO SCH ×4 (05:41→20:18)
[2018-03-16] MEDS ORDERED: ESCITALOPRAM OXALATE 10 MG PO SCH (09:00)
[2018-03-16] MEDS: ASTELIN 0.1% NAS SCH ×2 (09:10→20:18)
[2018-03-16] MEDS: FLONASE NAS SCH (09:10)
[2018-03-16] MEDS: LEXAPRO PO SCH (09:11)
[2018-03-16] MEDS: NEURONTIN PO SCH ×3 (09:12→20:18)
[2018-03-16] MEDS: LOVENOX SUBCUT SCH (09:12)
[2018-03-16] MEDS: ZESTRIL PO SCH (09:12)
[2018-03-16] MEDS: PROTONIX IV IVP SCH (09:13)
[2018-03-16] MEDS: FERROUS SULFATE PO SCH ×2 (09:13→20:18)
[2018-03-16] MEDS: TYLENOL PO PRN (09:17)
[2018-03-17 05:26] VITALS: BP 107/71; TEMP 98
[2018-03-17] MEDS: CARAFATE PO SCH (05:53)
[2018-03-17] MEDS: SODIUM CHLORIDE 1,000 ML IV SCH (08:03)
[2018-03-17] MEDS: PROTONIX IV IVP SCH (08:04)
[2018-03-17] MEDS: LOVENOX SUBCUT SCH (08:07)
[2018-03-17] MEDS: FERROUS SULFATE PO SCH (08:08)
[2018-03-17] MEDS: FLONASE NAS SCH (08:08)
[2018-03-17] MEDS: NEURONTIN PO SCH (08:08)
[2018-03-17] MEDS: ZESTRIL PO SCH (08:08)
[2018-03-17] MEDS: ASTELIN 0.1% NAS SCH (08:08)
[2018-03-17] MEDS: LEXAPRO PO SCH (08:08)
--- NOTE | 2018-03-18 15:49 | PN ---
DATE OF SERVICE: 03/16/18 SUBJECTIVE: The patient was admitted to the office yesterday for the acute nausea, vomiting and gastroenteritis. WBC was 21,000. CT abdomen and pelvis was negative. Started on the IV fluids and Zofran and NPO. By today morning the patient is feeling a lot better, was able to keep the liquid diet fine. Still having some abdominal discomfort otherwise. REVIEW OF SYSTEMS: CONSTITUTIONAL: No fever, no chills. HEENT: Normal. ENDOCRINE: No weight gain, no weight loss. CVS: No angina symptoms. No CHF symptoms. No palpitations. No atypical chest pain for CAD. No shortness of breath. No PND, no orthopnea. RESPIRATORY: No cough, no hemoptysis. GI: No nausea, no vomiting. Abdominal pain. : No hematuria. No polyuria. MUSCULOSKELETAL: No joint swelling. PSYCHIATRIC: Not anxious. No depression. No suicidal thoughts. No homicidal thoughts. SKIN: Intact. No rash. PHYSICAL EXAMINATION: V/S: Blood pressure 121/83, respiratory rate 18, heart rate 96, temperature 97.6 with saturation 99. HEENT: Normocephalic, atraumatic. Mucosa dry. Pallor positive no icterus. NECK: Supple. No JVD, no carotid bruit. No lymphadenopathy. LUNGS: Decreased and clear. No rales or rhonchi. HEART: S1, S2 normal. No S3. No murmur, gallop or regurgitation. Epigastric discomfort present. ABDOMEN: Soft, nontender. Bowel sounds active. No rigidity. No rebound or guarding. No CVA tenderness. EXTREMITIES: No cyanosis, clubbing or pedal edema. MUSCULOSKELETAL: No joint swelling. NEUROLOGIC: Awake, alert, oriented times three. No focal deficit. LYMPHATIC: No lymph nodes palpable. SKIN: Intact. LABS: WBC 16.25, hgb 11.6, hct 36.4, plt count 293, sodium 141, potassium 4.2, chloride 108, bicarb 25, BUN 18, creatinine 1.11 and glucose 98. ASSESSMENT: 1. Acute gastroenteritis 2. Dehydration 3. Osteoarthritis 4. Atrophic kidney 5. Leukocytosis from dehydration PLAN: 1. IV fluids 2. Clear liquid diet and advance as tolerated 3. Lovenox for the DVT prophylaxis. TIME SPENT: More than 35 minutes MTDD
--- NOTE | 2018-05-01 11:40 | DS ---
DATE OF SERVICE: 03/17/18 FINAL DIAGNOSIS: 1. ACUTE GASTROENTERITIS 2. LEUKOCYTOSIS SECONDARY TO ACUTE GASTROENTERITIS 3. DEHYDRATION 4. ATROPHIC LEFT KIDNEY 5. OSTEOARTHRITIS 6. DJD SPINE 7. TUBAL LIGATION 8. DEPRESSION/ANXIETY DISCHARGE INSTRUCTIONS: Followup appointment at the [facility] within 5 to 7 days. MEDICATIONS AT DISCHARGE: Atorvastatin Azelastine Lexapro Ferrous Sulfate Flonase Mucinex Lisinopril Zantac Carafate Neurontin Tylenol NEW PRESCRIPTIONS: None DIET INSTRUCTIONS: Regular diet. ACTIVITY: As much as tolerated. DISEASE SPECIFIC EDUCATION: Dehydration, gastroenteritis have been discussed. Verbalized understanding. HOSPITAL COURSE: This is a 52-year-old female, who came to the office complaining that she is unable to keep anything down, nausea, vomiting, abdominal pain and cramping. Given her symptoms, the patient was directly admitted to the hospital. CT of the abdomen did not show any acute findings. White count 21,000 with left shift. BUN 20, creatinine normal. Amylase and lipase were normal. Urine was normal. Urine drug screen positive for opiates and the rest is negative. She was started on IV fluids and Zofran. With the given treatment, gradually the patient started feeling better. She did not have any problems. She was started on clear liquid diet. White count was coming down from 21,000-16,000-9,000. Hemoglobin was steady. BUN got better 14 and 0.81 creatinine. As the patient has been up and about walking, did not have any problems, unable to keep food down, the patient was discharged home on 04/07/18. TIME SPENT: MORE THAN 65 MINUTES MTDD
== END 2018-03-17 10:20 | disposition home or self-care (01) ==
LOC: MEDSURG B 16:06 → INTOOBSV 16:06
PROVIDERS: ADMIT Emergency Medicine; ATTEND Emergency Medicine
DX: R11.2 Nausea with vomiting, unspecified (principal); R10.9 Unspecified abdominal pain; K52.9 Noninfective gastroenteritis and colitis, unspecified; D72.829 Elevated white blood cell count, unspecified; E86.0 Dehydration; F41.8 Other specified anxiety disorders; M19.90 Unspecified osteoarthritis, unspecified site; M47.9 Spondylosis, unspecified
CPT/HCPCS: 36415; 80053; 80306; 81001; 82150; 83690; 85025; 99217; 99220; 99226

== ENCOUNTER 2018-03-30 12:47 | Inpatient (IN) ==
--- NOTE | 2018-03-30 13:04 | ED.PDOC ---
General ED Provider: Dr. JULIO PETIT Chief Complaint: Foot Pain/Injury Stated Complaint: Patient had surgery on the left foot several weeks ago. Now comes to the Er with foot pain in area of prior foot surgery (Glanglion cyst removal 2 months ago). Also complains of some drainage and redness. Time Seen by Physician: 13:02 Mode of Arrival: Walk-In Information Source: Patient Exam Limitations: No limitations Primary Care [facility] Nursing and Triage Documentation Reviewed and Agree: Yes Does patient meet sepsis criteria?: No System Inflammatory Response Syndrome: Not Applicable Sepsis Protocol: For patient's 13 years and over: Temp is 96.8 and below OR 101 and greater Pulse >90 BPM Resp >20/minute Acutely Altered Mental Status Are patient's symptoms suggestive of a new infection, such as: -Pneumonia -Skin, Soft Tissue -Endocarditis -UTI -Bone, Joint Infection -Implantable Device -Acute Abdominal Infection -Wound Infection -Meningitis -Blood Stream Catheter Infection -Unknown Skin Complaint Exam - Skin/Soft Tissue Complaint/Exam Onset/Duration: This morning Symptoms Are: Still present Timing: Constant Character: Reports: Redness, Swelling, Raised, Painful (very painful even to stand. Unable to walk ) Aggravating: Reports: Touch Alleviating: Reports: None Associated Signs and Symptoms: Reports: Drainage (puss on on the area of scar ) , Tenderness, Red streaks Recent Exposure to Others w/Similar Symptoms: No Skin Findings: Present: Erythema Differential Diagnoses: Abscess, Cellulitis, Infection, MRSA Review of Systems - Review Of Systems Constitutional: Reports: No symptoms Eyes: Reports: No symptoms Ears, Nose, Mouth, Throat: Reports: No symptoms Respiratory: Reports: No symptoms Cardiac: Reports: No symptoms GI: Reports: No symptoms : Reports: No symptoms Musculoskeletal: Reports: Joint pain Skin: Reports: Other (erythema on the left foot ) Neurological: Reports: Anxiety Hematologic/Lymphatic: Reports: No symptoms All Other Systems: Reviewed and Negative Past Medical History - Past Medical History Previously Healthy: Yes Endocrine: Reports: None Cardiovascular: Reports: Hypertension Respiratory: Reports: None Hematological: Reports: None Gastrointestinal: Reports: GERD Genitourinary: Reports: None Neuro/Psych: Reports: Anxiety, Depression Musculoskeletal: Reports: Arthritis, Joint Pain, Other (foot infection ) Cancer: Reports: None Last Menstrual Period: N/A Other Pertinent Past Medical History: Osteoporosis - Surgical History General Surgical History: Reports: Tubal ligation, Orthopedic ( CARPAL TUNNEL, Left foot surgery ) - Family History Family History: Reports: Unknown - Social History Smoking Status: Former smoker Hx Substance Use: No Alcohol Screening: None - Immunizations Tetanus Shot up to Date: Yes Influenza Vaccine within 12 Months: No Pneumococcal Vaccine up to Date: No Physical Exam - Physical Exam Appearance: Ill-appearing Ill-appearing: Mild Pain Distress: Moderate Neck: Supple Respiratory: Airway patent Cardiovascular: RRR, Pulses normal, No rub GI/: Soft, Nontender, No masses, Bowel sounds normal, No Organomegaly Musculoskeletal: Limited ROM Skin: Warm, Dry (Ertythema on the left dorsum of foot ) Neurological: Alert, Oriented Psychiatric: Anxious Physician Notification - Case Discussed Physician Notified: Dr Finn Time of Notification: 13:52 Critical Care Note - Critical Care Note Total Time (mins): 0 Course - Course Hematology/Chemistry: 03/30/18 13:30 03/30/18 13:30 Orders, Labs, Meds: Lab Review 03/30/18 03/30/18 03/30/18 13:30 13:30 13:30 WBC 13.61 H RBC 3.74 L Hgb 11.3 L Hct 34.9 L MCV 93.3 MCH 30.2 MCHC 32.4 RDW Coeff of Michele 12.9 Plt Count 311 Immature Gran % (Auto) 0.5 Neut % (Auto) 75.5 Lymph % (Auto) 16.4 [place] % (Auto) 5.5 Eos % (Auto) 1.7 Baso % (Auto) 0.4 Immature Gran # (Auto) 0.1 Neut # (Auto) 10.3 H Lymph # (Auto) 2.2 [place] # (Auto) 0.8 Eos # (Auto) 0.2 Baso # (Auto) 0.1 ESR 54 H Sodium 141 Potassium 3.2 L Chloride 103 Carbon Dioxide 27 Anion Gap 14.2 BUN 13 Creatinine 1.00 Estimated GFR (MDRD) 58.00 BUN/Creatinine Ratio 13.00 Glucose 91 Lactic Acid Calcium 9.5 Total Bilirubin 0.4 AST 12 L ALT 11 L Alkaline Phosphatase 91 Total Protein 7.0 Albumin 3.3 L Globulin 3.7 Albumin/Globulin Ratio 0.89 Procalcitonin 03/30/18 03/30/18 13:30 13:30 WBC RBC Hgb Hct MCV MCH MCHC RDW Coeff of Michele Plt Count Immature Gran % (Auto) Neut % (Auto) Lymph % (Auto) [place] % (Auto) Eos % (Auto) Baso % (Auto) Immature Gran # (Auto) Neut # (Auto) Lymph # (Auto) [place] # (Auto) Eos # (Auto) Baso # (Auto) ESR Sodium Potassium Chloride Carbon Dioxide Anion Gap BUN Creatinine Estimated GFR (MDRD) BUN/Creatinine Ratio Glucose Lactic Acid 17.0 Calcium Total Bilirubin AST ALT Alkaline Phosphatase Total Protein Albumin Globulin Albumin/Globulin Ratio Procalcitonin < 0.05 Orders Category Date Time Status ACTIVITY .Early Mobilization for VTE Prevention CARE 03/30/18 13:48 Completed INTAKE & OUTPUT Q8HR CARE 03/30/18 13:47 Active VITAL SIGNS Q8HR CARE 03/30/18 13:48 Completed REGULAR DIET DIETARY 03/30/18 Dinner Ordered BASIC METABOLIC PANEL DAILY@0600 LAB 03/31/18 06:00 Ordered BASIC METABOLIC PANEL DAILY@0600 LAB 04/01/18 06:00 Ordered BLOOD CULTURE (ED ONLY) Stat LAB 03/30/18 13:30 Received CBC W/ AUTO DIFF DAILY@0600 LAB 03/31/18 06:00 Ordered CBC W/ AUTO DIFF DAILY@0600 LAB 04/01/18 06:00 Ordered CBC W/ AUTO DIFF Stat LAB 03/30/18 13:30 Completed COMPREHENSIVE METABOLIC PANEL Stat LAB 03/30/18 13:30 Completed ESR Stat LAB 03/30/18 13:30 Completed LACTIC ACID Stat LAB 03/30/18 13:30 Completed PROCALCITONIN Stat LAB 03/30/18 13:30 Completed WOUND CULTURE Stat LAB 03/30/18 13:25 Received Acetaminophen [Tylenol] MEDS 03/30/18 13:47 Ordered 650 mg PO Q4H PRN Clindamycin Phosphate Inj [Cleocin] MEDS 03/30/18 13:38 Discontinued 600 mg .ROUTE .STK-MED ONE Enoxaparin Sodium [Lovenox] MEDS 03/31/18 09:00 Ordered 40 mg SUBCUT DAILY Hydrocodone Bit/Acetaminophen [Excel 5-325] MEDS 03/30/18 13:47 Ordered 1 tab PO Q6H PRN Morphine Sulfate [Morphine 2 mg/ml Syringe] MEDS 03/30/18 13:47 Ordered 2 mg IVP Q4H PRN Ondansetron HCl/Pf [Zofran 4 mg/2 ml] MEDS 03/30/18 13:47 Ordered 4 mg IVP Q6H PRN Sodium Chloride 0.9% [Sodium Chloride] 1,000 ml MEDS 03/30/18 14:00 Ordered IV 75 mls/hr Sulfamethoxazole/Trimethoprim [Bactrim Ds 800/160 mg] MEDS 03/30/18 13:07 Discontinued 1 tab PO ONCE STA RESUSCITATION STATUS Routine OTHERS 03/30/18 13:47 Ordered FOOT, LEFT 3 VIEWS Stat RADS 03/30/18 13:03 Completed Medications Generic Name Dose Route Start Last Admin Trade Name Freq PRN Reason Stop Dose Admin Acetaminophen 650 mg 03/30/18 13:47 03/30/18 18:33 Tylenol PO 650 mg Q4H PRN Administration mild pain and fever Hydrocodone Bitart/Acetaminophen 1 tab 03/30/18 13:47 03/30/18 22:11 Excel 5-325 PO 1 tab Q6H PRN Administration moderate pain Atorvastatin Calcium 20 mg 03/31/18 09:00 Lipitor PO DAILY USMAN Enoxaparin Sodium 40 mg 03/31/18 09:00 Lovenox SUBCUT DAILY USMAN Gabapentin 300 mg 03/30/18 15:00 03/30/18 20:35 Neurontin PO 300 mg TID USMAN Administration Guaifenesin 600 mg 03/30/18 21:00 03/30/18 20:35 Mucinex PO 600 mg BID USMAN Administration Sodium Chloride 1,000 mls @ 75 mls/hr 03/30/18 14:00 03/30/18 14:15 Sodium Chloride IV 75 mls/hr .[id number] USMAN Administration Vancomycin HCl 1.5 gm/ Sodium 500 mls @ 200 mls/hr 03/30/18 21:00 03/30/18 20 :37 Chloride IV 200 mls/hr Q12HR USMAN Administration Lisinopril 10 mg 03/31/18 09:00 Zestril PO DAILY USMAN Morphine Sulfate 2 mg 03/30/18 13:47 Morphine 2 Mg/Ml Syringe IVP Q4H PRN Severe Pain Non-Formulary Medication 10 mg 03/31/18 09:00 Escitalopram Oxalate [Lexapro] PO DAILY USMAN Non-Formulary Medication 325 mg 03/30/18 21:00 03/30/18 20:35 Ferrous Sulfate [Ferrous Sulfate] PO 325 mg BID USMAN Administration Ondansetron HCl 4 mg 03/30/18 13:47 Zofran 4 Mg/2 Ml IVP Q6H PRN Nausea / Vomiting Potassium Chloride 20 meq 03/30/18 15:00 03/30/18 15:48 K-Dur PO 04/01/18 23:59 20 meq DAILYWM USMAN Administration Ranitidine HCl 150 mg 03/30/18 21:00 03/30/18 20:35 Zantac PO 150 mg BID USMAN Administration Sucralfate 1 gm 03/30/18 14:30 Carafate PO QID ACHS USMAN Discontinued Medications Generic Name Dose Route Start Last Admin Trade Name Freq PRN Reason Stop Dose Admin Vancomycin HCl 1 gm/ Sodium 250 mls @ 250 mls/hr 03/30/18 13:54 03/30/18 14: 15 Chloride IV 03/30/18 14:53 250 mls/hr ONCE STA Administration Trimethoprim/Sulfamethoxazole 1 tab 03/30/18 13:07 03/30/18 13:17 Bactrim Ds 800/160 Mg PO 03/30/18 13:08 1 tab ONCE STA Administration Vital Signs: Temp Pulse Resp BP Pulse Ox 03/30/18 12:48 98.8 F 102 H 16 151/99 H 98 Departure - Departure Time of Disposition: 13:52 Disposition: ADMITTED INPATIENT Discharge Problem: Cellulitis and abscess of foot Condition: Good Pt referred to PMD for follow-up: Yes IPMP verified?: No Allergies/Adverse Reactions: Allergies doxycycline Allergy (Mild, Verified 03/30/18 12:51) sick to stomach tramadol Allergy (Mild, Verified 03/30/18 12:51) nausea Patient to notify drugstore wheat Allergy (Mild, Verified 03/30/18 12:51) n/v clindamycin Adverse Reaction (Verified 03/30/18 12:51) naproxen Adverse Reaction (Verified 03/30/18 12:51) Penicillins Adverse Reaction (Verified 03/30/18 12:51) Sauerkraut Adverse Reaction (Uncoded 03/30/18 12:51) Home Medications: Ambulatory Orders Acetaminophen [Tylenol] 500 mg PO Q6H PRN #30 tablet 06/23/16 Gabapentin 300 mg PO TID 12/19/17 Ondansetron [Zofran Odt] 4 mg PO BID #30 tab.rapdis 03/17/18
[2018-03-30] MEDS ORDERED: BACTRIM DS 800/160 MG PO STA (13:07)
[2018-03-30] MEDS ORDERED: CLEOCIN 600 MG in SODIUM CHLORIDE 50 ML IV STA (13:17)
--- NOTE | 2018-03-30 13:21 | DI ---
EXAM: Three views of the left foot. History: Left foot pain, recent surgery. Findings: No acute fracture or dislocation. Mild calcaneal enthesiopathy. Diffuse subcutaneous pepper ma Moderate narrowing of the first tarsometatarsal joint with osteophytes. No abnormal calcification s or radiopaque foreign bodies. Impression: 1. No acute osseous abnormality. 2. Diffuse subcutaneous edema. 3. Moderate osteoarthritis of the first tarsometatarsal joint
[2018-03-30] MEDS ORDERED: CLEOCIN ONE (13:38)
[2018-03-30] MEDS ORDERED: ZOFRAN 4 MG/2 ML IVP PRN (13:47)
[2018-03-30] MEDS ORDERED: VANCOMYCIN 1 GM in SODIUM CHLORIDE 250 ML IV STA (13:54)
[2018-03-30] MEDS ORDERED: TYLENOL PO PRN (14:05)
[2018-03-30] MEDS: SODIUM CHLORIDE 1,000 ML IV SCH (14:15)
[2018-03-30] MEDS: NORCO 5-325 PO PRN ×2 (14:44→22:11)
[2018-03-30 14:49] VITALS: BMI 27.1
[2018-03-30] MEDS: NEURONTIN PO SCH ×2 (15:48→20:35)
[2018-03-30] MEDS: K-DUR PO SCH (15:48)
--- NOTE | 2018-03-30 17:15 | CT ---
EXAM: CT left foot HISTORY: Infection, concern for osteomyelitis. TECHNIQUE: CT left foot without contrast. Multiplanar images. FINDINGS: Diagnostic limitations exist without including contrast enhanced images. There is a 2.8 x 2.8 cm region of soft tissue opacity at the plantar aspect of the foot, midportion at the level of t he metatarsophalangeal joints extending to some degree in between the second and third digits. Tiny amount of gas is seen within the soft tissues of this level. This is consistent with an ulcer/absces s. There is no evidence of bony destruction. No fracture or joint dislocation. Mild osteoarthritis thr oughout. Early enthesopathy of the posterior calcaneus. No joint effusion. IMPRESSION: 1. Ulcer of the plantar surface of the foot without evidence of osteomyelitis.
[2018-03-30] MEDS ORDERED: CLEOCIN 600 MG in SODIUM CHLORIDE 50 ML IV SCH (18:00)
[2018-03-30] MEDS: TYLENOL PO PRN (18:33)
[2018-03-30] MEDS ORDERED: FERROUS SULFATE ONE (20:00)
[2018-03-30] MEDS: MUCINEX PO SCH (20:35)
[2018-03-30] MEDS ORDERED: VANCOMYCIN 1.5 GM in SODIUM CHLORIDE 500 ML IV SCH (21:00)
[2018-03-30] MEDS ORDERED: NON-FORMULARY MEDICATION (Ferrous Sulfate [Ferrous Sulfate] 325 MG) PO SCH (21:00)
[2018-03-30] MEDS ORDERED: ZANTAC PO SCH (21:00)
[2018-03-31] MEDS: MORPHINE 2 MG/ML SYRINGE IVP PRN ×2 (02:44→10:07)
[2018-03-31] MEDS: NORCO 5-325 PO PRN ×2 (05:00→18:12)
[2018-03-31] MEDS: SODIUM CHLORIDE 1,000 ML IV SCH ×2 (05:04→20:26)
[2018-03-31] MEDS: LIPITOR PO SCH (08:43)
[2018-03-31] MEDS: K-DUR PO SCH (08:43)
[2018-03-31] MEDS: LEXAPRO PO SCH (08:43)
[2018-03-31] MEDS: CARAFATE PO SCH ×4 (08:43→20:30)
[2018-03-31] MEDS: MUCINEX PO SCH ×2 (08:43→20:30)
[2018-03-31] MEDS: ZESTRIL PO SCH (08:44)
[2018-03-31] MEDS: FERROUS SULFATE PO SCH ×2 (08:44→20:30)
[2018-03-31] MEDS: NEURONTIN PO SCH ×3 (08:44→20:30)
[2018-03-31] MEDS: ZANTAC PO SCH ×2 (08:44→16:58)
[2018-03-31] MEDS: LOVENOX SUBCUT SCH (08:45)
[2018-03-31] MEDS: VANCOMYCIN 750 MG in SODIUM CHLORIDE 250 ML IV SCH ×2 (08:45→20:27)
[2018-03-31] MEDS ORDERED: ESCITALOPRAM OXALATE 10 MG PO SCH (09:00)
[2018-03-31] MEDS: ROCEPHIN 1 GM in SODIUM CHLORIDE 50 ML IV SCH (11:39)
[2018-03-31] MEDS: TYLENOL PO PRN (13:29)
[2018-04-01] MEDS: NORCO 5-325 PO PRN ×3 (00:28→20:25)
[2018-04-01] MEDS: TYLENOL PO PRN (04:49)
[2018-04-01] MEDS: ZANTAC PO SCH (05:39)
[2018-04-01] MEDS: CARAFATE PO SCH ×5 (05:39→20:18)
[2018-04-01] MEDS: K-DUR PO SCH (09:22)
[2018-04-01] MEDS: FERROUS SULFATE PO SCH ×2 (09:22→20:19)
[2018-04-01] MEDS: NEURONTIN PO SCH ×3 (09:22→20:18)
[2018-04-01] MEDS: LOVENOX SUBCUT SCH (09:23)
[2018-04-01] MEDS: MUCINEX PO SCH ×2 (09:23→20:18)
[2018-04-01] MEDS: LEXAPRO PO SCH (09:23)
[2018-04-01] MEDS: LIPITOR PO SCH (09:23)
[2018-04-01] MEDS: ZESTRIL PO SCH (09:28)
[2018-04-01] MEDS: ROCEPHIN 1 GM in SODIUM CHLORIDE 50 ML IV SCH (09:28)
[2018-04-01] MEDS: VANCOMYCIN 750 MG in SODIUM CHLORIDE 250 ML IV SCH ×2 (10:14→20:17)
--- NOTE | 2018-04-01 11:52 | HP ---
DATE OF SERVICE: 03/30/18 CHIEF COMPLAINT: Left foot pain, swelling and draining pus. HISTORY OF PRESENT ILLNESS: The patient had left foot ganglion surgery in August,. After that she had complications with wound infection for which the patient was admitted and she was doing good. Again, for the last three days the left foot carin been swollen, red and started draining pus. She came to the emergency room and was seen by Dr. Bowen in the emergency room. White count 13.61, left shift. ESR is 54, potassium 3.2. Redness and tenderness to touch. At that time, the patient was admitted to the hospital for IV antibiotics and treatment. REVIEW OF SYSTEMS: CONSTITUTIONAL: No fever, no chills. HEENT: Normal. ENDOCRINE: No weight gain; no weight loss. CVS: No chest pain. No PND, no orthopnea. No shortness of breath. No PND, no orthopnea. RESPIRATORY: No cough, no congestion. No hemoptysis. GI: No nausea, no vomiting. No abdominal pain. No melena. : No hematuria. No polyuria. MUSCULOSKELETAL: Left foot pain, swelling, redness and drainage; back ache, shoulder pain, and knee pain. PSYCHIATRIC: Depression. Not anxious. No suicidal thoughts. No homicidal thoughts. SKIN: Intact, no open lesions. PAST MEDICAL HISTORY: Hypertension History of pneumonia GERD Osteoarthritis DJD spine Depression/Anxiety PAST SURGICAL HISTORY: Left foot surgery Removal of ganglion in August of 2017 Tubal ligation PERSONAL HISTORY: , lives with . She smokes cigarettes. FAMILY HISTORY: Significant for headache. MEDICATIONS: (HOME) Tylenol Lipitor Ferrous Sulfate Lisinopril Neurontin Zantac Lexapro Carafate Flonase Azelastine Zofran Mucinex ALLERGIES: DOXYCYCLINE, TRAMADOL, WHEAT, CLINDAMYCIN AND NAPROXEN PHYSICAL EXAMINATION: V/S: BP 151/99, pulse 102, respiratory rate 16, 02 saturation 98 on room air. HEENT: Atraumatic, normocephalic. No scleral icterus. NECK: Supple. No JVD, no bruit. No lymphadenopathy. No thyromegaly. HEART: S1, S2 normal. No murmur. No cyanosis or clubbing. No ascites. LUNGS: Clear to auscultation. No rales or rhonchi. ABDOMEN: Soft, nontender. Bowel sounds are active. No CVA tenderness. No rigidity or guarding. EXTREMITIES: Left foot is swollen, red and tender. At the incision site there is a small opening, almost like 1/2 cm, which is draining pus. The patient has severe tenderness. No pedal edema. No cyanosis or clubbing MUSCULOSKELETAL: Normal joints, no swelling. NEUROLOGIC: The patient is awake and alert. SKIN: Intact; no open lesions. LYMPHATIC: No lymph nodes palpable. LABS: Sodium 141, potassium 3.2, chloride 103, bicarb 27, BUN 13, creatinine 1.0, glucose 91, white count 13.61, hemoglobin 11.3, hematocrit 34.9, platelet count 311. ESR 54. ASSESSMENT: 1. LEFT FOOT CELLULITIS 2. WOUND INFECTION 3. HISTORY OF HYPERTENSION 4. OSTEOARTHRITIS 5. DEPRESSION/ANXIETY PLAN: 1. Admit the patient to the regular floor 2. CBC, CMP today and daily 3. IV fluids 4. IV Rocephin and Vancomycin 5. CT of the left foot 6. Morphine p.r.n. TIME SPENT: MORE THAN 75 minutes MTDD
--- NOTE | 2018-04-01 12:52 | US ---
EXAM: Nonvascular ultrasound of the left lower extremity. History: Left lower extremity pain and swelling with redness. Technique: Multiple sonographic images through the left lower extremity were obtained. Color duplex Doppler was used to interrogate vascular flow. Findings / impression: Along the dorsal aspect of the foot within the subcutaneous soft tissues ther e is a 3.8 cm x 0.9 cm x 1.8 cm area of fluid with surrounding hyperemia compatible with an abscess. There is surrounding cellulitis.
--- NOTE | 2018-04-01 13:26 | PN ---
DATE OF SERVICE: 03/31/18 SUBJECTIVE: The patient is admitted with left foot cellulitis. CT scan did not show any osteomyelitis. Swelling and redness is still present, draining some pus. REVIEW OF SYSTEMS: CONSTITUTIONAL: No fever, no chills. HEENT: Normal. ENDOCRINE: No weight gain, no weight loss. CVS: No angina symptoms. No CHF symptoms. No palpitations. No atypical chest pain for CAD. No shortness of breath. No PND, no orthopnea. RESPIRATORY: No cough, no hemoptysis. GI: No nausea, no vomiting. No abdominal pain. : No hematuria. No polyuria. MUSCULOSKELETAL: No joint swelling. PSYCHIATRIC: Not anxious. No depression. No suicidal thoughts. No homicidal thoughts. SKIN: Left foot swelling, redness with drainage. PHYSICAL EXAMINATION: V/S: BP 142/90, respiratory rate 18, heart rate 88, temperature 97.9, saturation 97. HEENT: Normocephalic, atraumatic. Mucosa dry. Pallor positive. No icterus. NECK: Supple. No JVD, no carotid bruit. No lymphadenopathy. LUNGS: Clear to auscultation. No rales or rhonchi. HEART: S1, S2 normal. No S3. No murmur, gallop or regurgitation. ABDOMEN: Soft, nontender. Bowel sounds active. No rigidity. No rebound or guarding. No CVA tenderness. EXTREMITIES: Left foot swelling and redness is present. A small opening on the dorsum of the foot which is draining pus. Very tender to touch, not able to wiggle the toes. No cyanosis, clubbing or pedal edema. MUSCULOSKELETAL: No joint swelling. NEUROLOGIC: Awake, alert, oriented times three. No focal deficit. LYMPHATIC: No lymph nodes palpable. SKIN: Intact. LABS: White count is 13.30, hemoglobin 10.2, hematocrit 34.9, platelet count 262. Sodium 139, potassium 3.6, chloride 106, bicarb 24, BUN 10, creatinine 0.99. ASSESSMENT: 1. LEFT FOOT CELLULITIS, NO OSTEOMYELITIS PER CT SCAN 2. STATUS POST SURGERY ON LEFT FOOT FOR GANGLION 08/2017 3. GERD 4. OSTEOARTHRITIS 5. DEPRESSION/ANXIETY 6. ANEMIA PLAN: 1. Continue Vancomycin. 2. Will add Rocephin 1 gm daily. 3. Lovenox for daily prophylaxis. 4. Morphine for pain. TIME SPENT: More than 35 minutes MTDD
[2018-04-01] MEDS: SODIUM CHLORIDE 1,000 ML IV SCH (16:35)
[2018-04-01] MEDS ORDERED: MYLANTA SUSP PO STA (23:38)
[2018-04-02] MEDS: ZANTAC PO SCH ×3 (05:36→17:07)
[2018-04-02] MEDS: CARAFATE PO SCH ×5 (05:37→20:07)
[2018-04-02] MEDS: SODIUM CHLORIDE 1,000 ML IV SCH ×2 (06:44→18:46)
[2018-04-02] MEDS: ROCEPHIN 1 GM in SODIUM CHLORIDE 50 ML IV SCH (08:44)
[2018-04-02] MEDS: NEURONTIN PO SCH ×3 (08:45→20:07)
[2018-04-02] MEDS: LEXAPRO PO SCH (08:45)
[2018-04-02] MEDS: FERROUS SULFATE PO SCH ×2 (08:45→20:07)
[2018-04-02] MEDS: MUCINEX PO SCH ×2 (08:45→20:07)
[2018-04-02] MEDS: LIPITOR PO SCH (08:45)
[2018-04-02] MEDS: LOVENOX SUBCUT SCH (08:46)
[2018-04-02] MEDS: ZESTRIL PO SCH (08:46)
[2018-04-02] MEDS: NORCO 5-325 PO PRN ×2 (08:52→20:10)
[2018-04-02] MEDS: VANCOMYCIN 750 MG in SODIUM CHLORIDE 250 ML IV SCH ×2 (09:47→20:07)
[2018-04-02] MEDS: ZOSYN 3.375 GM 3.375 GM in SODIUM CHLORIDE 50 ML IV SCH ×2 (12:10→17:07)
[2018-04-03] MEDS: SODIUM CHLORIDE 1,000 ML IV SCH ×2 (03:03→20:47)
[2018-04-03] MEDS: ZOSYN 3.375 GM 3.375 GM in SODIUM CHLORIDE 50 ML IV SCH ×4 (05:12→17:39)
[2018-04-03] MEDS: ZANTAC PO SCH ×2 (05:43→16:48)
[2018-04-03] MEDS: CARAFATE PO SCH ×4 (05:43→20:50)
[2018-04-03] MEDS: TYLENOL PO PRN (07:57)
[2018-04-03] MEDS: LEXAPRO PO SCH (08:05)
[2018-04-03] MEDS: MUCINEX PO SCH ×2 (08:05→20:49)
[2018-04-03] MEDS: ZESTRIL PO SCH (08:05)
[2018-04-03] MEDS: LIPITOR PO SCH (08:06)
[2018-04-03] MEDS: FERROUS SULFATE PO SCH ×2 (08:06→20:50)
[2018-04-03] MEDS: VANCOMYCIN 750 MG in SODIUM CHLORIDE 250 ML IV SCH ×2 (08:06→20:48)
[2018-04-03] MEDS: NEURONTIN PO SCH ×3 (08:06→20:49)
[2018-04-03] MEDS: LOVENOX SUBCUT SCH (08:08)
[2018-04-04] MEDS: ZOSYN 3.375 GM 3.375 GM in SODIUM CHLORIDE 50 ML IV SCH ×2 (00:11→05:48)
[2018-04-04] MEDS: ZANTAC PO SCH ×2 (05:48→16:28)
[2018-04-04] MEDS: CARAFATE PO SCH ×4 (05:48→21:31)
[2018-04-04] MEDS: TYLENOL PO PRN ×2 (06:32→10:28)
[2018-04-04] MEDS: LEXAPRO PO SCH (09:35)
[2018-04-04] MEDS: LIPITOR PO SCH (09:36)
[2018-04-04] MEDS: ZESTRIL PO SCH (09:36)
[2018-04-04] MEDS: MUCINEX PO SCH ×2 (09:36→21:31)
[2018-04-04] MEDS: NEURONTIN PO SCH ×3 (09:36→21:31)
[2018-04-04] MEDS: FERROUS SULFATE PO SCH ×2 (09:37→21:31)
[2018-04-04] MEDS: LOVENOX SUBCUT SCH (09:37)
[2018-04-04] MEDS: VANCOMYCIN 750 MG in SODIUM CHLORIDE 250 ML IV SCH (10:32)
--- NOTE | 2018-04-04 10:51 | PN ---
DATE OF SERVICE: 04/02/18 SUBJECTIVE: Left foot started draining the puss. Ultrasound did show some puss pocket of almost 1cm. Left foot still having pain and drainage. REVIEW OF SYSTEMS: CONSTITUTIONAL: No fever, no chills. HEENT: Normal. ENDOCRINE: No weight gain, no weight loss. CVS: No angina symptoms. No CHF symptoms. No palpitations. No atypical chest pain for CAD. No shortness of breath. No PND, no orthopnea. RESPIRATORY: No cough, no hemoptysis. GI: No nausea, no vomiting. No abdominal pain. : No hematuria. No polyuria. MUSCULOSKELETAL: No joint swelling. PSYCHIATRIC: Not anxious. No depression. No suicidal thoughts. No homicidal thoughts. SKIN: Intact. No rash. PHYSICAL EXAMINATION: V/S: blood pressure 134/78, respiratory rate 16, heart rate 82, temperature 97.6 with saturation 97%. HEENT: Normocephalic, atraumatic. Mucosa dry. Pallor positive. NECK: Supple. No JVD, no carotid bruit. No lymphadenopathy. LUNGS: Clear to auscultation. No rales or rhonchi. HEART: S1, S2 normal. No S3. No murmur, gallop or regurgitation. ABDOMEN: Soft, nontender. Bowel sounds active. No rigidity. No rebound or guarding. No CVA tenderness. EXTREMITIES: No cyanosis, clubbing or pedal edema. Look foot swollen, red and tender. Draining puss from the previous old scar in between the first and second toe. Able to wiggle the toes. MUSCULOSKELETAL: No joint swelling. NEUROLOGIC: Awake, alert, oriented times three. No focal deficit. LYMPHATIC: No lymph nodes palpable. SKIN: Intact. LABS: WBC 11.59, hgb 10.0, hct 35.9, plt count 256, sodium 139, potassium 4.0, chloride 107, bicarb 22, BUN 13, creatinine 0.93 and glucose 109. ASSESSMENT: 1. Left foot cellulitis with draining puss 2. History of previous surgery for the neuroma 3. Elevate white count 4. Osteoarthritis 5. GERD 6. Depression PLAN: 1. Stop the Rocephin 2. Start the Azactam 3. Continue the Lovenox for the DVT prophylaxis 4. Daily I&O's TIME SPENT: More than 35 minutes MTDD
--- NOTE | 2018-04-04 11:39 | PN ---
DATE OF SERVICE: 04/03/18 SUBJECTIVE: Left foot is still draining the puss and serous fluid. The patient can move the foot and toes, can wiggle the toes. REVIEW OF SYSTEMS: CONSTITUTIONAL: No fever, no chills. HEENT: Normal. ENDOCRINE: No weight gain, no weight loss. CVS: No angina symptoms. No CHF symptoms. No palpitations. No atypical chest pain for CAD. No shortness of breath. No PND, no orthopnea. RESPIRATORY: No cough, no hemoptysis. GI: No nausea, no vomiting. No abdominal pain. : No hematuria. No polyuria. MUSCULOSKELETAL: No joint swelling. PSYCHIATRIC: Not anxious. No depression. No suicidal thoughts. No homicidal thoughts. SKIN: Intact. No rash. PHYSICAL EXAMINATION: V/S: Blood pressure 150/88, respiratory rate 16, heart rate 79, temperature 97.9 and saturation 98%. HEENT: Normocephalic, atraumatic. Mucosa dry. Pallor positive. NECK: Supple. No JVD, no carotid bruit. No lymphadenopathy. LUNGS: Clear to auscultation. No rales or rhonchi. HEART: S1, S2 normal. No S3. No murmur, gallop or regurgitation. ABDOMEN: Soft, nontender. Bowel sounds active. No rigidity. No rebound or guarding. No CVA tenderness. EXTREMITIES: No cyanosis, clubbing or pedal edema. Left dorsum of the foot swelling and redness is present draining clear to yellow puss. Can wiggle the toes and tenderness is present. MUSCULOSKELETAL: No joint swelling. NEUROLOGIC: Awake, alert, oriented times three. No focal deficit. LYMPHATIC: No lymph nodes palpable. SKIN: Intact. LABS: WBC 7.22, hgb 10.2, hct 31.4, plt count 332, sodium 139, potassium 4.0, chloride 107, bicarb 22, BUN 13, creatinine 0.93 and glucose 101. Wound culture did grow staph aureus, MSSA. ASSESSMENT: 1. Left foot abscess 2. History of surgery for neuroma 3. Anemia 4. Dyslipidemia 5. Osteoarthritis 6. Depression 7. Anxiety 8. Chronic pain syndrome PLAN: 1. Continue Vancomycin 2. Lovenox 3. Piperacillin 4. Tazobactam 5. Daily I&O's 6. Will continue both antibiotics at given time. TIME SPENT: More than 35 minutes MTDD
[2018-04-04] MEDS: VANCOMYCIN 1 GM in SODIUM CHLORIDE 250 ML IV SCH (13:45)
--- NOTE | 2018-04-04 13:46 | PN ---
DATE OF SERVICE: 04/01/18 SUBJECTIVE: The patient has left foot cellulitis, osteomyelitis been ruled out with CT of the foot. The patient is still having the pain in the left foot. There is minimal drainage with no fever or chills but still hurting. REVIEW OF SYSTEMS: CONSTITUTIONAL: No fever, no chills. HEENT: Normal. ENDOCRINE: No weight gain, no weight loss. CVS: No angina symptoms. No CHF symptoms. No palpitations. No atypical chest pain for CAD. No shortness of breath. No PND, no orthopnea. RESPIRATORY: No cough, no hemoptysis. GI: No nausea, no vomiting. No abdominal pain. : No hematuria. No polyuria. MUSCULOSKELETAL: No joint swelling. PSYCHIATRIC: Not anxious. No depression. No suicidal thoughts. No homicidal thoughts. SKIN: Intact. No rash. PHYSICAL EXAMINATION: V/S: Blood pressure 126/78, respiratory rate 18, heart rate 98, temperature 98.2 with saturation 98%. HEENT: Normocephalic, atraumatic. Mucosa dry. Pallor positive. NECK: Supple. No JVD, no carotid bruit. No lymphadenopathy. LUNGS: Clear to auscultation. No rales or rhonchi. HEART: S1, S2 normal. No S3. No murmur, gallop or regurgitation. ABDOMEN: Soft, nontender. Bowel sounds active. No rigidity. No rebound or guarding. No CVA tenderness. EXTREMITIES: No cyanosis, clubbing or pedal edema. Left foot swelling and redness is present. Incision site of the old incisional scar is very tender to touch. Can wiggle the toes. MUSCULOSKELETAL: No joint swelling. NEUROLOGIC: Awake, alert, oriented times three. No focal deficit. LYMPHATIC: No lymph nodes palpable. SKIN: Intact. LABS: WBC 11.59, hgb 10.0, hct 30.9, plt count 256, sodium 139, potassium 4.0, chloride 107, bicarb 22, BUN 13, creatinine 0.93 and glucose 109. ASSESSMENT: 1. Left foot cellulitis, rule out abscess 2. History of left foot surgery, neuroma removed 3. Osteoarthritis 4. DJD spine 5. Depression 6. Anxiety PLAN: 1. Rocephin and Vancomycin 2. Ultrasound of left foot 3. Tylenol and Morphine for the pain TIME SPENT: More than 35 minutes MTDD
[2018-04-04] MEDS: SODIUM CHLORIDE 1,000 ML IV SCH ×2 (16:27→16:28)
[2018-04-05] MEDS: CARAFATE PO SCH ×4 (05:49→21:15)
[2018-04-05] MEDS: ZANTAC PO SCH ×2 (05:50→17:47)
[2018-04-05] MEDS: LEXAPRO PO SCH (09:17)
[2018-04-05] MEDS: LIPITOR PO SCH (09:17)
[2018-04-05] MEDS: FERROUS SULFATE PO SCH ×2 (09:17→21:15)
[2018-04-05] MEDS: ZESTRIL PO SCH (09:17)
[2018-04-05] MEDS: MUCINEX PO SCH ×2 (09:17→21:16)
[2018-04-05] MEDS: NEURONTIN PO SCH ×3 (09:17→21:15)
[2018-04-05] MEDS: VANCOMYCIN 1 GM in SODIUM CHLORIDE 250 ML IV SCH (09:17)
[2018-04-05] MEDS: LOVENOX SUBCUT SCH (09:19)
[2018-04-05] MEDS: TYLENOL PO PRN ×2 (09:22→21:51)
--- NOTE | 2018-04-05 10:39 | PN ---
DATE OF SERVICE: 04/04/18 SUBJECTIVE: Swelling and redness in the left foot are still present. The wound is draining clear to yellow pus. No fever, no chills. REVIEW OF SYSTEMS: CONSTITUTIONAL: No fever, no chills. HEENT: Normal. ENDOCRINE: No weight gain, no weight loss. CVS: No angina symptoms. No CHF symptoms. No palpitations. No atypical chest pain for CAD. No shortness of breath. No PND, no orthopnea. RESPIRATORY: No cough, no hemoptysis. GI: No nausea, no vomiting. No abdominal pain. : No hematuria. No polyuria. MUSCULOSKELETAL: No joint swelling. PSYCHIATRIC: Not anxious. No depression. No suicidal thoughts. No homicidal thoughts. SKIN: Wound left foot, draining clear to yellow pus. PHYSICAL EXAMINATION: V/S: BP 143/97, respiratory rate 20, heart rate 81, temperature 98.0. Saturation 98. HEENT: Normocephalic, atraumatic. Mucosa dry. Pallor positive. NECK: Supple. No JVD, no carotid bruit. No lymphadenopathy. LUNGS: Clear to auscultation. No rales or rhonchi. HEART: S1, S2 normal. No S3. No murmur, gallop or regurgitation. ABDOMEN: Soft, nontender. Bowel sounds active. No rigidity. No rebound or guarding. No CVA tenderness. EXTREMITIES: No cyanosis, clubbing or pedal edema. MUSCULOSKELETAL: No joint swelling. NEUROLOGIC: Awake, alert, oriented times three. No focal deficit. LYMPHATIC: No lymph nodes palpable. SKIN: Left foot swelling. Redness is present. Tender to touch. She was able to wiggle the toes now. LABS: White count 7.22, hemoglobin 9.6, hematocrit 35.9, platelet count 324. Sodium 143, potassium 4.0, chloride 110, bicarb 24, BUN 14, creatinine 1.03, glucose 96. ASSESSMENT: 1. LEFT FOOT CELLULITIS AND ABSCESS PER ULTRASOUND, ORGANISM MSSA, OUTPATIENT TREATMENT FAILURE 2. HISTORY OF SURGERY ON THE LEFT FOOT 3. OSTEOARTHRITIS 4. DEPRESSION PLAN: 1. Continue Vancomycin 2. Stop Zosyn 3. IV fluids 4. Up and about walking TIME SPENT: More than 35 minutes MTDD
[2018-04-05] MEDS: SODIUM CHLORIDE 1,000 ML IV SCH (15:44)
[2018-04-05] MEDS: BACTRIM DS 800/160 MG PO SCH (21:15)
[2018-04-06] MEDS: CARAFATE PO SCH ×4 (05:45→21:39)
[2018-04-06] MEDS: ZANTAC PO SCH ×2 (05:45→16:47)
[2018-04-06] MEDS: MUCINEX PO SCH ×2 (08:30→21:39)
[2018-04-06] MEDS: TYLENOL PO PRN (08:30)
[2018-04-06] MEDS: BACTRIM DS 800/160 MG PO SCH ×2 (08:30→21:39)
[2018-04-06] MEDS: NEURONTIN PO SCH ×3 (08:30→21:39)
[2018-04-06] MEDS: LOVENOX SUBCUT SCH (08:31)
[2018-04-06] MEDS: FERROUS SULFATE PO SCH ×2 (08:31→21:39)
[2018-04-06] MEDS: LIPITOR PO SCH (08:31)
[2018-04-06] MEDS: LEXAPRO PO SCH (08:31)
[2018-04-06] MEDS: ZESTRIL PO SCH (08:31)
[2018-04-07] MEDS: ZANTAC PO SCH (05:29)
[2018-04-07] MEDS: CARAFATE PO SCH ×2 (07:06→11:11)
[2018-04-07] MEDS: ZESTRIL PO SCH (08:37)
[2018-04-07] MEDS: NEURONTIN PO SCH (08:37)
[2018-04-07] MEDS: LEXAPRO PO SCH (08:37)
[2018-04-07] MEDS: LIPITOR PO SCH (08:37)
[2018-04-07] MEDS: BACTRIM DS 800/160 MG PO SCH (08:37)
[2018-04-07] MEDS: LOVENOX SUBCUT SCH (08:37)
[2018-04-07] MEDS: FERROUS SULFATE PO SCH (08:37)
[2018-04-07] MEDS: MUCINEX PO SCH (08:37)
[2018-04-07 10:17] VITALS: BP 121/82; TEMP 98.1
--- NOTE | 2018-04-15 10:37 | PN ---
DATE OF SERVICE: 04/06/18 SUBJECTIVE: Left foot abscess, swelling is getting better. Minimal drainage. No fever, no chills. REVIEW OF SYSTEMS: CONSTITUTIONAL: No fever, no chills. HEENT: Normal. ENDOCRINE: No weight gain, no weight loss. CVS: No angina symptoms. No CHF symptoms. No palpitations. No atypical chest pain for CAD. No shortness of breath. No PND, no orthopnea. RESPIRATORY: No cough, no hemoptysis. GI: No nausea, no vomiting. No abdominal pain. : No hematuria. No polyuria. MUSCULOSKELETAL: No joint swelling. PSYCHIATRIC: Not anxious. No depression. No suicidal thoughts. No homicidal thoughts. SKIN: Left foot abscess. PHYSICAL EXAMINATION: V/S: BP 119/75, respiratory rate 20, heart rate 70, temperature 97.9, saturation 97. HEENT: Normocephalic, atraumatic. Mucosa dry. Pallor positive. No scleral icterus. NECK: Supple. No JVD, no carotid bruit. No lymphadenopathy. LUNGS: Clear to auscultation. No rales or rhonchi. HEART: S1, S2 normal. No S3. No murmur, gallop or regurgitation. ABDOMEN: Soft, nontender. Bowel sounds active. No rigidity. No rebound or guarding. No CVA tenderness. EXTREMITIES: Left foot abscess site, swelling and redness decreased. Small amount of serous drainage. No tenderness. No cyanosis, clubbing or pedal edema. MUSCULOSKELETAL: No joint swelling. NEUROLOGIC: Awake, alert. No focal deficit. LYMPHATIC: No lymph nodes palpable. SKIN: Intact. LABS: White count 7.26, hemoglobin 10.3, hematocrit 32.5, platelet count 396. Sodium 140, potassium 3.8, chloride 106, bicarb 24, BUN 13, creatinine 0.94, glucose 93. ASSESSMENT: 1. LEFT FOOT ABSCESS, WHICH IS GETTING BETTER 2. HISTORY OF NEUROMA SURGERY 3. OSTEOARTHRITIS 4. DEPRESSION 5. ANEMIA PLAN: 1. Continue Bactrim DS which is sensitive. 2. Up and about walking. TIME SPENT: More than 35 minutes MTDD
--- NOTE | 2018-04-15 10:48 | PN ---
DATE OF SERVICE: 04/07/18 SUBJECTIVE: The patient's left foot wound has again started draining yesterday morning. She was doing fine until yesterday. No fever, no chills. REVIEW OF SYSTEMS: CONSTITUTIONAL: No fever, no chills. HEENT: Normal. ENDOCRINE: No weight gain, no weight loss. CVS: No angina symptoms. No CHF symptoms. No palpitations. No atypical chest pain for CAD. No shortness of breath. No PND, no orthopnea. RESPIRATORY: No cough, no hemoptysis. GI: No nausea, no vomiting. No abdominal pain. : No hematuria. No polyuria. MUSCULOSKELETAL: No joint swelling. PSYCHIATRIC: Not anxious. No depression. No suicidal thoughts. No homicidal thoughts. SKIN: Left foot wound. PHYSICAL EXAMINATION: V/S: BP 139/99, respiratory rate 18, heart rate 89, temperature 97.8, saturation 98. HEENT: Normocephalic, atraumatic. Mucosa dry. Pallor positive. No icterus. NECK: Supple. No JVD, no carotid bruit. No lymphadenopathy. LUNGS: Clear to auscultation. No rales or rhonchi. HEART: S1, S2 normal. No S3. No murmur, gallop or regurgitation. ABDOMEN: Soft, nontender. Bowel sounds active. No rigidity. No rebound or guarding. No CVA tenderness. EXTREMITIES: Left foot wound draining pus, warm to touch; no tenderness. No cyanosis, clubbing or pedal edema. MUSCULOSKELETAL: No joint swelling. NEUROLOGIC: Awake, alert, oriented times three. No focal deficit. LYMPHATIC: No lymph nodes palpable. SKIN: Intact. LABS: White count 9.96, hemoglobin 10.9, hematocrit 34.5, platelet count 410. Sodium 141, potassium 3.5, chloride 106, bicarb 25, BUN 20, creatinine 1.14. ASSESSMENT: 1. LEFT FOOT ABSCESS 2. HISTORY OF NEUROMA SURGERY IN AUGUST 2017 IN [place] 3. OSTEOARTHRITIS 4. ANEMIA 5. DEPRESSION 6. DJD SPINE PLAN: 1. Continue the Bactrim 2. Wet to dry dressing 3. Out of bed to chair 4. Lovenox for DVT prophylaxis TIME SPENT: More than 35 minutes MTDD
--- NOTE | 2018-04-25 15:33 | PN ---
DATE OF SERVICE: 04/05/18 SUBJECTIVE: The patient is admitted with left foot wound gradually healing and still draining some clear to yellow puss. Red and the pink surrounding tissue, serous drainage is noted. REVIEW OF SYSTEMS: CONSTITUTIONAL: No fever, no chills. HEENT: Normal. ENDOCRINE: No weight gain, no weight loss. CVS: No angina symptoms. No CHF symptoms. No palpitations. No atypical chest pain for CAD. No shortness of breath. No PND, no orthopnea. RESPIRATORY: No cough, no hemoptysis. GI: No nausea, no vomiting. No abdominal pain. : No hematuria. No polyuria. MUSCULOSKELETAL: No joint swelling. PSYCHIATRIC: Not anxious. No depression. No suicidal thoughts. No homicidal thoughts. SKIN: Intact. No rash. PHYSICAL EXAMINATION: V/S: Blood pressure 150/94, respiratory rate 20, heart rate 82, temperature 98.2. HEENT: Normocephalic, atraumatic. Mucosa dry. Pallor positive. No icterus. NECK: Supple. No JVD, no carotid bruit. No lymphadenopathy. LUNGS: Clear to auscultation. No rales or rhonchi. HEART: S1, S2 normal. No S3. No murmur, gallop or regurgitation. ABDOMEN: Soft, nontender. Bowel sounds active. No rigidity. No rebound or guarding. No CVA tenderness. EXTREMITIES: No cyanosis, clubbing or pedal edema. left foot swelling is better, there is a small open wound in between the first and second toe draining the clear to serous fluid. MUSCULOSKELETAL: No joint swelling. NEUROLOGIC: Awake, alert. No focal deficit. LYMPHATIC: No lymph nodes palpable. SKIN: Intact. LABS: WBC 7.23, hgb 10.0, hct 31.7, plt count 345, sodium 143, potassium 3.5, chloride 109, bicarb 24, BUN 13, creatinine 0.87 and glucose 90. ASSESSMENT: 1. Acute left foot cellulitis, outpatient failure and recurrent infection post ganglion removal since March 2017 this is the third infection 2. Hypertension 3. Dyslipidemia 4. Neuropathy 5. GERD 6. Anemia 7. Osteoarthritis 8. Depression 9. Anxiety 10.Tubal ligation 11.Left foot surgery 12.Former smoker PLAN: 1. Continue Zosyn 2. Vancomycin 3. Lovenox 4. Out of bed to chair 5. Activity as tolerated 6. Keep the leg elevated 7. Risk of osteomyelitis been discussed with the patient and verbalized understanding. TIME SPENT: More than 35 minutes MTDD
--- NOTE | 2018-05-09 09:46 | AMA ---
DATE OF SERVICE: 04/07/18 HISTORY: The patient after the rounds decided that she doesn't want to stay. Advised that if she goes in the middle of the treatment infection can get in her bowels and osteomyelitis can come. The patient did not worry and said that she is just leaving against medical advise. The patient was sent a script of the Bactrim DS in case the swelling, redness and fever comes back, please come back to the emergency room. Verbalized understanding. TIME SPENT: More than 35 minutes. MARILY
== END 2018-04-07 12:30 | disposition left against medical advice (07) | DRG 603 ==
LOC: ED 12:47 → MEDSURG B 13:52
PROVIDERS: ADMIT Emergency Medicine; ATTEND Emergency Medicine
DX: L03.116 Cellulitis of left lower limb (principal); L02.612 Cutaneous abscess of left foot; F41.8 Other specified anxiety disorders; M19.90 Unspecified osteoarthritis, unspecified site; T81.4XXD Infection following a procedure, subsequent encounter; K21.9 Gastro-esophageal reflux disease without esophagitis; D72.829 Elevated white blood cell count, unspecified; D64.9 Anemia, unspecified
CPT/HCPCS: 36415; 76882; 80048; 80053; 80202; 83605; 84145; 85025; 85651; 87040; 87070; 87081; 87186; 96361; 96365; 96366; 96372; 99223; 99232; 99233; 99285

== ENCOUNTER 2018-04-22 18:52 | Emergency (ER) ==
[2018-04-22 18:57] VITALS: BP 135/95; TEMP 98.8; BMI 26.6
[2018-04-22] MEDS ORDERED: TYLENOL PO STA (19:38)
[2018-04-22] MEDS ORDERED: BACTRIM DS 800/160 MG PO STA (19:38)
--- NOTE | 2018-04-22 19:39 | ED.PDOC ---
General ED Provider: Dr. JULIO PETIT Chief Complaint: Foot Pain/Injury Stated Complaint: Patient is a 52 year old female who comes to the ER with a recent history of left foot abscesss and cellulitis. She states that it was healing but now it started to hurt and has pain with weight bearing. States she took all her bactirum prescribed. Time Seen by Physician: 19:37 Mode of Arrival: Wheelchair Information Source: Patient [facility] and T[facility] Documentation Reviewed and Agree: Yes Does patient meet sepsis criteria?: No System Inflammatory Response Syndrome: Not Applicable Sepsis Protocol: For patient's 13 years and over: Temp is 96.8 and below OR 101 and greater Pulse >90 BPM Resp >20/minute Acutely Altered Mental Status Are patient's symptoms suggestive of a new infection, such as: -Pneumonia -Skin, Soft Tissue -Endocarditis -UTI -Bone, Joint Infection -Implantable Device -Acute Abdominal Infection -Wound Infection -Meningitis -Blood Stream Catheter Infection -Unknown Skin Complaint Exam - Skin/Soft Tissue Complaint/Exam Onset/Duration: 3 days Symptoms Are: Still present Timing: Constant Initial Severity: Mild Current Severity: Moderate Location: Left foot Character: Reports: Painful Associated Signs and Symptoms: Reports: Tenderness Related History: Denies: Recent trauma Recent Exposure to Others w/Similar Symptoms: No Skin Findings: Present: Other (left dorsum of foot wound with minimal drainage. Tender to palpation no obvious redness.) Review of Systems - Review Of Systems Constitutional: Reports: No symptoms Eyes: Reports: No symptoms Ears, Nose, Mouth, Throat: Reports: No symptoms Respiratory: Reports: No symptoms Cardiac: Reports: No symptoms GI: Reports: No symptoms : Reports: No symptoms Musculoskeletal: Reports: No symptoms Skin: Reports: Rash, Other (Minimal drainage ) Neurological: Reports: Anxiety Endocrine: Reports: No symptoms Hematologic/Lymphatic: Reports: No symptoms All Other Systems: Reviewed and Negative Past Medical History - Past Medical History Previously Healthy: Yes Endocrine: Reports: None Cardiovascular: Reports: Hypertension Respiratory: Reports: None Hematological: Reports: None Gastrointestinal: Reports: GERD Genitourinary: Reports: None Neuro/Psych: Reports: Anxiety, Depression Musculoskeletal: Reports: Arthritis, Joint Pain, Other (foot infection ) Cancer: Reports: None Last Menstrual Period: last year Other Pertinent Past Medical History: Osteoporosis - Surgical History General Surgical History: Reports: Tubal ligation, Orthopedic ( CARPAL TUNNEL, Left foot surgery ) - Family History Family History: Reports: Unknown - Social History Smoking Status: Former smoker Hx Substance Use: No Alcohol Screening: None - Immunizations Tetanus Shot up to Date: Yes Influenza Vaccine within 12 Months: No Pneumococcal Vaccine up to Date: No Physical Exam - Physical Exam Appearance: Well-appearing (but unkempt ) Ill-appearing: Mild Pain Distress: Mild Neck: Supple Respiratory: Airway patent, Breath sounds clear Cardiovascular: RRR, Pulses normal, No rub, No murmur Musculoskeletal: Normal strength, ROM intact, No edema, No calf tenderness Skin: Warm, Dry Neurological: Sensation intact, Motor intact, Alert, Oriented Psychiatric: Anxious Critical Care Note - Critical Care Note Total Time (mins): 0 Course - Course Orders, Labs, Meds: Orders Category Date Time Status Acetaminophen [Tylenol] MEDS 04/22/18 19:38 Discontinued 1,000 mg PO ONCE STA Sulfamethoxazole/Trimethoprim [Bactrim Ds 800/160 mg] MEDS 04/22/18 19:38 Discontinued 1 tab PO ONCE STA Medications Discontinued Medications Generic Name Dose Route Start Last Admin Trade Name Mosesq PRN Reason Stop Dose Admin Acetaminophen 1,000 mg 04/22/18 19:38 Tylenol PO 04/22/18 19:39 ONCE STA Trimethoprim/Sulfamethoxazole 1 tab 04/22/18 19:38 Bactrim Ds 800/160 Mg PO 04/22/18 19:39 ONCE STA Vital Signs: Temp Pulse Resp BP Pulse Ox 04/22/18 18:53 98.8 F 86 18 135/95 H 97 Departure - Departure Time of Disposition: 20:10 Disposition: HOME SELF-CARE Discharge Problem: Chronic wound of extremity Instructions: Chronic Wounds (ED) Condition: Stable Pt referred to PMD for follow-up: Yes IPMP verified?: No Additional Instructions: Take Antibiotics until gone Take Tylenol as needed for pain Follow up with PCP in 3 days Prescriptions: Sulfamethoxazole/Trimethoprim [Bactrim Ds 800/160 mg] 1 tab PO Q12HR #20 tablet Methylprednisolone [Medrol Dosepak] 4 mg PO DIRECTED #1 pkg Allergies/Adverse Reactions: Allergies doxycycline Allergy (Mild, Verified 04/22/18 18:58) sick to stomach tramadol Allergy (Mild, Verified 04/22/18 18:58) nausea Patient to notify drugstore wheat Allergy (Mild, Verified 04/22/18 18:58) n/v clindamycin Adverse Reaction (Verified 04/22/18 18:58) naproxen Adverse Reaction (Verified 04/22/18 18:58) Penicillins Adverse Reaction (Verified 04/22/18 18:58) [place] Adverse Reaction (Uncoded 04/22/18 18:58) Home Medications: Ambulatory Orders Acetaminophen [Tylenol] 500 mg PO Q6H PRN #30 tablet 06/23/16 Gabapentin 300 mg PO TID 12/19/17 Ondansetron [Zofran Odt] 4 mg PO BID #30 tab.rapdis 03/17/18 Sulfamethoxazole/Trimethoprim [Bactrim Ds 800/160 mg] 1 tab PO BID #7 tablet 05/18 Methylprednisolone [Medrol Dosepak] 4 mg PO DIRECTED #1 pkg 04/22/18 Sulfamethoxazole/Trimethoprim [Bactrim Ds 800/160 mg] 1 tab PO Q12HR #20 tablet 04/22/18 Disposition Discussed With: Patient
== END 2018-04-22 20:16 | disposition home or self-care (01) ==
LOC: ED 18:52
DX: S91.302A Unspecified open wound, left foot, initial encounter (principal); M79.672 Pain in left foot
CPT/HCPCS: 99282

== ENCOUNTER 2018-04-26 13:54 | Emergency (ER) ==
[2018-04-26 14:02] VITALS: BP 144/95; TEMP 98.5; BMI 27.1
--- NOTE | 2018-04-26 14:09 | ED.PDOC ---
General ED Provider: Dr. CT MACK Chief Complaint: Rash Stated Complaint: RASH Time Seen by Physician: 14:00 (RASH SEEN WITH RN) Mode of Arrival: Walk-In Information Source: Patient Exam Limitations: No limitations [facility] and Triage Documentation Reviewed and Agree: Yes Does patient meet sepsis criteria?: Yes If yes, has appropriate treatment been initiated?: No System Inflammatory Response Syndrome: Not Applicable Sepsis Protocol: For patient's 13 years and over: Temp is 96.8 and below OR 101 and greater Pulse >90 BPM Resp >20/minute Acutely Altered Mental Status Are patient's symptoms suggestive of a new infection, such as: -Pneumonia -Skin, Soft Tissue -Endocarditis -UTI -Bone, Joint Infection -Implantable Device -Acute Abdominal Infection -Wound Infection -Meningitis -Blood Stream Catheter Infection -Unknown Skin Complaint Exam - Skin Rash/Itching Complaint/Exam Onset/Duration: 1 DAY Symptoms Are: Still present Initial Severity: Mild Current Severity: Mild Potential Exposures: Reports: Unknown Prior Treatment: NONE Aggravating: Reports: None Alleviating: Reports: None Associated Signs and Symptoms: Denies: Difficulty breathing, Fever, Chills Related History: Similar episode Skin Findings: Present: Urticaria Differential Diagnoses: Allergic Reaction Review of Systems - Review Of Systems Constitutional: Reports: No symptoms Eyes: Reports: No symptoms Ears, Nose, Mouth, Throat: Reports: No symptoms Respiratory: Reports: No symptoms Cardiac: Reports: No symptoms GI: Reports: No symptoms : Reports: No symptoms Musculoskeletal: Reports: No symptoms Skin: Reports: Rash (PURTIC RASH ARMS, LEGS AND CHEST) Neurological: Reports: No symptoms Endocrine: Reports: No symptoms Hematologic/Lymphatic: Reports: No symptoms All Other Systems: Reviewed and Negative Past Medical History - Past Medical History Previously Healthy: Yes Endocrine: Reports: None Cardiovascular: Reports: Hypertension Respiratory: Reports: None Hematological: Reports: None Gastrointestinal: Reports: GERD Genitourinary: Reports: None Neuro/Psych: Reports: Anxiety, Depression Musculoskeletal: Reports: Arthritis, Joint Pain, Other (foot infection ) Cancer: Reports: None Last Menstrual Period: n/a Other Pertinent Past Medical History: Osteoporosis - Surgical History General Surgical History: Reports: Tubal ligation, Orthopedic ( CARPAL TUNNEL, Left foot surgery ) - Family History Family History: Reports: Unknown - Social History Smoking Status: Former smoker Hx Substance Use: No Alcohol Screening: None - Immunizations Influenza Vaccine within 12 Months: No Pneumococcal Vaccine up to Date: No Physical Exam - Physical Exam Appearance: Well-appearing, No pain distress, Well-nourished Eyes: HECTOR, EOMI, Conjunctiva clear ENT: Ears normal, Nose normal, Oropharynx normal Respiratory: Airway patent, Breath sounds clear, Breath sounds equal, Respirations nonlabored Cardiovascular: RRR, Pulses normal, No rub, No murmur GI/: Soft, Nontender, No masses, Bowel sounds normal, No Organomegaly Musculoskeletal: Normal strength, ROM intact, No edema, No calf tenderness Skin: Warm, Dry (URTICARIAL RASH ARMS , LEGS AND CHEST) Neurological: Sensation intact, Motor intact, Reflexes intact, Cranial nerves intact, Alert, Oriented Psychiatric: Affect appropriate, Mood appropriate Critical Care Note - Critical Care Note Total Time (mins): 0 Course - Course Vital Signs: Temp Pulse Resp BP Pulse Ox 04/26/18 13:58 98.5 F 97 H 16 144/95 H 97 Departure - Departure Time of Disposition: 14:08 Disposition: HOME SELF-CARE Discharge Problem: Pruritic rash, Rash in adult Instructions: Acute Rash (ED) Condition: Good Pt referred to PMD for follow-up: Yes IPMP verified?: No Additional Instructions: Please call your Family Physician as soon as possible to schedule a follow-up appointment. Allergies/Adverse Reactions: Allergies doxycycline Allergy (Mild, Verified 04/22/18 18:58) sick to stomach tramadol Allergy (Mild, Verified 04/22/18 18:58) nausea Patient to notify drugstore wheat Allergy (Mild, Verified 04/22/18 18:58) n/v clindamycin Adverse Reaction (Verified 04/22/18 18:58) naproxen Adverse Reaction (Verified 04/22/18 18:58) Penicillins Adverse Reaction (Verified 04/22/18 18:58) Sauerkraut Adverse Reaction (Uncoded 04/22/18 18:58) Home Medications: Ambulatory Orders Acetaminophen [Tylenol] 500 mg PO Q6H PRN #30 tablet 06/23/16 Gabapentin 300 mg PO TID 12/19/17 Ondansetron [Zofran Odt] 4 mg PO BID #30 tab.rapdis 03/17/18 Sulfamethoxazole/Trimethoprim [Bactrim Ds 800/160 mg] 1 tab PO BID #7 tablet 05/18 Methylprednisolone [Medrol Dosepak] 4 mg PO DIRECTED #1 pkg 04/22/18 Sulfamethoxazole/Trimethoprim [Bactrim Ds 800/160 mg] 1 tab PO Q12HR #20 tablet 04/22/18
== END 2018-04-26 14:18 | disposition home or self-care (01) ==
LOC: ED 13:54
DX: R21 Rash and other nonspecific skin eruption (principal); L29.9 Pruritus, unspecified
CPT/HCPCS: 99282

== ENCOUNTER 2018-05-01 10:43 | Emergency (ER) ==
[2018-05-01 10:52] VITALS: BP 158/102; TEMP 97.7; BMI 26.9
--- NOTE | 2018-05-01 11:16 | DI ---
Exam: Single view of the pelvis. Comparison: CT abdomen pelvis performed 03/15/2018. Reason for exam: Fall with pain. FINDINGS: The pelvic ring appears intact. Moderate to severe degenerative disease is seen in the ri ght hip with sclerotic change and joint space loss with osteophyte formation. Impression: 1. No acute fracture is seen within the pelvic ring. 2. Moderate to severe degenerative disease in the right hip
--- NOTE | 2018-05-01 11:19 | DI ---
EXAM: Right hip two-view HISTORY: Fall and pain COMPARISON: None FINDINGS: The no fracture or dislocation. Severe osteoarthritis right hip with bone on bone appeara nce and osteophyte formation and subchondral sclerosis and cystic change. No focal soft tissue abnor mality. IMPERSSION: 1. No fracture or dislocation. 2. Severe osteoarthritis right hip with bone on bone appearance
--- NOTE | 2018-05-01 11:29 | ED.PDOC ---
General ED Provider: Dr. CT MACK Chief Complaint: Fall Stated Complaint: fall right hip pain Time Seen by Physician: 10:45 (c/o right hip pain after a fall denied other injuries ) Mode of Arrival: Walk-In Information Source: Patient Exam Limitations: No limitations [facility] Documentation Reviewed and Agree: Yes Does patient meet sepsis criteria?: No If yes, has appropriate treatment been initiated?: No System Inflammatory Response Syndrome: Not Applicable (May Nunez present at all times preset at all) Sepsis Protocol: For patient's 13 years and over: Temp is 96.8 and below OR 101 and greater Pulse >90 BPM Resp >20/minute Acutely Altered Mental Status Are patient's symptoms suggestive of a new infection, such as: -Pneumonia -Skin, Soft Tissue -Endocarditis -UTI -Bone, Joint Infection -Implantable Device -Acute Abdominal Infection -Wound Infection -Meningitis -Blood Stream Catheter Infection -Unknown Musculoskeletal Complaint Exam - Hip/Pelvis Complaint/Exam Location of Pain: Reports: Right, Hip Mechanism of Injury: Reports: Trauma (fall) Onset/Duration: 1 day Symptoms Are: Still present Initial Severity: Mild Current Severity: Mild Location: Reports: Discrete Character: Reports: Aching Aggravating: Reports: Movement Alleviating: Reports: Rest Associated Signs and Symptoms: Denies: Swelling, Redness, Bruising, Fever, Weakness, Dizziness, Syncope, Abdominal pain, Knee pain Related History: Reports: Similar episode Able to Bear Weight: Yes Septic Arthritis Risk Factors: Reports: None Related Surgical History: Reports: None Range of Motion Limited In: Absent: Flexion, Extension, Abduction, Adduction, Internal rotation, External rotation Differential Diagnoses: Sprain, Strain Review of Systems - Review Of Systems Constitutional: Reports: No symptoms Eyes: Reports: No symptoms Ears, Nose, Mouth, Throat: Reports: No symptoms Respiratory: Reports: No symptoms Cardiac: Reports: No symptoms GI: Reports: No symptoms : Reports: No symptoms Musculoskeletal: Reports: Other (right hip pain) Skin: Reports: No symptoms Neurological: Reports: No symptoms Endocrine: Reports: No symptoms Hematologic/Lymphatic: Reports: No symptoms All Other Systems: Reviewed and Negative Past Medical History - Past Medical History Previously Healthy: Yes Endocrine: Reports: None Cardiovascular: Reports: Hypertension Respiratory: Reports: None Hematological: Reports: None Gastrointestinal: Reports: GERD Genitourinary: Reports: None Neuro/Psych: Reports: Anxiety, Depression Musculoskeletal: Reports: Arthritis, Joint Pain, Other (foot infection ) Cancer: Reports: None Last Menstrual Period: menopause Other Pertinent Past Medical History: Osteoporosis - Surgical History General Surgical History: Reports: Tubal ligation, Orthopedic ( CARPAL TUNNEL, Left foot surgery ) - Family History Family History: Reports: Unknown - Social History Smoking Status: Former smoker Hx Substance Use: No Alcohol Screening: None - Immunizations Influenza Vaccine within 12 Months: No Pneumococcal Vaccine up to Date: No Physical Exam - Physical Exam Appearance: Well-appearing, No pain distress, Well-nourished Eyes: HECTOR, EOMI, Conjunctiva clear ENT: Ears normal, Nose normal, Oropharynx normal Respiratory: Airway patent, Breath sounds clear, Breath sounds equal, Respirations nonlabored Cardiovascular: RRR, Pulses normal, No rub, No murmur GI/: Soft, Nontender, No masses, Bowel sounds normal, No Organomegaly Musculoskeletal: Normal strength, ROM intact, No edema, No calf tenderness Skin: Warm, Dry, Normal color Neurological: Sensation intact, Motor intact, Reflexes intact, Cranial nerves intact, Alert, Oriented Psychiatric: Affect appropriate, Mood appropriate Interpretation - Radiology Interpretation Radiology Interpretation By: Radiologist Critical Care Note - Critical Care Note Total Time (mins): 0 Course - Course Orders, Labs, Meds: Orders Category Date Time Status HIP, RIGHT 2 VIEWS Stat RADS 05/01/18 10:52 Completed PELVIS 1 OR 2 VIEWS Stat RADS 05/01/18 10:52 Completed Vital Signs: Temp Pulse Resp BP Pulse Ox 05/01/18 10:44 97.7 F 74 20 158/102 H 98 Departure - Departure Time of Disposition: 12:00 Disposition: HOME SELF-CARE Discharge Problem: Sprain of right hip Qualifiers: Encounter type: initial encounter Qualified Code(s): S73.101A - Unspecified sprain of right hip, initial encounter Instructions: Hip Sprain (ED) Condition: Good Pt referred to PMD for follow-up: Yes IPMP verified?: No Additional Instructions: Please call your Family Physician as soon as possible to schedule a follow-up appointment. Allergies/Adverse Reactions: Allergies doxycycline Allergy (Mild, Verified 05/01/18 10:50) sick to stomach tramadol Allergy (Mild, Verified 05/01/18 10:50) nausea Patient to notify drugstore wheat Allergy (Mild, Verified 05/01/18 10:50) n/v clindamycin Adverse Reaction (Verified 05/01/18 10:50) naproxen Adverse Reaction (Verified 05/01/18 10:50) Penicillins Adverse Reaction (Verified 05/01/18 10:50) Opheliaaut Adverse Reaction (Uncoded 04/22/18 18:58) Home Medications: Ambulatory Orders Acetaminophen [Tylenol] 500 mg PO Q6H PRN #30 tablet 06/23/16 Gabapentin 300 mg PO TID 12/19/17
== END 2018-05-01 11:36 | disposition home or self-care (01) ==
LOC: ED 10:43
DX: S73.101A Unspecified sprain of right hip, initial encounter (principal); W19.XXXA Unspecified fall, initial encounter
CPT/HCPCS: 99283

== ENCOUNTER 2018-05-04 08:38 | Outpatient (CLI) ==
[2018-05-04 08:55] VITALS: BMI 26.4
== END 2018-05-04 08:42 | disposition critical access hospital (66) ==
LOC: AMBL 08:38
PROVIDERS: ATTEND Emergency Medicine
DX: M25.551 Pain in right hip (principal); F41.9 Anxiety disorder, unspecified; V09.9XXA Pedestrian injured in unspecified transport accident, initial encounter

== ENCOUNTER 2018-05-04 08:47 | Emergency (ER) ==
[2018-05-04 08:55] VITALS: BP 199/95; TEMP 98.5; BMI 26.4
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
[2018-05-04] MEDS ORDERED: TYLENOL PO STA (10:46)
== END 2018-05-04 12:42 | disposition home or self-care (01) ==
LOC: ED 08:47
DX: S39.012A Strain of muscle, fascia and tendon of lower back, initial encounter (principal); S70.01XA Contusion of right hip, initial encounter; S70.11XA Contusion of right thigh, initial encounter; V09.9XXA Pedestrian injured in unspecified transport accident, initial encounter; M16.11 Unilateral primary osteoarthritis, right hip
CPT/HCPCS: 36415; 80053; 80306; 81001; 85025; 99283

== ENCOUNTER 2018-05-07 10:21 | Emergency (ER) ==
[2018-05-07 10:27] VITALS: BP 147/114; TEMP 98.6; BMI 26.9
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
[2018-05-07] MEDS ORDERED: VISTARIL INJ IM STA (11:37)
== END 2018-05-07 15:08 | disposition home or self-care (01) ==
LOC: ED 10:21
DX: F41.9 Anxiety disorder, unspecified (principal); M16.11 Unilateral primary osteoarthritis, right hip; T14.8XXA Other injury of unspecified body region, initial encounter; M54.2 Cervicalgia; M54.9 Dorsalgia, unspecified; R53.1 Weakness; I10 Essential (primary) hypertension
CPT/HCPCS: 36415; 80053; 81001; 85025; 96372; 99283

== ENCOUNTER 2018-05-17 13:27 | Outpatient (CLI) ==
--- NOTE | 2018-05-17 15:04 | DI ---
EXAM: Three views of the lumbar spine. History: Lower back pain. Comparison: Lumbar spine CT 05/04/2018 Findings: No acute fracture or subluxation of the lumbar spine. Mild to moderate disc space narrowi ng at L5-S1. Mild disc space narrowing seen elsewhere. A few small anterior osteophytes. Impression: 1. No acute osseous abnormality of the lumbar spine. 2. Mild to moderate degenerative disc disease at L5-S1
--- NOTE | 2018-05-17 15:06 | DI ---
EXAM: Three views of the left foot. History: Left foot pain. Comparison: Left foot radiograph 03/30/2018 Findings: No acute fracture or dislocation. No abnormal calcifications or radiopaque foreign bodies . Moderate to severe narrowing of the first tarsometatarsal joint with marginal sclerosis and osteop hyte formation. Diffuse subcutaneous edema. Impression: 1. No acute osseous abnormality. 2. Moderate to severe osteoarthritis of the first tarsometatarsal joint. 3. Diffuse subcutaneous edema
== END 2018-05-17 13:28 | disposition home or self-care (01) ==
LOC: RAD 13:27
PROVIDERS: ATTEND Family Medicine
DX: M79.672 Pain in left foot (principal); M54.5 Low back pain; Z90.5 Acquired absence of kidney; G62.89 Other specified polyneuropathies
CPT/HCPCS: 36415; 80053; 82607; 82746

== ENCOUNTER 2018-05-17 14:03 | Emergency (ER) ==
[2018-05-17 14:13] VITALS: BP 125/82; TEMP 97.5; BMI 26.6
--- NOTE | 2018-05-17 14:29 | ED.PDOC ---
General ED Provider: Dr. CT MACK Chief Complaint: Wound Check Stated Complaint: left foot wound check Time Seen by Physician: 14:10 (orlando present all times ) Mode of Arrival: Walk-In Information Source: Patient Exam Limitations: No limitations [facility] Nursing and Triage Documentation Reviewed and Agree: Yes Does patient meet sepsis criteria?: No System Inflammatory Response Syndrome: Not Applicable Sepsis Protocol: For patient's 13 years and over: Temp is 96.8 and below OR 101 and greater Pulse >90 BPM Resp >20/minute Acutely Altered Mental Status Are patient's symptoms suggestive of a new infection, such as: -Pneumonia -Skin, Soft Tissue -Endocarditis -UTI -Bone, Joint Infection -Implantable Device -Acute Abdominal Infection -Wound Infection -Meningitis -Blood Stream Catheter Infection -Unknown Musculoskeletal Complaint Exam - Ankle/Foot Complaint/Exam Location of Injury: Reports: Left, Foot Mechanism of Injury: Reports: No known trauma Onset/Duration: 2 weeks Initial Severity: Mild Current Severity: None Alleviating: Reports: None Aggravating: Reports: None Able to Bear Weight: Yes Associated Signs and Symptoms: Denies: Swelling, Redness, Bruising, Fever, Weakness, Numbness, Tingling Gout Risk Factors: Reports: None Related Surgical History: Reports: None Lower Extremity Findings: Absent: Swelling, Ecchymosis, Abnormal contour, Rotation, Ligamentous instability, Laceration, Erythema, Warmth, Blisters, Other joint pain, Foreign body, Tenderness, Limited range of motion Review of Systems - Review Of Systems Constitutional: Reports: No symptoms Eyes: Reports: No symptoms Ears, Nose, Mouth, Throat: Reports: No symptoms Respiratory: Reports: No symptoms Cardiac: Reports: No symptoms GI: Reports: No symptoms : Reports: No symptoms Musculoskeletal: Reports: No symptoms Skin: Reports: No symptoms Neurological: Reports: No symptoms Endocrine: Reports: No symptoms Hematologic/Lymphatic: Reports: No symptoms All Other Systems: Reviewed and Negative Past Medical History - Past Medical History Previously Healthy: Yes Endocrine: Reports: None Cardiovascular: Reports: Hypertension Respiratory: Reports: None Hematological: Reports: None Gastrointestinal: Reports: GERD Genitourinary: Reports: None Neuro/Psych: Reports: Anxiety, Depression Musculoskeletal: Reports: Arthritis, Joint Pain, Other (foot infection ) Cancer: Reports: None Last Menstrual Period: n/a Other Pertinent Past Medical History: Osteoporosis - Surgical History General Surgical History: Reports: Tubal ligation, Orthopedic ( CARPAL TUNNEL, Left foot surgery ) - Family History Family History: Reports: Unknown - Social History Smoking Status: Former smoker Hx Substance Use: No Alcohol Screening: None - Immunizations Influenza Vaccine within 12 Months: No Pneumococcal Vaccine up to Date: No Physical Exam - Physical Exam Appearance: Well-appearing, No pain distress, Well-nourished Eyes: HECTOR, EOMI, Conjunctiva clear ENT: Ears normal, Nose normal, Oropharynx normal Respiratory: Airway patent, Breath sounds clear, Breath sounds equal, Respirations nonlabored Cardiovascular: RRR, Pulses normal, No rub, No murmur GI/: Soft, Nontender, No masses, Bowel sounds normal, No Organomegaly Musculoskeletal: Normal strength, ROM intact, No edema, No calf tenderness Skin: Warm, Dry, Normal color Neurological: Sensation intact, Motor intact, Reflexes intact, Cranial nerves intact, Alert, Oriented Psychiatric: Affect appropriate, Mood appropriate Critical Care Note - Critical Care Note Total Time (mins): 0 Course - Course Vital Signs: Temp Pulse Resp BP Pulse Ox 05/17/18 14:06 97.5 F L 78 16 125/82 98 Departure - Departure Time of Disposition: 14:28 Disposition: HOME SELF-CARE Discharge Problem: Normal foot exam Instructions: Normal Exam (ED) Condition: Good Pt referred to PMD for follow-up: Yes IPMP verified?: No Additional Instructions: Please call your Family Physician as soon as possible to schedule a follow-up appointment. Allergies/Adverse Reactions: Allergies doxycycline Allergy (Mild, Verified 05/07/18 10:29) sick to stomach tramadol Allergy (Mild, Verified 05/07/18 10:29) nausea Patient to notify drugstore wheat Allergy (Mild, Verified 05/07/18 10:29) n/v clindamycin Adverse Reaction (Verified 05/07/18 10:29) naproxen Adverse Reaction (Verified 05/07/18 10:29) Penicillins Adverse Reaction (Verified 05/07/18 10:29) Sauerkraut Adverse Reaction (Uncoded 04/22/18 18:58) Home Medications: Ambulatory Orders Acetaminophen [Tylenol] 500 mg PO Q6H PRN #30 tablet 06/23/16 Gabapentin 300 mg PO TID 12/19/17
== END 2018-05-17 14:37 | disposition home or self-care (01) ==
LOC: ED 14:03
DX: S89.92XA Unspecified injury of left lower leg, initial encounter (principal); Z04.8 Encounter for examination and observation for other specified reasons
CPT/HCPCS: 36415; 80053; 82607; 82746; 99282

== ENCOUNTER 2018-05-18 14:50 | Emergency (ER) ==
[2018-05-18 14:56] VITALS: BP 115/79; TEMP 98.9; BMI 26.2
--- NOTE | 2018-05-18 17:39 | ED.PDOC ---
General ED Provider: Dr. JULIO PETIT Chief Complaint: Foot Pain/Injury Stated Complaint: patient is a 52 year old female who was seen here in the ER last night for left foot pain. Had x rays that were negative. He received Tramadol for the pain whe she was seen yesterday. Feels like there is something hin heel. Time Seen by Physician: 17:15 Mode of Arrival: Walk-In Information Source: Patient Primary Care Provider: ANNE MONTEZ Nursing and Triage Documentation Reviewed and Agree: Yes Does patient meet sepsis criteria?: No System Inflammatory Response Syndrome: Not Applicable Sepsis Protocol: For patient's 13 years and over: Temp is 96.8 and below OR 101 and greater Pulse >90 BPM Resp >20/minute Acutely Altered Mental Status Are patient's symptoms suggestive of a new infection, such as: -Pneumonia -Skin, Soft Tissue -Endocarditis -UTI -Bone, Joint Infection -Implantable Device -Acute Abdominal Infection -Wound Infection -Meningitis -Blood Stream Catheter Infection -Unknown Review of Systems - Review Of Systems Constitutional: Reports: No symptoms Eyes: Reports: No symptoms Ears, Nose, Mouth, Throat: Reports: No symptoms Respiratory: Reports: No symptoms Cardiac: Reports: No symptoms GI: Reports: No symptoms : Reports: No symptoms Musculoskeletal: Reports: Joint pain, Joint swelling, Muscle pain Skin: Reports: No symptoms Neurological: Reports: No symptoms Endocrine: Reports: No symptoms Hematologic/Lymphatic: Reports: No symptoms All Other Systems: Reviewed and Negative Past Medical History - Past Medical History Previously Healthy: Yes Endocrine: Reports: None Cardiovascular: Reports: Hypertension Respiratory: Reports: None Hematological: Reports: None Gastrointestinal: Reports: GERD Genitourinary: Reports: None Neuro/Psych: Reports: Anxiety, Depression Musculoskeletal: Reports: Arthritis, Joint Pain, Other (foot infection ) Cancer: Reports: None Last Menstrual Period: n/a Other Pertinent Past Medical History: Osteoporosis - Surgical History General Surgical History: Reports: Tubal ligation, Orthopedic ( CARPAL TUNNEL, Left foot surgery ) - Family History Family History: Reports: Unknown - Social History Smoking Status: Former smoker Hx Substance Use: No Alcohol Screening: None - Immunizations Influenza Vaccine within 12 Months: No Pneumococcal Vaccine up to Date: No Physical Exam - Physical Exam Appearance: Ill-appearing Ill-appearing: Mild Pain Distress: Moderate Neck: Supple Respiratory: Airway patent, Breath sounds clear, Breath sounds equal, Respirations nonlabored Cardiovascular: RRR, Pulses normal, No rub, No murmur GI/: Soft, Nontender, No masses, Bowel sounds normal, No Organomegaly Musculoskeletal: Normal strength, ROM intact, No calf tenderness (but tenderness on the dorsum of foot. ), Edema (left dorsum of foot ) Skin: Warm, Dry, Normal color Psychiatric: Anxious Critical Care Note - Critical Care Note Total Time (mins): 0 Course - Course Vital Signs: Temp Pulse Resp BP Pulse Ox 05/18/18 14:53 98.9 F 89 20 115/79 98 Departure - Departure Time of Disposition: 17:37 Disposition: HOME SELF-CARE Discharge Problem: Chronic foot pain Qualifiers: Laterality: left Qualified Code(s): M79.672 - Pain in left foot Instructions: Arthralgia (ED) Condition: Fair Pt referred to PMD for follow-up: Yes IPMP verified?: No Additional Instructions: Follow up with PCP in 3 days Continue home Tramadol as needed Keep foot elevated. NO weight bearing on the left foot Allergies/Adverse Reactions: Allergies doxycycline Allergy (Mild, Verified 05/18/18 14:56) sick to stomach tramadol Allergy (Mild, Verified 05/18/18 14:56) nausea Patient to notify drugstore wheat Allergy (Mild, Verified 05/18/18 14:56) n/v clindamycin Adverse Reaction (Verified 05/18/18 14:56) naproxen Adverse Reaction (Verified 05/18/18 14:56) Penicillins Adverse Reaction (Verified 05/18/18 14:56) Sauerkraut Adverse Reaction (Uncoded 04/22/18 18:58) Home Medications: Ambulatory Orders Acetaminophen [Tylenol] 500 mg PO Q6H PRN #30 tablet 06/23/16 Gabapentin 300 mg PO TID 12/19/17 Disposition Discussed With: Patient, Family
== END 2018-05-18 17:52 | disposition home or self-care (01) ==
LOC: ED 14:50
DX: M79.672 Pain in left foot (principal)
CPT/HCPCS: 99282

== ENCOUNTER 2018-05-27 11:17 | Emergency (ER) | payer MEDICAID, OTHER ==
[2018-05-27 11:23] VITALS: BP 147/96; TEMP 99; BMI 25.7
--- NOTE | 2018-05-27 11:35 | ED.PDOC ---
General ED Provider: Dr. CT MACK Chief Complaint: Back Pain Stated Complaint: low back pain Time Seen by Physician: 11:19 (present katherine ybarra RN) Mode of Arrival: Walk-In Information Source: Patient Exam Limitations: No limitations Nursing and Triage Documentation Reviewed and Agree: Yes Does patient meet sepsis criteria?: No System Inflammatory Response Syndrome: Not Applicable (DENIED INJURY ) Sepsis Protocol: For patient's 13 years and over: Temp is 96.8 and below OR 101 and greater Pulse >90 BPM Resp >20/minute Acutely Altered Mental Status Are patient's symptoms suggestive of a new infection, such as: -Pneumonia -Skin, Soft Tissue -Endocarditis -UTI -Bone, Joint Infection -Implantable Device -Acute Abdominal Infection -Wound Infection -Meningitis -Blood Stream Catheter Infection -Unknown Musculoskeletal Complaint Exam - Back Pain Complaint/Exam Mechanism of Injury: Reports: No known trauma Onset/Duration: 2 DAYS Symptoms Are: Resolved Timing: Intermittent Episodes Lasting: Hours Initial Severity: Mild Current Severity: None Character: Reports: Dull Aggravating: Reports: None Alleviating: Reports: None Associated Signs and Symptoms: Denies: Swelling, Redness, Bruising, Fever, Weakness, Numbness, Tingling, Abdominal pain, Flank pain, Bladder incontinence, Bowel incontinence, Weight loss, Pain with weight bearing Related History: Reports: Similar episode TAD Risk Factors: Reports: Hypertension AAA Risk Factors: Reports: Hypertension Cauda Equina Risk Factors: Reports: None Epidural Abcess Risk Factors: Reports: None Related Surgical History: Reports: None Focal Tenderness: No Paraspinal Muscle Tenderness: No Paraspinal Muscle Spasm: No Lordosis: No Kyphosis: No SLR Test: Right Negative, Left Negative Hip Motion Testing Pain: Right Negative, Left Negative Focal Weakness: Present: None Focal Sensory Loss: Present: None Differential Diagnoses: Strain, Sprain Review of Systems - Review Of Systems Constitutional: Reports: No symptoms Eyes: Reports: No symptoms Ears, Nose, Mouth, Throat: Reports: No symptoms Respiratory: Reports: No symptoms Cardiac: Reports: No symptoms GI: Reports: No symptoms : Reports: No symptoms Musculoskeletal: Reports: Back pain Skin: Reports: No symptoms Neurological: Reports: No symptoms Endocrine: Reports: No symptoms Hematologic/Lymphatic: Reports: No symptoms All Other Systems: Reviewed and Negative Past Medical History - Past Medical History Previously Healthy: Yes Endocrine: Reports: None Cardiovascular: Reports: Hypertension Respiratory: Reports: None Hematological: Reports: None Gastrointestinal: Reports: GERD Genitourinary: Reports: None Neuro/Psych: Reports: Anxiety, Depression Musculoskeletal: Reports: Arthritis, Joint Pain, Other (foot infection ) Cancer: Reports: None Last Menstrual Period: menopause Other Pertinent Past Medical History: Osteoporosis - Surgical History General Surgical History: Reports: Tubal ligation, Orthopedic ( CARPAL TUNNEL, Left foot surgery ) - Family History Family History: Reports: Unknown - Social History Smoking Status: Former smoker Hx Substance Use: No Alcohol Screening: None - Immunizations Influenza Vaccine within 12 Months: No Pneumococcal Vaccine up to Date: No Physical Exam - Physical Exam Appearance: Well-appearing, No pain distress, Well-nourished Eyes: HECTOR, EOMI, Conjunctiva clear ENT: Ears normal, Nose normal, Oropharynx normal Respiratory: Airway patent, Breath sounds clear, Breath sounds equal, Respirations nonlabored Cardiovascular: RRR, Pulses normal, No rub, No murmur GI/: Soft, Nontender, No masses, Bowel sounds normal, No Organomegaly Musculoskeletal: Normal strength, ROM intact, No edema, No calf tenderness Skin: Warm, Dry, Normal color (MULTIPLE INSECT BITES ON ARMS LEGS ) Neurological: Sensation intact, Motor intact, Reflexes intact, Cranial nerves intact, Alert, Oriented Psychiatric: Affect appropriate, Mood appropriate Critical Care Note - Critical Care Note Total Time (mins): 0 Course - Course Vital Signs: Temp Pulse Resp BP Pulse Ox 05/27/18 11:17 99 F 88 20 147/96 H 97 Departure - Departure Time of Disposition: 11:35 Disposition: HOME SELF-CARE Discharge Problem: Chronic lower back pain Qualifiers: Back pain laterality: unspecified Sciatica presence: without sciatica Qualified Code(s): M54.5 - Low back pain; G89.29 - Other chronic pain Instructions: Back Pain (ED) Condition: Good Pt referred to PMD for follow-up: Yes IPMP verified?: No Additional Instructions: Please call your Family Physician as soon as possible to schedule a follow-up appointment. Allergies/Adverse Reactions: Allergies doxycycline Allergy (Mild, Verified 05/27/18 11:24) sick to stomach tramadol Allergy (Mild, Verified 05/27/18 11:24) nausea Patient to notify drugstore wheat Allergy (Mild, Verified 05/27/18 11:24) n/v clindamycin Adverse Reaction (Verified 05/27/18 11:24) naproxen Adverse Reaction (Verified 05/27/18 11:24) Penicillins Adverse Reaction (Verified 05/27/18 11:24) Opheliaaut Adverse Reaction (Uncoded 04/22/18 18:58) Home Medications: Ambulatory Orders Acetaminophen [Tylenol] 500 mg PO Q6H PRN #30 tablet 06/23/16 Gabapentin 300 mg PO TID 12/19/17
== END 2018-05-27 11:39 | disposition home or self-care (01) ==
LOC: ED 11:17
DX: M54.5 Low back pain (principal); G89.29 Other chronic pain; I10 Essential (primary) hypertension
CPT/HCPCS: 99281

== ENCOUNTER 2018-05-28 13:35 | Outpatient (CLI) ==
[2018-05-27 11:23] VITALS: BMI 25.7
== END 2018-05-28 13:36 | disposition home or self-care (01) ==
LOC: RAD 13:35
PROVIDERS: ATTEND Family Medicine
DX: F41.1 Generalized anxiety disorder (principal); E66.9 Obesity, unspecified; M89.40 Other hypertrophic osteoarthropathy, unspecified site; Z00.01 Encounter for general adult medical examination with abnormal findings; M54.5 Low back pain; M54.16 Radiculopathy, lumbar region; M79.672 Pain in left foot; Z91.19 Patient's noncompliance with other medical treatment and regimen
CPT/HCPCS: 36415; 80053; 80061; 80306; 81001; 84439; 84443; 85025; 87086; 87186

== ENCOUNTER 2018-06-13 15:19 | Outpatient (CLI) ==
--- NOTE | 2018-06-13 16:35 | DI ---
EXAM: Two views of the right hip HISTORY: Right hip pain. COMPARISON: CT pelvis 05/04/2018 FINDINGS: There is severe narrowing and osteophyte formation with subchondral sclerosis and cystic ch jonel in the right hip. The adjacent osseous structures of the pelvis and right femur are normal. Th e soft tissues are normal. IMPRESSION: Severe degenerative disease of the right hip with no displaced fracture or dislocation.
== END 2018-06-13 15:20 | disposition home or self-care (01) ==
LOC: LAB 15:19
PROVIDERS: ATTEND Family Medicine
DX: N39.0 Urinary tract infection, site not specified (principal); M25.551 Pain in right hip; M79.604 Pain in right leg
CPT/HCPCS: 81001; 87086

== ENCOUNTER 2018-07-08 10:06 | Outpatient (CLI) | END 2018-07-08 10:07 | disposition home or self-care (01) | LOC: LAB 10:06 | PROVIDERS: ATTEND Family Medicine | DX: N30.00 Acute cystitis without hematuria (principal) | CPT/HCPCS: 81001 ==

== ENCOUNTER 2018-07-18 10:12 | Outpatient (CLI) | END 2018-07-18 10:13 | disposition home or self-care (01) | LOC: LAB 10:12 | PROVIDERS: ATTEND Family Medicine | DX: E78.5 Hyperlipidemia, unspecified (principal); I10 Essential (primary) hypertension; I25.10 Atherosclerotic heart disease of native coronary artery without angina pectoris; N18.1 Chronic kidney disease, stage 1; R73.9 Hyperglycemia, unspecified; F41.1 Generalized anxiety disorder; E66.9 Obesity, unspecified; M12.9 Arthropathy, unspecified | CPT/HCPCS: 36415; 80053; 80061; 81001; 84550; 85025; 86140; 87086 ==

== ENCOUNTER 2018-10-31 12:23 | Emergency (ER) ==
[2018-10-31 12:23] VITALS: BMI 25.7
[2018-10-31 12:27] VITALS: BP 134/92; TEMP 97.8
--- NOTE | 2018-10-31 14:51 | ED.PDOC ---
General ED Provider: Dr. RUBY CARLOS Chief Complaint: Hip Pain/Injury Stated Complaint: chronic rt hip pain. patient states she was scheduled to have right hip surgery yesterday however her surgeon cancelled the procedure when her PE revealed she had a rash on her buttocks. States she needs pain medication and was advised she should come to the ER when she contacted her physician for a prescription. States she has. Rx for tramadol at home. NO NSAID. Time Seen by Physician: 14:30 Mode of Arrival: Wheelchair Information Source: Patient Exam Limitations: No limitations Referred to ED by: PCP Nursing and Triage Documentation Reviewed and Agree: Yes Does patient meet sepsis criteria?: No System Inflammatory Response Syndrome: Not Applicable Sepsis Protocol: For patient's 13 years and over: Temp is 96.8 and below OR 101 and greater Pulse >90 BPM Resp >20/minute Acutely Altered Mental Status Are patient's symptoms suggestive of a new infection, such as: -Pneumonia -Skin, Soft Tissue -Endocarditis -UTI -Bone, Joint Infection -Implantable Device -Acute Abdominal Infection -Wound Infection -Meningitis -Blood Stream Catheter Infection -Unknown Musculoskeletal Complaint Exam - Hip/Pelvis Complaint/Exam Location of Pain: Reports: Right Mechanism of Injury: Reports: No known trauma Symptoms Are: Still present Initial Severity: Mild Character: Reports: Dull, Aching, Stiffness Aggravating: Reports: Movement, Weight bearing Alleviating: Reports: Rest Associated Signs and Symptoms: Reports: Swelling Related History: Reports: Similar episode Able to Bear Weight: Yes (difficuty) Septic Arthritis Risk Factors: Reports: None Related Surgical History: Reports: None Rotation: External Pelvis Palpation: Stable Hip/Pelvis Findings: Absent: Extremity shortened, Ecchymosis, Erythema, Blisters Tenderness: Present: Right, Greater Trochanter Range of Motion Limited In: Present: Flexion, Adduction, Internal rotation, External rotation NV Bundle Intact Distal to Injury: Yes Differential Diagnoses: Arthritis Review of Systems - Review Of Systems Constitutional: Reports: No symptoms Eyes: Reports: No symptoms Ears, Nose, Mouth, Throat: Reports: No symptoms Respiratory: Reports: No symptoms Cardiac: Reports: No symptoms GI: Reports: No symptoms : Reports: No symptoms Musculoskeletal: Reports: No symptoms, Joint pain, Muscle pain Skin: Reports: No symptoms Neurological: Reports: No symptoms Endocrine: Reports: No symptoms Hematologic/Lymphatic: Reports: No symptoms All Other Systems: Reviewed and Negative Past Medical History - Past Medical History Previously Healthy: Yes Endocrine: Reports: None Cardiovascular: Reports: Hypertension Respiratory: Reports: None Hematological: Reports: None Gastrointestinal: Reports: GERD Genitourinary: Reports: None Neuro/Psych: Reports: Anxiety, Depression Musculoskeletal: Reports: Arthritis, Joint Pain, Other (foot infection ) Cancer: Reports: None Last Menstrual Period: n/a Other Pertinent Past Medical History: Osteoporosis - Surgical History General Surgical History: Reports: Tubal ligation, Orthopedic ( CARPAL TUNNEL, Left foot surgery ) - Family History Family History: Reports: Unknown - Social History Smoking Status: Former smoker Hx Substance Use: No Alcohol Screening: None - Immunizations Influenza Vaccine within 12 Months: No Pneumococcal Vaccine up to Date: No Physical Exam - Physical Exam Appearance: Well-appearing, No pain distress, Well-nourished Ill-appearing: None Pain Distress: None Eyes: HECTOR, EOMI, Conjunctiva clear ENT: Ears normal, Nose normal, Oropharynx normal Respiratory: Airway patent, Breath sounds clear, Breath sounds equal, Respirations nonlabored Cardiovascular: RRR, Pulses normal, No rub, No murmur GI/: Soft, Nontender, No masses, Bowel sounds normal, No Organomegaly Musculoskeletal: Normal strength, ROM intact, No edema, No calf tenderness Skin: Warm, Dry, Normal color Neurological: Sensation intact, Motor intact, Reflexes intact, Cranial nerves intact, Alert, Oriented Psychiatric: Affect appropriate, Mood appropriate Critical Care Note - Critical Care Note Total Time (mins): 0 Course - Course Vital Signs: Temp Pulse Resp BP Pulse Ox 10/31/18 12:23 97.8 F 80 20 134/92 H 97 Departure - Departure Time of Disposition: 14:35 Disposition: HOME SELF-CARE Discharge Problem: Arthralgia, Osteoarthritis Instructions: Arthralgia (ED), Hip Pain (ED) Condition: Good Pt referred to PMD for follow-up: Yes IPMP verified?: No Additional Instructions: Ice to the areas as directed Avoid prolonged standing Folllow up pcp 1 wk Prescriptions: Diclofenac Sodium 50 mg PO BID #20 tablet. Allergies/Adverse Reactions: Allergies doxycycline Allergy (Mild, Verified 10/31/18 12:28) sick to stomach wheat Allergy (Mild, Verified 10/31/18 12:28) n/v clindamycin Adverse Reaction (Verified 10/31/18 12:28) naproxen Adverse Reaction (Verified 10/31/18 12:28) Penicillins Adverse Reaction (Verified 10/31/18 12:28) Nancy Adverse Reaction (Uncoded 04/22/18 18:58) Home Medications: Ambulatory Orders Acetaminophen [Tylenol] 500 mg PO Q6H PRN #30 tablet 06/23/16 Gabapentin 300 mg PO TID 12/19/17 Diclofenac Sodium 50 mg PO BID #20 tablet. 10/31/18 Disposition Discussed With: Patient
== END 2018-10-31 15:05 | disposition home or self-care (01) ==
LOC: ED 12:23
DX: M25.551 Pain in right hip (principal); G89.29 Other chronic pain; I10 Essential (primary) hypertension; M19.90 Unspecified osteoarthritis, unspecified site
CPT/HCPCS: 99283

== ENCOUNTER 2019-02-24 19:23 | Emergency (ER) ==
[2019-02-24 19:31] VITALS: BP 128/86; TEMP 98.9
--- NOTE | 2019-02-24 20:40 | CT ---
Exam: CT of the right ankle without contrast History: Fall with injury and pain Technique: [address] right ankle with multiplanar reformations FINDINGS: The distal tibia, fibula, talus and hind foot are intact. No acute bony or articular abno rmalities are seen. There is spurring on the Achilles surface of the calcaneus measuring 8 mm. Spur ring on the plantar surface of the calcaneus measuring 6 mm. No surrounding soft tissue abnormality. Impression: 1. No acute abnormality of the ankle
--- NOTE | 2019-02-24 20:41 | CT ---
Exam: CT of the right foot without contrast History: Trauma and pain Technique: [address] of the right foot with multiplanar reformations FINDINGS: Spurring on the Achilles and plantar surfaces of the calcaneus. No acute bony or articula r abnormalities of the foot. No soft tissue abnormalities of significance. Impression: 1. No acute findings of the right foot.
--- NOTE | 2019-02-24 20:42 | CT ---
Exam: CT pelvis without contrast History: Injury and pain Technique: [address] bony pelvis with multiplanar reformations FINDINGS: The pelvic ring is intact. Advanced osteoarthritic change of the right hip with caudal mi gration. The femoral hips are intact. No acute soft tissue abnormalities are seen. Colonic diverti culosis of the sigmoid. Impression: 1. Advanced osteoarthritic change of the right hip. 2. No acute findings of the bony pelvis or femoral hips 3. Incidental colonic diverticulosis
--- NOTE | 2019-02-24 20:43 | CT ---
EXAM: CT of the lumbar spine without contrast History: Lower back trauma. Technique: Multiplanar CT images through the lumbar spine were obtained without the administration o f IV contrast Findings: Atrophic right kidney. No acute fracture or subluxation of the lumbar spine. Mild to moderate multilevel disc space narrowi ng with small osteophytes. Bony spinal canal is not significantly compromised. No significant bony neural foraminal narrowing. Impression: No acute osseous abnormality of the lumbar spine
[2019-02-24] MEDS ORDERED: NORCO 7.5-325 PO STA (20:45)
--- NOTE | 2019-02-24 20:48 | ED.PDOC ---
General ED Provider: Dr. RUBY LARA-ER Chief Complaint: Fall Stated Complaint: i fell aNd hurt my hip and my ankle Time Seen by Physician: 19:30 Mode of Arrival: Walk-In Information Source: Patient Exam Limitations: No limitations Nursing and Triage Documentation Reviewed and Agree: Yes Does patient meet sepsis criteria?: No System Inflammatory Response Syndrome: Not Applicable Sepsis Protocol: For patient's 13 years and over: Temp is 96.8 and below OR 101 and greater Pulse >90 BPM Resp >20/minute Acutely Altered Mental Status Are patient's symptoms suggestive of a new infection, such as: -Pneumonia -Skin, Soft Tissue -Endocarditis -UTI -Bone, Joint Infection -Implantable Device -Acute Abdominal Infection -Wound Infection -Meningitis -Blood Stream Catheter Infection -Unknown Trauma/Injury Complaint Exam - Trauma Complaint/Exam Location of Pain or Injury: Reports: RLE Mechanism of Injury: Reports: Fall Symptoms Are: Still present Initial Severity: Mild Current Severity: Mild Character: Reports: Aching Aggravating: Reports: Weight-bearing Associated Signs and Symptoms: Denies: LOC, Confusion, Memory loss, Lethargy, Vomiting, Bleeding, Bruising, Swelling, Extremity disuse, Painful respiration, Hoarseness, Dysphagia, Hemoptysis, Significant blood loss : No Compartment Syndrome Risk Factors: Present: Pain Review of Systems - Review Of Systems Constitutional: Reports: No symptoms Eyes: Reports: No symptoms Ears, Nose, Mouth, Throat: Reports: No symptoms Respiratory: Reports: No symptoms Cardiac: Reports: No symptoms GI: Reports: No symptoms : Reports: No symptoms Musculoskeletal: Reports: Joint pain, Muscle pain Skin: Reports: No symptoms Neurological: Reports: No symptoms Endocrine: Reports: No symptoms Hematologic/Lymphatic: Reports: No symptoms All Other Systems: Reviewed and Negative Past Medical History - Past Medical History Previously Healthy: Yes Endocrine: Reports: None Cardiovascular: Reports: Hypertension Respiratory: Reports: None Hematological: Reports: None Gastrointestinal: Reports: GERD Genitourinary: Reports: None Neuro/Psych: Reports: Anxiety, Depression Musculoskeletal: Reports: Arthritis, Joint Pain, Other (foot infection ) Cancer: Reports: None Last Menstrual Period: menopause Other Pertinent Past Medical History: Osteoporosis - Surgical History General Surgical History: Reports: Tubal ligation, Orthopedic ( CARPAL TUNNEL, Left foot surgery ) - Family History Family History: Reports: Unknown - Social History Smoking Status: Former smoker Hx Substance Use: No Alcohol Screening: None - Immunizations Influenza Vaccine within 12 Months: No Pneumococcal Vaccine up to Date: No Physical Exam - Physical Exam Appearance: Well-appearing, No pain distress, Well-nourished Pain Distress: Moderate Eyes: HECTOR, EOMI, Conjunctiva clear ENT: Ears normal, Nose normal, Oropharynx normal Neck: Supple Respiratory: Airway patent, Breath sounds clear, Breath sounds equal, Respirations nonlabored Cardiovascular: RRR, Pulses normal, No rub, No murmur GI/: Soft, Nontender, No masses, Bowel sounds normal, No Organomegaly Musculoskeletal: Limited ROM Skin: Warm Neurological: Sensation intact Psychiatric: Affect appropriate, Mood appropriate Interpretation - Radiology Interpretation Radiology Interpretation By: Radiologist Radiology Results: Negative Exam Interpreted: CT Scan Critical Care Note - Critical Care Note Total Time (mins): 0 Course - Course Orders, Labs, Meds: Orders Category Date Time Status Hydrocodone Bit/Acetaminophen [[place] 7.5-325] MEDS 02/24/19 20:45 Stat 1 tab PO ONCE STA CT ANKLE RIGHT WO CONTRAST Stat RADS 02/24/19 19:[address] FOOT RIGHT WITHOUT CONTRAST Stat RADS 02/24/19 19:[address] LUMBAR SPINE W/O CONTRAST Stat RADS 02/24/19 19:[address] PELVIS W/O CONTRAST Stat RADS 02/24/19 19:34 Completed Vital Signs: Temp Pulse Resp BP Pulse Ox 02/24/19 19:24 98.9 F 105 H 20 128/86 95 Departure - Departure Time of Disposition: 20:47 Disposition: HOME SELF-CARE Discharge Problem: Falls Osteoarthritis of right hip Qualifiers: Osteoarthritis type: unspecified Qualified Code(s): M16.11 - Unilateral primary osteoarthritis, right hip Instructions: Hip Sprain (ED) Condition: Good Pt referred to PMD for follow-up: Yes IPMP verified?: No Additional Instructions: norco 7.5mg q 4hrs prn pain #10---f/u with pcp Allergies/Adverse Reactions: Allergies doxycycline Allergy (Mild, Verified 02/24/19 19:32) sick to stomach wheat Allergy (Mild, Verified 02/24/19 19:32) n/v clindamycin Adverse Reaction (Verified 02/24/19 19:32) naproxen Adverse Reaction (Verified 02/24/19 19:32) Penicillins Adverse Reaction (Verified 02/24/19 19:32) Nancy Adverse Reaction (Uncoded 04/22/18 18:58) Home Medications: Ambulatory Orders Acetaminophen [Tylenol] 500 mg PO Q6H PRN #30 tablet 06/23/16 Gabapentin 300 mg PO TID 12/19/17 Diclofenac Sodium 50 mg PO BID #20 tablet. 10/31/18 Disposition Discussed With: Patient
== END 2019-02-24 21:24 | disposition home or self-care (01) ==
LOC: ED 19:23
DX: S79.911A Unspecified injury of right hip, initial encounter (principal); S99.911A Unspecified injury of right ankle, initial encounter; M16.11 Unilateral primary osteoarthritis, right hip; W19.XXXA Unspecified fall, initial encounter
CPT/HCPCS: 99283

== ENCOUNTER 2022-08-30 14:34 | Observation (INO) ==
[2022-08-30 14:40] VITALS: BMI 31.4
[2022-08-30] MEDS ORDERED: SODIUM CHLORIDE 1,000 ML IV STA (14:55)
[2022-08-30] MEDS ORDERED: TYLENOL PO ONE (14:55)
[2022-08-30] MEDS ORDERED: ZOFRAN 4 MG/2 ML IVP ONE (14:55)
--- NOTE | 2022-08-30 15:03 | ED.PDOC ---
General ED Provider: Dr. GIGI CAMPOS MD Chief Complaint: Nausea/Vomiting Stated Complaint: mild to mod NV and abdominal cramps w/ body aches today, dry cough, no fever, no rash, no hx cva, tripped and twisted the right foot earlier today, not dizzy Time Seen by Provider: 08/30/22 14:37 Mode of Arrival: Walk-In Information Source: Patient Primary Care Provider: DIVINA SOSA Nursing and Triage Documentation Reviewed and Agree: Yes Does patient meet sepsis criteria?: No System Inflammatory Response Syndrome: Not Applicable Sepsis Protocol: For patient's 13 years and over: Temp is 96.8 and below OR 101 and greater Pulse >90 BPM Resp >20/minute Acutely Altered Mental Status Are patient's symptoms suggestive of a new infection, such as: -Pneumonia -Skin, Soft Tissue -Endocarditis -UTI -Bone, Joint Infection -Implantable Device -Acute Abdominal Infection -Wound Infection -Meningitis -Blood Stream Catheter Infection -Unknown Review of Systems Review Of Systems Constitutional: Reports Weakness; Denies Fever Eyes: Denies Vision change Ears, Nose, Mouth, Throat: Reports Nose discharge; Denies Throat pain Respiratory: Reports Cough; Denies Short of air Cardiac: Denies Chest pain GI: Denies Abdominal pain : Denies Burning Musculoskeletal: Denies Back pain Skin: Denies Rash Neurological: Denies Cognitive dysfunction All Other Systems: Other [facility] Medical History (Updated 08/30/22 @ 16:38 by GIGI CAMPOS MD) Gastroesophageal reflux disease Hypertension Pneumonia Social History Smoking and tobacco status: Former smoker Substance use type: does not use Surgical History History of tubal ligation Female Reproductive History Menstrual Hx Hysterectomy: No Hx Tubal Ligation: No Physical Exam Physical Exam Appearance: Reports Ill-appearing Ill-appearing: Mild Pain Distress: Mild Eyes: Reports HECTOR, EOMI and Conjunctiva clear ENT: Reports Oropharynx normal Neck: Supple Respiratory: Reports Airway patent and Breath sounds clear Cardiovascular: Reports RRR GI/: Reports Soft and Nontender Musculoskeletal: Reports No calf tenderness Skin: Reports Warm and Dry Neurological: Reports Cranial nerves intact Psychiatric: Reports Affect appropriate Interpretation Radiology Interpretation Radiology Interpretation By: Radiologist Exam Interpreted: CT Scan Xray Comments: enteritis Radiology Interpretation By: Radiologist Radiology Results: No acute changes Exam Interpreted: CXR EKG Interpretation Time of EKG #1: 16:36 Rate: Normal Rhythm: Sinus Interpretation: no stemi Critical Care Note Critical Care Note Total Critical Care Time (mins): 0 Course Course Hematology/Chemistry: 08/30/22 15:08 08/30/22 15:08 Orders, Labs, Meds: Lab Review 08/30/22 08/30/22 08/30/22 15:00 15:00 15:08 WBC 8.02 RBC 3.68 L Hgb 10.9 L Hct 34.2 L MCV 92.9 MCH 29.6 MCHC 31.9 RDW Coeff of Michele 12.6 Plt Count 249 Immature Gran % (Auto) 0.2 Neut % (Auto) 56.6 Lymph % (Auto) 32.8 Pender % (Auto) 5.7 Eos % (Auto) 4.0 Baso % (Auto) 0.7 Neut # (Auto) 4.5 Lymph # (Auto) 2.6 Pender # (Auto) 0.5 Eos # (Auto) 0.3 Baso # (Auto) 0.1 Immature Gran # (Auto) 0.0 Sodium Potassium Chloride Carbon Dioxide Anion Gap BUN Creatinine Estimated GFR (MDRD) BUN/Creatinine Ratio Glucose Lactic Acid Calcium Total Bilirubin AST ALT Alkaline Phosphatase Troponin I Total Protein Albumin Globulin Albumin/Globulin Ratio Influ A Molecular Assay Negative by naat Influ B Molecular Assay Negative by naat RSV Antigen Negative by naat SARS CoV-2 RNA Rapid AMILCAR Negative 08/30/22 08/30/22 15:08 15:08 WBC RBC Hgb Hct MCV MCH MCHC RDW Coeff of Michele Plt Count Immature Gran % (Auto) Neut % (Auto) Lymph % (Auto) Pender % (Auto) Eos % (Auto) Baso % (Auto) Neut # (Auto) Lymph # (Auto) Pender # (Auto) Eos # (Auto) Baso # (Auto) Immature Gran # (Auto) Sodium 141.9 Potassium 3.53 Chloride 107.6 H Carbon Dioxide 27.0 Anion Gap 10.83 BUN 6.6 L Creatinine 1.15 Estimated GFR (MDRD) 49.00 BUN/Creatinine Ratio 5.73 Glucose 102.2 Lactic Acid 2.17 H Calcium 9.09 Total Bilirubin 0.29 AST 27.0 ALT 16.8 Alkaline Phosphatase 140.8 H Troponin I < 0.012 Total Protein 7.26 Albumin 3.94 Globulin 3.32 Albumin/Globulin Ratio 1.18 Influ A Molecular Assay Influ B Molecular Assay RSV Antigen SARS CoV-2 RNA Rapid AMILCAR Orders Category Date Time Status EKG-(ED ONLY) Stat CARDIO 08/30/22 14:59 Completed CBC W/ AUTO DIFF Stat LAB 08/30/22 15:08 Completed CMP [COMPREHENSIVE METABOLIC PANEL] Stat LAB 08/30/22 15:08 Completed DRUG SCREEN, URINE, RAPID Stat LAB 08/30/22 16:31 Ordered LACTIC ACID Stat LAB 08/30/22 15:08 Completed MOLECULAR FLU A & B [FLU A/B MOLECULAR] Stat LAB 08/30/22 15:00 Completed RAPID STREP SCREEN [MOLECULAR GROUP A STREP] Stat LAB 08/30/22 15:00 Completed RSV Stat LAB 08/30/22 15:00 Completed SARS COV-2 RNA RAPID AMILCAR Stat LAB 08/30/22 15:00 Completed TROPONIN I Stat LAB 08/30/22 15:08 Completed URINALYSIS C & S IF INDICATED Stat LAB 08/30/22 16:31 Ordered Acetaminophen [Tylenol] MEDS 08/30/22 14:55 Discontinued 650 mg PO ONCE ONE Ondansetron HCl/Pf [Zofran 4 mg/2 ml] MEDS 08/30/22 14:55 Discontinued 4 mg IVP ONCE ONE Sodium Chloride 0.9% [Sodium Chloride] 1,000 ml MEDS 08/30/22 14:55 Discontinued IV BOLUS CHEST, 1V AP ONLY Stat RADS 08/30/22 14:[address] ABDOMEN/PELVIS WO CONTRAST Stat RADS 08/30/22 14:55 Completed FOOT, RIGHT 3 VIEWS Stat RADS 08/30/22 14:55 Completed Medications Discontinued Medications Generic Name Dose Route Start Last Admin Trade Name Freq PRN Reason Stop Dose Admin Acetaminophen 650 mg 08/30/22 14:55 08/30/22 15:07 Acetaminophen 325 Mg Tablet PO 08/30/22 14:56 650 mg ONCE ONE Administration Sodium Chloride 1,000 mls @ 1,000 mls/hr 08/30/22 14:55 08/30/22 15:08 Sodium Chloride IV 08/30/22 15:54 1,000 mls/hr BOLUS STA Administration Ondansetron HCl 4 mg 08/30/22 14:55 08/30/22 15:08 Ondansetron Hcl/Pf 4 Mg/2 Ml Sdv IVP 08/30/22 14:56 4 mg ONCE ONE Administration Vital Signs: Temp Pulse Resp BP Pulse Ox 08/30/22 14:34 97.6 F 92 16 145/106 H 95 Discharge Plan Discharge Patient Disposition: PLACED OBSERVATION Discharge Problem: Enteritis Prescriptions: No Action hydrocodone-acetaminophen [[place]] 7.5-325 mg Tablet 1 tab PO Q8H PRN (Reason: Pain) gabapentin 600 mg tablet 600 mg PO TID metoprolol succinate 25 mg tablet extended release 24 hr 25 mg PO QAM doxepin 25 mg Capsule 25 mg PO BEDTIME hydroxyzine HCl 25 mg tablet 25 mg PO TID PRN (Reason: anxiey) Qty: 14 0RF naproxen [Naprosyn] 500 mg tablet 500 mg PO BID PRN (Reason: pain) Qty: 30 2RF Did you review [place] [employer]ILATING EXPERT?: Not Applicable ED Provider: GIGI CAMPOS Condition: Stable Physician Progress Note: []obs admit to hospitalist for enteritis
[2022-08-30 15:14] LABS: BASOPHILS # (AUTO) 0.1 K/uL (0-0.2); BASOPHILS % (AUTO) 0.7 % (0.0-3.0); EOSINOPHILS # (AUTO) 0.3 K/ul (0.0-0.7); HEMATOCRIT 34.2 % (37.0-47.0); HEMOGLOBIN 10.9 g/dl (12.0-16.0); IMMATURE GRANULOCYTE % (AUTO) 0.2 % (0.0-5.0); LYMPHOCYTES # (AUTO) 2.6 K/uL (0.60-3.4); LYMPHOCYTES % (AUTO) 32.8 (10.0-50.0); MEAN CORPUSCULAR HEMOGLOBIN 29.6 pg (27.0-31.0); MEAN CORPUSCULAR HGB CONC 31.9 (31.8-35.4); MEAN CORPUSCULAR VOLUME 92.9 fl (81.0-99.0); MONOCYTES # (AUTO) 0.5 K/uL (0.4-2.0); MONOCYTES % (AUTO) 5.7 (0-10); NEUTROPHILS # (AUTO) 4.5 K/ul (2.0-6.9); NEUTROPHILS % (AUTO) 56.6 % (42.2-75.2); PLATELET COUNT 249 10^3/uL (140-440); RDW COEFFICIENT OF VARIATION 12.6 % (11.6-14.8); RED BLOOD COUNT 3.68 10^6/ul (4.20-5.40); WHITE BLOOD COUNT 8.02 K/ul (4.6-10.2)
[2022-08-30 15:26] LABS: ALANINE AMINOTRANSFERASE 16.8 U/L (0-35); ALBUMIN 3.94 g/dL (3.5-5.0); ALKALINE PHOSPHATASE 140.8 U/L (38-126); BILIRUBIN,TOTAL 0.29 mg/dL (0.2-1.3); BLOOD UREA NITROGEN 6.6 mg/dL (7-17); CALCIUM 9.09 mg/dL (8.4-10.2); CHLORIDE 107.6 mmol/L (98-107); CREATININE 1.15 mg/dL (0.60-1.30); GLUCOSE 102.2 mg/dL (74-106); POTASSIUM 3.53 mmol/L (3.5-5.1); SODIUM 141.9 mmol/L (134.5-145); TOTAL PROTEIN 7.26 g/dL (6.3-8.2)
[2022-08-30 15:41] LABS: TROPONIN I < 0.012 ng/ml (0.0000-0.120)
[2022-08-30 15:48] LABS: SARS COV-2 RNA RAPID NAAT NEGATIVE (NEGATIVE)
--- NOTE | 2022-08-30 15:55 | DI ---
EXAM: Single frontal view of the chest HISTORY: Cough. COMPARISON: Chest x-ray 11/17/2021 FINDINGS: Cardiomediastinal silhouette is unchanged. There is no pneumothorax or effusion. There is no consolidation, nodule or mass. The osseous structures are unremarkable. IMPRESSION: No acute cardiopulmonary process
--- NOTE | 2022-08-30 15:57 | DI ---
EXAM: Right foot three view HISTORY: Injury COMPARISON: 06/13/2019. FINDINGS / impression: No discrete fracture line. No dislocation. Calcaneal enthesiophyte. Soft tissue edema . If symptoms persist, repeat radiographs in 7-10 days recommended.
--- NOTE | 2022-08-30 16:01 | CT ---
EXAM: CT abdomen pelvis without contrast HISTORY: Vomiting COMPARISON: CT abdomen pelvis 05/05/2021 TECHNIQUE: Serial axial images of the abdomen pelvis were performed from the lung bases through the inferior pelvis without contrast. These were viewed in multiple planes. FINDINGS: There is dependent atelectasis. Evaluation is limited due to lack of contrast. The liver is unremarkable. Gallbladder is distended. The adrenal glands are unremarkable. There is atrophy of the right kidney. The left kidney is unc hanged in appearance. There is no visualized stone or obstructive uropathy. Spleen is unremarkable. Pancreas is unremarkable. Stomach is minimally distended. The small bowel in the abdomen pelvis demonstrates few scattered fluid-filled loops of bowel. The co hitesh demonstrates diverticulosis without diverticulitis. There is mild calcific atherosclerotic disea se. The appendix is normal. Uterus is normal. Urinary bladder is distended. There is no free air or free fluid. The osseous structures demonstrate degenerative disease. IMPRESSION: 1. Mild fluid-filled loop of small bowel suggestive of enteritis. 2. Diverticulosis without diverticulitis. 3. Right renal atrophy. All CT scans are performed using dose optimization techniques as appropriate to the performed exam an d include at least one of the following: Automated exposure control, adjustment of the mA and/or kV according t o size, and the use of iterative reconstruction technique.
[2022-08-30 16:02] LABS: RSV MOLECULAR NEGATIVE BY NAAT (NEGATIVE)
[2022-08-30 16:03] LABS: MOLECULAR FLU A NEGATIVE BY NAAT (NEGATIVE); MOLECULAR FLU B NEGATIVE BY NAAT (NEGATIVE)
[2022-08-30] MEDS ORDERED: ZOFRAN 4 MG/2 ML IVP PRN (16:41)
[2022-08-30] MEDS ORDERED: ATARAX PO PRN (16:42)
[2022-08-30] MEDS: LEVAQUIN 750 MG/150 ML D5W 750 MG/150 ML BAG IV SCH (17:17)
[2022-08-30 17:20] LABS: BILIRUBIN,URINE Negative (NEGATIVE); CLARITY,URINE Clear (CLEAR); COLOR,URINE Yellow (YELLOW); GLUCOSE, URINE (UA) Negative (NEGATIVE); KETONES,URINE Negative (NEGATIVE); LEUKOCYTE ESTERASE ,URINE Trace (NEGATIVE); NITRITE,URINE Negative (NEGATIVE); PROTEIN,URINE Negative (NEGATIVE); URINE, BLOOD Negative (NEGATIVE); UROBILINOGEN,URINE 0.2 (0.2)
[2022-08-30 17:33] LABS: AMPHETAMINE SCREEN,URINE NEGATIVE (NEGATIVE); BARBITURATE SCREEN,URINE NEGATIVE (NEGATIVE); METHADONE URINE SCREEN NEGATIVE (NEGATIVE); METHAMPHETAMINES SCREEN,URINE NEGATIVE (NEGATIVE); OPIATE SCREEN,URINE POSITIVE (NEGATIVE); OXYCODONE URINE SCREEN NEGATIVE (NEGATIVE); PHENCYCLIDINE SCREEN,URINE NEGATIVE (NEGATIVE); PROPOXYPHENE URINE SCREEN NEGATIVE (NEGATIVE)
[2022-08-30 17:34] LABS: BENZODIAZEPINES SCREEN,URINE NEGATIVE (NEGATIVE); CANNABINOID SCREEN,URINE NEGATIVE (NEGATIVE); COCAIN SCREEN,URINE NEGATIVE (NEGATIVE); TRICYCLIC ANTIDEPRESSANTS URIN NEGATIVE (NEGATIVE)
[2022-08-30] MEDS: SODIUM CHLORIDE 1,000 ML IV SCH (17:44)
[2022-08-30] MEDS: NEURONTIN PO SCH (20:46)
[2022-08-31] MEDS: SODIUM CHLORIDE 1,000 ML IV SCH ×2 (06:08→22:36)
[2022-08-31 06:53] LABS: BASOPHILS # (AUTO) 0.1 K/uL (0-0.2); BASOPHILS % (AUTO) 0.9 % (0.0-3.0); EOSINOPHILS # (AUTO) 0.3 K/ul (0.0-0.7); EOSINOPHILS % (AUTO) 5.1 % (0.0-7.0); HEMATOCRIT 32.1 % (37.0-47.0); HEMOGLOBIN 9.9 g/dl (12.0-16.0); LYMPHOCYTES # (AUTO) 2.1 K/uL (0.60-3.4); LYMPHOCYTES % (AUTO) 36.3 (10.0-50.0); MEAN CORPUSCULAR HGB CONC 30.8 (31.8-35.4); MEAN CORPUSCULAR VOLUME 94.1 fl (81.0-99.0); MONOCYTES # (AUTO) 0.4 K/uL (0.4-2.0); MONOCYTES % (AUTO) 6.3 (0-10); NEUTROPHILS % (AUTO) 51.4 % (42.2-75.2); PLATELET COUNT 227 10^3/uL (140-440); RDW COEFFICIENT OF VARIATION 12.8 % (11.6-14.8); RED BLOOD COUNT 3.41 10^6/ul (4.20-5.40); WHITE BLOOD COUNT 5.73 K/ul (4.6-10.2)
[2022-08-31 07:05] LABS: ALANINE AMINOTRANSFERASE 14.2 U/L (0-35); ALBUMIN 3.57 g/dL (3.5-5.0); ALKALINE PHOSPHATASE 113.5 U/L (38-126); ASPARTATE AMINO TRANSFERASE 24.7 U/L (14-36); BLOOD UREA NITROGEN 5.5 mg/dL (7-17); CALCIUM 9.06 mg/dL (8.4-10.2); CARBON DIOXIDE 30.2 mmol/L (22-30.0); CHLORIDE 110.7 mmol/L (98-107); CREATININE 1.13 mg/dL (0.60-1.30); GLUCOSE 84.5 mg/dL (74-106); POTASSIUM 3.51 mmol/L (3.5-5.1); SODIUM 143.9 mmol/L (134.5-145); TOTAL PROTEIN 6.63 g/dL (6.3-8.2)
[2022-08-31 07:20] LABS: TROPONIN I < 0.012 ng/ml (0.0000-0.120)
--- NOTE | 2022-08-31 09:30 | PCM.PROG ---
Date Seen by Provider: 08/31/22 Time Seen by Provider: 09:28 Subjective: Patient still with abdominal pain. Several loose BMs. Denies emesis. Objective: Vitals: T=98.2 F, P=69, R=20, EG=576/91, SPO2=96 Patient appears to feel poorly. Alert and in NAD. HEENT: [] Neck: [] Lungs: [] Clear. BS equal. CVS: []RRR. Abdomen: [] Soft, nondistended. Mild left sided tenderness without peritoneal signs. Extremities: [] Neurological: [] No deficits. Skin: [] Lab/Tests/Diagnostic Imaging: [] (1) Weakness: Status: Acute Code(s): R53.1 - Weakness SNOMED Code(s): 94141157 (2) Enteritis: Status: Acute Code(s): K52.9 - Noninfective gastroenteritis and colitis, unspecified SNOMED Code(s): 11291342 Plan: Enteritis symptoms persist. Continue IV fluids. Increase activity.
[2022-08-31] MEDS: TOPROL XL PO SCH (09:46)
[2022-08-31] MEDS: NEURONTIN PO SCH ×3 (09:46→21:01)
[2022-08-31] MEDS: LEVAQUIN 750 MG/150 ML D5W 750 MG/150 ML BAG IV SCH (09:48)
[2022-08-31] MEDS: CELEXA PO SCH (12:37)
[2022-08-31] MEDS: KLONOPIN PO SCH ×2 (12:37→21:01)
[2022-08-31] MEDS: NORCO 7.5-325 PO PRN ×2 (12:43→21:04)
[2022-08-31] MEDS ORDERED: OCEAN NASAL SPRAY NAS PRN (15:30)
[2022-08-31] MEDS ORDERED: SINEQUAN PO SCH (21:00)
[2022-09-01] MEDS: TYLENOL PO PRN ×2 (02:14→10:13)
[2022-09-01 05:19] LABS: BASOPHILS # (AUTO) 0.1 K/uL (0-0.2); BASOPHILS % (AUTO) 0.6 % (0.0-3.0); EOSINOPHILS # (AUTO) 0.3 K/ul (0.0-0.7); EOSINOPHILS % (AUTO) 3.6 % (0.0-7.0); HEMATOCRIT 32.6 % (37.0-47.0); HEMOGLOBIN 9.9 g/dl (12.0-16.0); IMMATURE GRANULOCYTE % (AUTO) 0.2 % (0.0-5.0); LYMPHOCYTES # (AUTO) 1.8 K/uL (0.60-3.4); LYMPHOCYTES % (AUTO) 20.2 (10.0-50.0); MEAN CORPUSCULAR HEMOGLOBIN 29.1 pg (27.0-31.0); MEAN CORPUSCULAR HGB CONC 30.4 (31.8-35.4); MEAN CORPUSCULAR VOLUME 95.9 fl (81.0-99.0); MONOCYTES # (AUTO) 0.4 K/uL (0.4-2.0); MONOCYTES % (AUTO) 4.7 (0-10); NEUTROPHILS # (AUTO) 6.2 K/ul (2.0-6.9); NEUTROPHILS % (AUTO) 70.7 % (42.2-75.2); PLATELET COUNT 233 10^3/uL (140-440); RDW COEFFICIENT OF VARIATION 12.9 % (11.6-14.8); WHITE BLOOD COUNT 8.81 K/ul (4.6-10.2)
[2022-09-01 05:29] LABS: ALANINE AMINOTRANSFERASE 12.9 U/L (0-35); ALBUMIN 3.6 g/dL (3.5-5.0); ALKALINE PHOSPHATASE 113.3 U/L (38-126); ASPARTATE AMINO TRANSFERASE 22.2 U/L (14-36); BILIRUBIN,TOTAL 0.29 mg/dL (0.2-1.3); BLOOD UREA NITROGEN 6.6 mg/dL (7-17); CALCIUM 9.08 mg/dL (8.4-10.2); CARBON DIOXIDE 29.3 mmol/L (22-30.0); CHLORIDE 105.7 mmol/L (98-107); CREATININE 1.28 mg/dL (0.60-1.30); GLUCOSE 91.5 mg/dL (74-106); POTASSIUM 3.67 mmol/L (3.5-5.1); SODIUM 140.2 mmol/L (134.5-145); TOTAL PROTEIN 6.76 g/dL (6.3-8.2)
[2022-09-01] MEDS: KLONOPIN PO SCH (10:03)
[2022-09-01] MEDS: NEURONTIN PO SCH ×2 (10:03→16:43)
[2022-09-01] MEDS: TOPROL XL PO SCH (10:04)
[2022-09-01] MEDS: CELEXA PO SCH (10:04)
[2022-09-01] MEDS: LEVAQUIN 750 MG/150 ML D5W 750 MG/150 ML BAG IV SCH (10:04)
[2022-09-01] MEDS: NORCO 7.5-325 PO PRN (13:09)
[2022-09-01 17:33] VITALS: BP 115/74; TEMP 98.3
--- NOTE | 2022-09-01 18:24 | PCM.DC ---
Final Diagnosis: Gastroenteritis - resolving. Date of admit 08/30/22 Date of discharge 09/01/22 Physical Exam Appearance: Well-appearing Ill-appearing: None Pain Distress: None Eyes: HECTOR ENT: Oropharynx normal Neck: Supple Respiratory: Airway patent, Breath sounds clear and Breath sounds equal Cardiovascular: RRR and Pulses normal GI/: Soft and Nontender Musculoskeletal: Normal strength and ROM intact Skin: Warm and Dry Neurological: Sensation intact and Motor intact Psychiatric: Affect appropriate and Mood appropriate (1) Weakness: Status: Acute Code(s): R53.1 - Weakness SNOMED Code(s): 73913178 (2) Enteritis: Status: Acute Code(s): K52.9 - Noninfective gastroenteritis and colitis, unspecified SNOMED Code(s): 06536502 Reason for Hospitalization: Viral enteritis, needing IVF and med overnight. Prognosis/Condition at Discharge: Good, stable. Medications at Discharge: Medications at Discharge (Home Meds & RX) doxepin 25 mg capsule 25 mg PO BEDTIME 10/08/19 hydrocodone 7.5 mg-acetaminophen 325 mg tablet ([place]) 1 tab PO Q8H PRN Pain 08/05/20 gabapentin 600 mg tablet 600 mg PO TID 05/05/21 metoprolol succinate 25 mg tablet,extended release 24 hr 25 mg PO QAM 05/05/21 hydroxyzine HCl 25 mg tablet 25 mg PO TID PRN anxiey #14 tabs 11/17/21 naproxen 500 mg tablet (Naprosyn) 500 mg PO BID PRN pain #30 tabs 02/14/22 citalopram 20 mg tablet 20 mg PO DAILY 08/31/22 clonazepam 1 mg tablet (Klonopin) 1 mg PO BID 08/31/22 ondansetron 4 mg disintegrating tablet 4 mg PO Q6H PRN nausea and vomiting #20 tabs 09/01/22 Lab/Diagnostics: Laboratory Tests 08/30/22 08/30/22 08/30/22 15:00 15:00 15:08 WBC 8.02 RBC 3.68 L Hgb 10.9 L Hct 34.2 L MCV 92.9 MCH 29.6 MCHC 31.9 RDW Coeff of Michele 12.6 Plt Count 249 Immature Gran % (Auto) 0.2 Neut % (Auto) 56.6 Lymph % (Auto) 32.8 [place] % (Auto) 5.7 Eos % (Auto) 4.0 Baso % (Auto) 0.7 Neut # (Auto) 4.5 Lymph # (Auto) 2.6 [place] # (Auto) 0.5 Eos # (Auto) 0.3 Baso # (Auto) 0.1 Immature Gran # (Auto) 0.0 Sodium Potassium Chloride Carbon Dioxide Anion Gap BUN Creatinine Estimated GFR (MDRD) BUN/Creatinine Ratio Glucose Lactic Acid Calcium Total Bilirubin AST ALT Alkaline Phosphatase Troponin I Total Protein Albumin Globulin Albumin/Globulin Ratio Urine Color Urine Clarity Urine pH Ur Specific [place] Urine Protein Urine Glucose (UA) Urine Ketones Urine Blood Urine Nitrite Urine Bilirubin Urine Urobilinogen Ur Leukocyte Esterase Urine Microscopic WBC Ur Squamous Epith Cells Urine Opiates Screen Ur Oxycodone Screen Urine Methadone Screen Ur Propoxyphene Screen Ur Barbiturates Screen U Tricyclic Antidepress Ur Phencyclidine Scrn Ur Amphetamine Screen U Methamphetamines Scrn U Benzodiazepines Scrn Urine Cocaine Screen U Cannabinoids Screen Influ A Molecular Assay Negative by naat Influ B Molecular Assay Negative by naat RSV Antigen Negative by naat SARS CoV-2 RNA Rapid AMILCAR Negative Blood Type 08/30/22 08/30/22 08/30/22 15:08 15:08 16:30 WBC RBC Hgb Hct MCV MCH MCHC RDW Coeff of Michele Plt Count Immature Gran % (Auto) Neut % (Auto) Lymph % (Auto) [place] % (Auto) Eos % (Auto) Baso % (Auto) Neut # (Auto) Lymph # (Auto) [place] # (Auto) Eos # (Auto) Baso # (Auto) Immature Gran # (Auto) Sodium 141.9 Potassium 3.53 Chloride 107.6 H Carbon Dioxide 27.0 Anion Gap 10.83 BUN 6.6 L Creatinine 1.15 Estimated GFR (MDRD) 49.00 BUN/Creatinine Ratio 5.73 Glucose 102.2 Lactic Acid 2.17 H Calcium 9.09 Total Bilirubin 0.29 AST 27.0 ALT 16.8 Alkaline Phosphatase 140.8 H Troponin I < 0.012 Total Protein 7.26 Albumin 3.94 Globulin 3.32 Albumin/Globulin Ratio 1.18 Urine Color Yellow Urine Clarity Clear Urine pH 7.0 Ur Specific [place] 1.015 Urine Protein Negative Urine Glucose (UA) Negative Urine Ketones Negative Urine Blood Negative Urine Nitrite Negative Urine Bilirubin Negative Urine Urobilinogen 0.2 Ur Leukocyte Esterase Trace H Urine Microscopic WBC 2-5 Ur Squamous Epith Cells 2-5 Urine Opiates Screen Ur Oxycodone Screen Urine Methadone Screen Ur Propoxyphene Screen Ur Barbiturates Screen U Tricyclic Antidepress Ur Phencyclidine Scrn Ur Amphetamine Screen U Methamphetamines Scrn U Benzodiazepines Scrn Urine Cocaine Screen U Cannabinoids Screen Influ A Molecular Assay Influ B Molecular Assay RSV Antigen SARS CoV-2 RNA Rapid AMILCAR Blood Type 08/30/22 08/30/22 08/31/22 16:30 23:15 06:47 WBC 5.73 RBC 3.41 L Hgb 9.9 L Hct 32.1 L MCV 94.1 MCH 29.0 MCHC 30.8 L RDW Coeff of Michele 12.8 Plt Count 227 Immature Gran % (Auto) 0.0 Neut % (Auto) 51.4 Lymph % (Auto) 36.3 [place] % (Auto) 6.3 Eos % (Auto) 5.1 Baso % (Auto) 0.9 Neut # (Auto) 3.0 Lymph # (Auto) 2.1 [place] # (Auto) 0.4 Eos # (Auto) 0.3 Baso # (Auto) 0.1 Immature Gran # (Auto) 0.0 Sodium Potassium Chloride Carbon Dioxide Anion Gap BUN Creatinine Estimated GFR (MDRD) BUN/Creatinine Ratio Glucose Lactic Acid Calcium Total Bilirubin AST ALT Alkaline Phosphatase Troponin I < 0.012 Total Protein Albumin Globulin Albumin/Globulin Ratio Urine Color Urine Clarity Urine pH Ur Specific [place] Urine Protein Urine Glucose (UA) Urine Ketones Urine Blood Urine Nitrite Urine Bilirubin Urine Urobilinogen Ur Leukocyte Esterase Urine Microscopic WBC Ur Squamous Epith Cells Urine Opiates Screen Positive H Ur Oxycodone Screen Negative Urine Methadone Screen Negative Ur Propoxyphene Screen Negative Ur Barbiturates Screen Negative U Tricyclic Antidepress Negative Ur Phencyclidine Scrn Negative Ur Amphetamine Screen Negative U Methamphetamines Scrn Negative U Benzodiazepines Scrn Negative Urine Cocaine Screen Negative U Cannabinoids Screen Negative Influ A Molecular Assay Influ B Molecular Assay RSV Antigen SARS CoV-2 RNA Rapid AMILCAR Blood Type 08/31/22 08/31/22 09/01/22 06:47 06:47 04:44 WBC 8.81 RBC 3.40 L Hgb 9.9 L Hct 32.6 L MCV 95.9 MCH 29.1 MCHC 30.4 L RDW Coeff of Michele 12.9 Plt Count 233 Immature Gran % (Auto) 0.2 Neut % (Auto) 70.7 Lymph % (Auto) 20.2 [place] % (Auto) 4.7 Eos % (Auto) 3.6 Baso % (Auto) 0.6 Neut # (Auto) 6.2 Lymph # (Auto) 1.8 [place] # (Auto) 0.4 Eos # (Auto) 0.3 Baso # (Auto) 0.1 Immature Gran # (Auto) 0.0 Sodium 143.9 Potassium 3.51 Chloride 110.7 H Carbon Dioxide 30.2 H Anion Gap 6.51 BUN 5.5 L Creatinine 1.13 Estimated GFR (MDRD) 50.00 BUN/Creatinine Ratio 4.86 Glucose 84.5 Lactic Acid Calcium 9.06 Total Bilirubin 0.30 AST 24.7 ALT 14.2 Alkaline Phosphatase 113.5 D Troponin I < 0.012 Total Protein 6.63 Albumin 3.57 Globulin 3.06 Albumin/Globulin Ratio 1.16 Urine Color Urine Clarity Urine pH Ur Specific [place] Urine Protein Urine Glucose (UA) Urine Ketones Urine Blood Urine Nitrite Urine Bilirubin Urine Urobilinogen Ur Leukocyte Esterase Urine Microscopic WBC Ur Squamous Epith Cells Urine Opiates Screen Ur Oxycodone Screen Urine Methadone Screen Ur Propoxyphene Screen Ur Barbiturates Screen U Tricyclic Antidepress Ur Phencyclidine Scrn Ur Amphetamine Screen U Methamphetamines Scrn U Benzodiazepines Scrn Urine Cocaine Screen U Cannabinoids Screen Influ A Molecular Assay Influ B Molecular Assay RSV Antigen SARS CoV-2 RNA Rapid AMILCAR Blood Type O POSITIVE 09/01/22 04:56 WBC RBC Hgb Hct MCV MCH MCHC RDW Coeff of Michele Plt Count Immature Gran % (Auto) Neut % (Auto) Lymph % (Auto) [place] % (Auto) Eos % (Auto) Baso % (Auto) Neut # (Auto) Lymph # (Auto) [place] # (Auto) Eos # (Auto) Baso # (Auto) Immature Gran # (Auto) Sodium 140.2 Potassium 3.67 Chloride 105.7 Carbon Dioxide 29.3 Anion Gap 8.87 BUN 6.6 L Creatinine 1.28 Estimated GFR (MDRD) 43.00 BUN/Creatinine Ratio 5.15 Glucose 91.5 Lactic Acid Calcium 9.08 Total Bilirubin 0.29 AST 22.2 ALT 12.9 Alkaline Phosphatase 113.3 Troponin I Total Protein 6.76 Albumin 3.60 Globulin 3.16 Albumin/Globulin Ratio 1.13 Urine Color Urine Clarity Urine pH Ur Specific [place] Urine Protein Urine Glucose (UA) Urine Ketones Urine Blood Urine Nitrite Urine Bilirubin Urine Urobilinogen Ur Leukocyte Esterase Urine Microscopic WBC Ur Squamous Epith Cells Urine Opiates Screen Ur Oxycodone Screen Urine Methadone Screen Ur Propoxyphene Screen Ur Barbiturates Screen U Tricyclic Antidepress Ur Phencyclidine Scrn Ur Amphetamine Screen U Methamphetamines Scrn U Benzodiazepines Scrn Urine Cocaine Screen U Cannabinoids Screen Influ A Molecular Assay Influ B Molecular Assay RSV Antigen SARS CoV-2 RNA Rapid AMILCAR Blood Type EXAM: CT abdomen pelvis without contrast HISTORY: Vomiting COMPARISON: CT abdomen pelvis 05/05/2021 TECHNIQUE: Serial axial images of the abdomen pelvis were performed from the lung bases through the inferior pelvis without contrast. These were viewed in multiple planes. FINDINGS: There is dependent atelectasis. Evaluation is limited due to lack of contrast. The liver is unremarkable. Gallbladder is distended. The adrenal glands are unremarkable. There is atrophy of the right kidney. The left kidney is unchanged in appearance. There is no visualized stone or obstructive uropathy. Spleen is unremarkable. Pancreas is unremarkable. Stomach is minimally distended. The small bowel in the abdomen pelvis demonstrates few scattered fluid-filled loops of bowel. The colon demonstrates diverticulosis without diverticulitis. There is mild calcific atherosclerotic disease. The appendix is normal. Uterus is normal. Urinary bladder is distended. There is no free air or free fluid. The osseous structures demonstrate degenerative disease. IMPRESSION: 1. Mild fluid-filled loop of small bowel suggestive of enteritis. 2. Diverticulosis without diverticulitis. 3. Right renal atrophy. Education Provided to Patient and Family: Per nursing staff. Follow-ups: PCP Discharge Disposition: Home Hospital Course: Placed in obs for IV tx and med for an enteritis. Resolved fully. Patient tolerating regular diet as discharge. Rx some nausea med for prn use at home. Plan: Home . Advance diet as able. Zofran prn. This discharge done with a [id number] exam with documentation entailing 30 minutes.
== END 2022-09-01 19:00 | disposition home or self-care (01) ==
LOC: MEDSURG A 14:34 → ED 14:34 → MEDSURG A 17:33
PROVIDERS: ADMIT Emergency Medicine Emergency Medical Services; ATTEND Family Medicine
DX: R53.1 Weakness; Z51.81 Encounter for therapeutic drug level monitoring; Z20.822 Contact with and (suspected) exposure to COVID-19; K21.9 Gastro-esophageal reflux disease without esophagitis; I10 Essential (primary) hypertension; R10.9 Unspecified abdominal pain; Z79.899 Other long term (current) drug therapy; K52.9 Noninfective gastroenteritis and colitis, unspecified

== ENCOUNTER 2025-05-06 11:27 | Observation (INO) ==
--- NOTE | 2025-05-06 11:50 | ED.PDOC ---
General HPI ED Provider: Dr. DANIEL DESAI MD Chief Complaint: Abdominal Pain Stated Complaint: Patient presents to ER from psych visit complaining of diffuse, lower abdominal pain. Reports onset was earlier today and has been gradually worsening. Denies any fever, chills, nausea, vomiting, diarrhea, flank pain. Still eating/drinking/sleeping/voiding/stooling okay. No other complaints at this time. Time Seen by Provider: 05/06/25 11:50 Mode of Arrival: Walk-In Information Source: Patient Exam Limitations: No limitations Primary Care Provider: LYNNETTE AGUAYO APRN, FNP-C Nursing and Triage Documentation Reviewed and Agree: Yes Opioid Naive vs. Tolerant What is Opioid Naive?: *Opioid Naive implies the patient is not already taking opioids or not chronically receiving opioids on a daily basis. *PRN dosing is not "usually" associated with tolerance. *Patients are at higher risk of over-sedation and aspiration. What is Opioid Tolerant?: *Opioid Tolerance implies less than the expected response to an opioid. *Acquired tolerance is defined by the patient taking 60mg of oral morphine daily (or equianalgesic dose of another opioid) for 1 week or more. *Often associated with chronic pain. *May take more than usual dose to achieve desired pain control. Review of Systems Review Of Systems Constitutional: Reports No symptoms All Other Systems: Reviewed and Negative (Except for those listed in the HPI above.) PFSH [facility] Medical History Pneumonia J18.9 - Pneumonia, unspecified organism (ICD-10) Family History Mother Cardiovascular disease Stroke Cancer FATHER Cardiovascular disease SISTER Cancer Social History Smoking and tobacco status: Former smoker Passive smoking exposure: No Alcohol intake: former Substance use type: does not use Mary Beth/pentecostal: OTHER Special mary beth needs: No Agree to transfusion: Yes Adopted: No Caregiver/support person: No Foster care: No Household members: spouse Housing: house Marital status: M Lives independently: No Number of children: 1 Number of grandchildren: 0 Highest education level completed: 10th grade Financial difficulty paying for basics: not very hard service: No CHCF: No Current occupational status: disabled Pets and animals: Yes (dog) Leisure activites: art Do you think of yourself as: straight/heterosexual Current gender identity: female Water heater temperature set < 120 degrees: Yes Working smoke detector in home: Yes Fire extinguisher in home: Yes Carbon monoxide detector in home: Yes Firearms in home: No Surgical History History of hip replacement Z96.649 - Presence of unspecified artificial hip joint (ICD-10) Female Reproductive History Menstrual Hx Hysterectomy: No Hx Tubal Ligation: No Physical Exam Physical Exam Appearance: Reports Ill-appearing and Well-nourished Ill-appearing: Mild Pain Distress: Mild Eyes: Reports HECTOR and EOMI ENT: Reports Ears normal and Nose normal Neck: Supple Respiratory: Reports Airway patent, Breath sounds clear, Breath sounds equal and Respirations nonlabored Cardiovascular: Reports RRR and Pulses normal GI/: Reports Soft, Bowel sounds normal and Tender (Tenderness to palpation of suprapubic area, no guarding or rebound tenderness.) Musculoskeletal: Reports Normal strength and ROM intact Skin: Reports Warm, Dry and Normal color Neurological: Reports Sensation intact, Motor intact, Alert and Oriented Psychiatric: Reports Affect appropriate and Mood appropriate Interpretation EKG Interpretation EKG Interpretation By: ED Physician Time of EKG #1: 14:13 Rate: Anil Rhythm: Sinus Ectopy: None Pierce: NL ST Segment: Normal Interpretation: Sinus anil, HR 57 bpm interpreted by me. Course Course 05/06/25 13:30 05/06/25 13:30 Orders, Labs, Meds: Lab Review 05/06/25 05/06/25 11:57 13:30 WBC 8.44 RBC 3.41 L Hgb 9.7 L Hct 32.1 L MCV 94.1 MCH 28.4 MCHC 30.2 L RDW Coeff of Michele 13.7 Plt Count 254 Immature Gran % (Auto) 0.5 Neut % (Auto) 70.2 Lymph % (Auto) 21.0 [place] % (Auto) 5.6 Eos % (Auto) 1.9 Baso % (Auto) 0.8 Neut # (Auto) 5.9 Lymph # (Auto) 1.8 [place] # (Auto) 0.5 Eos # (Auto) 0.2 Baso # (Auto) 0.1 Immature Gran # (Auto) 0.0 Sodium 137.0 Potassium 5.55 H Chloride 104.3 Carbon Dioxide 23.1 Anion Gap 15.15 BUN 46.7 H Creatinine 2.61 H Estimated GFR (MDRD) 19.00 BUN/Creatinine Ratio 17.89 Glucose 88.7 Calcium 8.73 Magnesium 1.36 L Total Bilirubin 0.45 AST 22.6 ALT 15.4 Alkaline Phosphatase 130.8 H Troponin I < 0.012 Total Protein 6.87 Albumin 3.83 Globulin 3.04 Albumin/Globulin Ratio 1.25 Lipase 106.0 Urine Color Light Urine Clarity Clear Urine pH 5.5 Ur Specific [place] 1.010 Urine Protein Negative Urine Glucose (UA) Negative Urine Ketones Negative Urine Blood Negative Urine Nitrite Negative Urine Bilirubin Negative Urine Urobilinogen 0.2 Ur Leukocyte Esterase Negative Orders Category Date Time Status PLACE PATIENT OBSERVATION .TO MEDSURG (MONITORED BED ADMISSION 05/06/25 14:47 Active ) EKG-(ED ONLY) Stat CARDIO 05/06/25 13:56 Completed ACTIVITY .Up ad Gianna CARE 05/06/25 14:47 Active INTAKE & OUTPUT Q8HR CARE 05/06/25 14:47 Active TELEMETRY MONITORING TELE CARE 05/06/25 14:47 Active VITAL SIGNS Q4HR CARE 05/06/25 14:47 Active REGULAR DIET DIETARY 05/06/25 Dinner Ordered CBC W/ AUTO DIFF DAILY@0600 LAB 05/07/25 06:00 Ordered CBC W/ AUTO DIFF DAILY@0600 LAB 05/08/25 06:00 Ordered CBC W/ AUTO DIFF Stat LAB 05/06/25 13:30 Completed COMPREHENSIVE METABOLIC PANEL DAILY@0600 LAB 05/07/25 06:00 Ordered COMPREHENSIVE METABOLIC PANEL DAILY@0600 LAB 05/08/25 06:00 Ordered COMPREHENSIVE METABOLIC PANEL Stat LAB 05/06/25 13:30 Completed LIPASE Stat LAB 05/06/25 13:30 Completed TROPONIN I Stat LAB 05/06/25 13:30 Completed URINALYSIS C & S IF INDICATED Stat LAB 05/06/25 11:57 Completed Acetaminophen Meds 05/06/25 14:43 Discontinued 1,000 mg in 100 ml IV ONCE Acetaminophen [Tylenol] Meds 05/06/25 14:47 Active 650 mg PO Q4H PRN Ondansetron HCl/Pf [Zofran Sdv] Meds 05/06/25 14:47 Active 4 mg IVP Q6H PRN Sodium Chloride 0.9% [Sodium Chloride] 1,000 ml Meds 05/06/25 15:00 Active IV 100 mls/hr Sodium Chloride 0.9% [Sodium Chloride] 1,000 ml Meds 05/06/25 13:[address] ABDOMEN/PELVIS WO CONTRAST Stat RADS 05/06/25 13:09 Completed Medications Generic Name Dose Route Start Last Admin Trade Name Freq PRN Reason Stop Dose Admin Acetaminophen 650 mg 05/06/25 14:47 Acetaminophen 325 Mg Tablet PO Q4H PRN Mild Pain Hydrocodone Bitart/Acetaminophen 1 tab 05/06/25 17:13 Hydrocodone Bit/Acetaminophen 7.5/325 Mg Tablet PO Q6H PRN MODERATE PAIN Albuterol Sulfate 2 puff 05/06/25 17:13 Albuterol Sulfate 8 Gm Inhaler IH Q6H PRN sob Benzonatate 100 mg 05/06/25 22:20 05/06/25 22:33 Benzonatate 100 Mg Capsule PO 100 mg TID PRN Administration Cough Dicyclomine HCl 10 mg 05/06/25 15:15 Dicyclomine Hcl 10 Mg Capsule PO ACHS2 PRN Abdominal Pain Guaifenesin/Dextromethorphan 5 ml 05/06/25 22:20 05/06/25 22:33 Guaifenesin/Dextromethorphan 200/20 Mg/10 Ml Cup PO 5 ml Q6HR PRN Administration Cough Sodium Chloride 1,000 mls @ 100 mls/hr 05/06/25 15:00 05/06/25 16:46 Sodium Chloride IV 100 mls/hr .Q10H USMAN Administration Metoprolol Succinate 25 mg 05/07/25 09:00 Metoprolol Succinate 25 Mg Tab.Er.24h PO QAM USMAN Ondansetron HCl 4 mg 05/06/25 14:47 Ondansetron Hcl/Pf 4 Mg/2 Ml Sdv IVP Q6H PRN Nausea / Vomiting Pantoprazole Sodium 40 mg 05/07/25 09:00 Pantoprazole Sodium 40 Mg Tablet.Dr PO DAILY USMAN Pregabalin 150 mg 05/06/25 21:00 05/06/25 20:34 Pregabalin 75 Mg Capsule PO 150 mg BID USMAN Administration Trazodone HCl 50 mg 05/06/25 21:00 Trazodone Hcl 50 Mg Tablet PO BEDTIME PRN Insomnia Discontinued Medications Generic Name Dose Route Start Last Admin Trade Name Mosesq PRN Reason Stop Dose Admin Sodium Chloride 1,000 mls @ 1,000 mls/hr 05/06/25 13:51 05/06/25 15:59 Sodium Chloride IV 05/06/25 14:50 Infused BOLUS ONE Infusion Acetaminophen 1,000 mg in 100 mls @ 400 mls/hr 05/06/25 14:43 05/06/25 15:06 Acetaminophen IV 05/06/25 14:57 400 mls/hr ONCE ONE Administration MAGNESIUM SULFATE IN WATER 2 gm in 50 mls @ 25 mls/hr 05/06/25 18:40 05/06/25 19:24 Magnesium Sulf 2 G/50 Ml Bag IV 05/06/25 20:39 25 mls/hr ONCE ONE Administration [address] Report : [id number] Signed Patient: RICHARD BOGGS Acct:[id number] Medical Record: [id number] : 1965 Loc: ED Room/Bed: Age/Sex: 59 / F ADM Status: REG ER Date of Service: 05/06/25 Ordering Physician: DANIEL DESAI MD Procedure(s): CT ABDOMEN/PELVIS WO CONTRAST Report Number(s): [id number] Accession Number(s): [id number] cc: LYNNETTE AGUAYO APRN, KAILEE-C; DANIEL DESAI MD EXAM: CT ABDOMEN AND PELVIS WITHOUT CONTRAST HISTORY: Abdominal and pelvic pain. TECHNIQUE: CT acquisition of the abdomen and pelvis from the lower thorax through the pelvis without IV contrast administration. 2-D coronal and sagittal reformatted images were obtained from the axial source images. Oral Contrast: None. CT Dose Reduction Techniques Performed: Yes. COMPARISON: 08/30/2022. FINDINGS: Lower Thorax: Lung bases are clear. Calcified granuloma in the left lower lobe. Coronary artery calcifications. Liver: No mass. Normal morphology. Biliary: Cholecystectomy. The biliary system is unremarkable. Pancreas: No mass or evidence of pancreatitis. No duct dilation. Spleen: No mass. No splenomegaly. Adrenals: No mass. Kidneys/Ureters: No renal mass. Atrophy of the right kidney without focal abnormality. Left kidney just saw scarring. No calculus or hydronephrosis. GI Tract: Diffuse colonic diverticula without inflammation. The colon shows no other focal abnormality. The appendix is normal. Small bowel shows no focal abnormality or obstruction. Small hiatal hernia. Stomach is otherwise unremarkable. Peritoneal Cavity: No free air, free fluid, fluid collections or areas of inflammation. Retroperitoneum: No fluid collection. Lymph Nodes: No lymphadenopathy. Vasculature: Mild aortic calcifications. No aortic or iliac aneurysm within limitations of noncontrast examination. Pelvis: No mass. Bladder is normal. Pelvic structures visualized are within normal limits. Bones/Soft Tissues: No fracture or lytic lesion. Degenerative changes in the spine. Right hip arthroplasty without sequelae. Stable small umbilical hernia containing fat. IMPRESSION: 1. No acute abnormality of the abdomen and pelvis. 2.. Diverticulosis without radiographic indication of diverticulitis. 3. . Other chronic non emergent findings as above. All CT scans are performed using dose optimization techniques as appropriate to the performed exam and include at least one of the following: Automated exposure control, adjustment of the mA and/or kV according to size, and the use of iterative reconstruction technique. Dictated By: RUBY VARGAS MD Signed By: RUBY VARGAS MD Dictated Date/Time: 05/06/25 1403 Transcribed Date/Time: 05/06/25 1403 Signed Date/Time: 05/06/25 1417 Vital Signs: Temp Pulse Resp BP Pulse Ox 05/06/25 11:37 97.3 F L 62 16 100/63 98 14:45 - Spoke with on-call hospitalist (Katya Drake PA-C) regarding patient's status and current workup and management for HANNA. Agrees to accept patient for further workup and care. Discharge Plan Discharge Patient Disposition: PLACED OBSERVATION Discharge Problem: HANNA (acute kidney injury) Did you review [place] W[employer]PER for ALL controlled substances?: Not Applicable ED Provider: DANIEL DESAI Condition: Good
[2025-05-06 12:21] LABS: GLUCOSE, URINE (UA) Negative (NEGATIVE); LEUKOCYTE ESTERASE ,URINE Negative (NEGATIVE); URINE, BLOOD Negative (NEGATIVE)
[2025-05-06 13:31] LABS: IMMATURE GRANULOCYTE # (AUTO) 0.0 (0.0-1.0); IMMATURE GRANULOCYTE % (AUTO) 0.5 % (0.0-5.0); RDW COEFFICIENT OF VARIATION 13.7 % (11.6-14.8)
[2025-05-06 13:46] LABS: CREATININE 2.61 mg/dL (0.60-1.30)
--- NOTE | 2025-05-06 14:17 | CT ---
EXAM: CT ABDOMEN AND PELVIS WITHOUT CONTRAST HISTORY: Abdominal and pelvic pain. TECHNIQUE: CT acquisition of the abdomen and pelvis from the lower thorax through the pelvis without IV contrast administration. 2-D coronal and sagittal reformatted images were obtained from the axial source images. Oral Contrast: None. CT Dose Reduction Techniques Performed: Yes. COMPARISON: 08/30/2022. FINDINGS: Lower Thorax: Lung bases are clear. Calcified granuloma in the left lower lobe. Coronary artery calcifications. Liver: No mass. Normal morphology. Biliary: Cholecystectomy. The biliary system is unremarkable. Pancreas: No mass or evidence of pancreatitis. No duct dilation. Spleen: No mass. No splenomegaly. Adrenals: No mass. Kidneys/Ureters: No renal mass. Atrophy of the right kidney without focal abnormality. Left kidney just saw scarring. No calculus or hydronephrosis. GI Tract: Diffuse colonic diverticula without inflammation. The colon shows no other focal abnormality. The appendix is normal. Small bowel shows no focal abnormality or obstruction. Small hiatal hernia. Stomach is otherwise unremarkable. Peritoneal Cavity: No free air, free fluid, fluid collections or areas of inflammation. Retroperitoneum: No fluid collection. Lymph Nodes: No lymphadenopathy. Vasculature: Mild aortic calcifications. No aortic or iliac aneurysm within limitations of noncontrast examination. Pelvis: No mass. Bladder is normal. Pelvic structures visualized are within normal limits. Bones/Soft Tissues: No fracture or lytic lesion. Degenerative changes in the spine. Right hip arthroplasty without sequelae. Stable small umbilical hernia containing fat. IMPRESSION: 1. No acute abnormality of the abdomen and pelvis. 2.. Diverticulosis without radiographic indication of diverticulitis. 3. . Other chronic non emergent findings as above. All CT scans are performed using dose optimization techniques as appropriate to the performed exam and include at least one of the following: Automated exposure control, adjustment of the mA and/or kV according to size, and the use of iterative reconstruction technique.
[2025-05-06] MEDS: SODIUM CHLORIDE 1,000 ML IV ONE (14:25)
[2025-05-06] MEDS ORDERED: ZOFRAN SDV IVP PRN (14:47)
[2025-05-06] MEDS: ACETAMINOPHEN 1,000 MG/100 ML BAG IV ONE (15:06)
[2025-05-06] MEDS ORDERED: BENTYL PO PRN (15:15)
--- NOTE | 2025-05-06 15:21 | PCM ---
Date of Service Date Seen by Provider: 05/06/25 Time Seen by Provider: 15:00 Admit Day/Time Admission Date: 05/06/25 Admission Time: 14:47 Reason for Admission Chief Complaint: HANNA, HYPERKALEMIA Hospital Provider Hospital Provider: NIKITA GONZALEZ PA-C, [facility] [place] Primary Care Physician Primary Care Physician: LYNNETTE AGUAYO APRN, BENJI History of Present Illness History of Present Illness: Patient is a 59 year old female who presented to ER with lower abd pain. She had been recently diagnosed with UTI and taken antibiotics. She continues to have the lower abd pain. Denies diarrhea or blood in stool. No fever. States she's been having "normal BMs" but then later says they are hard pellets. In ER she had a negative ct abd/pelvis. Infectious labs negative. However she was noted to have an HANNA and hyperkalemia of 5.5. She takes a daily potassium supplement. Admitted to med surg. Case Discussed With Case Discussed With: Patient's case was discussed with the ER Physicians, Dr. Barney. [facility] Medical History Pneumonia J18.9 - Pneumonia, unspecified organism (ICD-10) Surgical History History of hip replacement Z96.649 - Presence of unspecified artificial hip joint (ICD-10) Family History Mother Cardiovascular disease Stroke Cancer FATHER Cardiovascular disease SISTER Cancer Social History Smoking and tobacco status: Former smoker Passive smoking exposure: No Alcohol intake: former Substance use type: does not use Mary Beth/orthodoxy: OTHER Special mary beth needs: No Agree to transfusion: Yes Adopted: No Caregiver/support person: No Foster care: No Household members: spouse Housing: house Marital status: M Lives independently: No Number of children: 1 Number of grandchildren: 0 Highest education level completed: 10th grade Financial difficulty paying for basics: not very hard service: No correction: No Current occupational status: disabled Pets and animals: Yes (dog) Leisure activites: art Do you think of yourself as: straight/heterosexual Current gender identity: female Water heater temperature set < 120 degrees: Yes Working smoke detector in home: Yes Fire extinguisher in home: Yes Carbon monoxide detector in home: Yes Firearms in home: No Allergies Allergies Allergy/AdvReac Type Severity Reaction Status Date / Time doxycycline Allergy Mild sick to Verified 05/06/25 11:41 stomach wheat Allergy Mild n/v Verified 05/06/25 11:41 clindamycin AdvReac Unknown Verified 05/06/25 11:41 naproxen AdvReac Unknown Verified 05/06/25 11:41 Penicillins AdvReac Unknown Verified 05/06/25 11:41 Sauerkraut AdvReac Unknown Uncoded 05/06/25 11:41 Current Medications Home Medications Acetaminophen (Acetaminophen 325 Mg Tablet) 650 mg PO Q4H PRN PRN Reason: Mild Pain Last Admin: 05/07/25 04:38 Dose: 650 mg Hydrocodone Bitart/Acetaminophen (Hydrocodone Bit/Acetaminophen 7.5/325 Mg Tablet) 1 tab PO Q6H PRN PRN Reason: MODERATE PAIN Albuterol Sulfate (Albuterol Sulfate 8 Gm Inhaler) 2 puff IH Q6H PRN PRN Reason: sob Last Admin: 05/07/25 05:48 Dose: 2 puff Benzonatate (Benzonatate 100 Mg Capsule) 100 mg PO TID PRN PRN Reason: Cough Last Admin: 05/06/25 22:33 Dose: 100 mg Dicyclomine HCl (Dicyclomine Hcl 10 Mg Capsule) 10 mg PO ACHS2 PRN PRN Reason: Abdominal Pain Guaifenesin/Dextromethorphan (Guaifenesin/Dextromethorphan 200/20 Mg/10 Ml Cup) 5 ml PO Q6HR PRN PRN Reason: Cough Last Admin: 05/06/25 22:33 Dose: 5 ml Sodium Chloride (Sodium Chloride) 1,000 mls @ 200 mls/hr IV .Q5H ONE Stop: 05/07/25 13:17 Last Admin: 05/07/25 09:10 Dose: 200 mls/hr Metoprolol Succinate (Metoprolol Succinate 25 Mg Tab.Er.24h) 25 mg PO QAM USMAN Last Admin: 05/07/25 09:10 Dose: 25 mg Ondansetron HCl (Ondansetron Hcl/Pf 4 Mg/2 Ml Sdv) 4 mg IVP Q6H PRN PRN Reason: Nausea / Vomiting Pantoprazole Sodium (Pantoprazole Sodium 40 Mg Tablet.Dr) 40 mg PO QDAC2 [facility] Last Admin: 05/07/25 09:10 Dose: 40 mg Pregabalin (Pregabalin 75 Mg Capsule) 150 mg PO BID [facility] Last Admin: 05/07/25 09:10 Dose: 150 mg Trazodone HCl (Trazodone Hcl 50 Mg Tablet) 50 mg PO BEDTIME PRN PRN Reason: Insomnia Last Admin: 05/07/25 03:39 Dose: 50 mg epinephrine 0.3 mg/0.3 mL injection, auto-injector 0.3 mg (0.3 mL) IM Q5-15M PRN anaphylaxis #2 ea 12/25/24 [Rx Confirmed 05/06/25] hydrochlorothiazide 25 mg tablet 25 mg PO QAM #30 tabs 02/10/25 [Rx Confirmed 05/06/25] hydroxyzine HCl 25 mg tablet 25 mg PO TID PRN allergy symptoms #90 tabs 02/19/25 [Rx Confirmed 05/06/25] pantoprazole 40 mg tablet,delayed release 40 mg PO QDAY #30 tabs 03/02/25 [Rx Confirmed 05/06/25] trazodone 50 mg tablet 50 mg PO QHS PRN insomnia #90 tabs 03/19/25 [Rx Confirmed 05/06/25] furosemide 20 mg tablet (Lasix) 20 mg PO QAM PRN edema #14 tabs 03/31/25 [Rx Confirmed 05/06/25] potassium chloride 10 mEq capsule,extended release 10 meq PO QDAY #14 caps 03/31/25 [Rx Confirmed 05/06/25] lisinopril 20 mg tablet 20 mg PO QDAY #30 tabs 04/13/25 [Rx Confirmed 05/06/25] metoprolol succinate 25 mg tablet,extended release 24 hr 25 mg PO QAM #30 tabs 04/13/25 [Rx Confirmed 05/06/25] albuterol sulfate 90 mcg/actuation aerosol inhaler 2 puff inhalation Q6H PRN shortness of breath or wheezing #8.5 grams 04/15/25 [Rx Confirmed 05/06/25] hydroxyzine HCl 50 mg tablet 50 mg PO TID PRN anxiety #30 tabs 04/22/25 [Rx Confirmed 05/06/25] ondansetron 4 mg disintegrating tablet 4 mg PO Q8H PRN nausea and vomiting #10 tabs 04/22/25 [Rx Confirmed 05/06/25] lidocaine 5 % topical patch 1 patch topical QDAY #30 ea 04/27/25 [Rx Confirmed 05/06/25] hydrocodone 7.5 mg-acetaminophen 325 mg tablet 1 tab PO Q6H PRN pain #120 tabs 05/05/25 [Rx Confirmed 05/06/25] pregabalin 150 mg capsule 150 mg PO BID #60 caps 05/05/25 [Rx Confirmed 05/06/25] sertraline 50 mg tablet (Zoloft) See Rx Instructions .Route .COMPLEX #30 tabs 05/06/25 [Rx Confirmed 05/06/25] Opioid Naive vs. Tolerant Does Patient Take Opioids?: Yes Is Patient Opioid Naive?: No What is Opioid Naive?: *Opioid Naive implies the patient is not already taking opioids or not chronically receiving opioids on a daily basis. *PRN dosing is not "usually" associated with tolerance. *Patients are at higher risk of over-sedation and aspiration. Is Patient Opioid Tolerant?: No What is Opioid Tolerant?: *Opioid Tolerance implies less than the expected response to an opioid. *Acquired tolerance is defined by the patient taking 60mg of oral morphine daily (or equianalgesic dose of another opioid) for 1 week or more. *Often associated with chronic pain. *May take more than usual dose to achieve desired pain control. Review of Systems Constitutional: Denies Fever or Fatigue Head: Reports Normocephalic and Atraumatic Cardiovascular: Denies Chest pain, Chest Pressure or Edema Respiratory: Denies Cough or Shortness of air Gastrointestinal: Reports Constipation and Abdominal pain; Denies Nausea, Vomiting, Diarrhea or Melena Genitourinary: Denies Dysuria or Frequency Neurological: Denies Headache, Dizziness or Syncope Physical examination Most Recent Vital Signs: Most Recent Vital Signs Temperature 97.3 F L 05/06/25 11:37 Temperature Source Infrared 05/06/25 11:37 Pulse Rate 62 05/06/25 11:37 Respiratory Rate 16 05/06/25 11:37 Blood Pressure 100/63 05/06/25 11:37 O2 Sat by Pulse Oximetry 98 05/06/25 11:37 Height 5 ft 1 in 05/06/25 11:37 Weight 80.739 kg 05/06/25 11:37 Telemetry Heart Rate 72 12/23/24 14:05 Telemetry SPO2 90 L 12/23/24 14:05 Appearance: Positive No Apparent Distress and Alert and Oriented x3 Skin: Positive [place], Warm, Good Turgor and Good Color HEENT: Positive Normocephalic and Atraumatic Neck: Positive Supple and Midline Trachea Chest/Lungs: Positive Clear to Auscultation Bilaterally; Negative Rales, Rhonci or Wheezes Heart: Positive RRR GI/: Positive Soft, Bowel Sounds Normal, No Distention and Tender (rlq and llq ) Extremities: Negative Edema Neurological: Positive Cranial Nerves Intact, Alert, Oriented and Muscle Strength 5/5 in Upper and Lower Extremities Bilaterally Psychiatric: Positive Oriented x4, Appropriate Mood and Appropriate Affect Labs This Visit Labs This Visit: Labs This Visit 05/06/25 05/06/25 11:57 13:30 WBC 8.44 RBC 3.41 L Hgb 9.7 L Hct 32.1 L MCV 94.1 MCH 28.4 MCHC 30.2 L RDW Coeff of Michele 13.7 Plt Count 254 Immature Gran % (Auto) 0.5 Neut % (Auto) 70.2 Lymph % (Auto) 21.0 [place] % (Auto) 5.6 Eos % (Auto) 1.9 Baso % (Auto) 0.8 Neut # (Auto) 5.9 Lymph # (Auto) 1.8 [place] # (Auto) 0.5 Eos # (Auto) 0.2 Baso # (Auto) 0.1 Immature Gran # (Auto) 0.0 Sodium 137.0 Potassium 5.55 H Chloride 104.3 Carbon Dioxide 23.1 Anion Gap 15.15 BUN 46.7 H Creatinine 2.61 H Estimated GFR (MDRD) 19.00 BUN/Creatinine Ratio 17.89 Glucose 88.7 Calcium 8.73 Total Bilirubin 0.45 AST 22.6 ALT 15.4 Alkaline Phosphatase 130.8 H Troponin I < 0.012 Total Protein 6.87 Albumin 3.83 Globulin 3.04 Albumin/Globulin Ratio 1.25 Lipase 106.0 Urine Color Light Urine Clarity Clear Urine pH 5.5 Ur Specific [place] 1.010 Urine Protein Negative Urine Glucose (UA) Negative Urine Ketones Negative Urine Blood Negative Urine Nitrite Negative Urine Bilirubin Negative Urine Urobilinogen 0.2 Ur Leukocyte Esterase Negative Imaging Imaging: EXAM: CT ABDOMEN AND PELVIS WITHOUT CONTRAST HISTORY: Abdominal and pelvic pain. TECHNIQUE: CT acquisition of the abdomen and pelvis from the lower thorax through the pelvis without IV contrast administration. 2-D coronal and sagittal reformatted images were obtained from the axial source images. Oral Contrast: None. CT Dose Reduction Techniques Performed: Yes. COMPARISON: 08/30/2022. FINDINGS: Lower Thorax: Lung bases are clear. Calcified granuloma in the left lower lobe. Coronary artery calcifications. Liver: No mass. Normal morphology. Biliary: Cholecystectomy. The biliary system is unremarkable. Pancreas: No mass or evidence of pancreatitis. No duct dilation. Spleen: No mass. No splenomegaly. Adrenals: No mass. Kidneys/Ureters: No renal mass. Atrophy of the right kidney without focal abnormality. Left kidney just saw scarring. No calculus or hydronephrosis. GI Tract: Diffuse colonic diverticula without inflammation. The colon shows no other focal abnormality. The appendix is normal. Small bowel shows no focal abnormality or obstruction. Small hiatal hernia. Stomach is otherwise unremarkable. Peritoneal Cavity: No free air, free fluid, fluid collections or areas of inflammation. Retroperitoneum: No fluid collection. Lymph Nodes: No lymphadenopathy. Vasculature: Mild aortic calcifications. No aortic or iliac aneurysm within limitations of noncontrast examination. Pelvis: No mass. Bladder is normal. Pelvic structures visualized are within normal limits. Bones/Soft Tissues: No fracture or lytic lesion. Degenerative changes in the spine. Right hip arthroplasty without sequelae. Stable small umbilical hernia containing fat. IMPRESSION: 1. No acute abnormality of the abdomen and pelvis. 2.. Diverticulosis without radiographic indication of diverticulitis. 3. . Other chronic non emergent findings as above. Review Statement Review Statement: I have independently reviewed and interpreted the labs/EKGs/imaging that were ordered by the ER provider. I have reviewed all outside records that are available currently in our EMR including imaging/notes/labs from previous visits. Plan Plan: 1. HANNA, stage I - LR at 100 ml/hr. 2. Hyperkalemia - Likely due to HANNA and supplement. Hold potassium supplement. Tele. 3. Abdominal pain - CT A/p negative. Clinically sounds like some constipation. Bowel regimen. Bentyl prn. 4. Hypertension - hold hctz due to HANNA and lisinopril due to hyperkalemia 5. GERD - Cont home meds 6. Depression - Cont home meds, saw psychiatrist today DVT Prophylaxis: Ambulation Time Spent: Greater than 80 minutes spent with patient, 50% of the time spent with this patient was devoted to counseling and coordination of care. Advanced Care Plannin minutes spent discussing advance care planning. Admit to: Obs Discussed Plan of Care with Dr. Lyle Licona. Medications Medication Orders: Medications Ordered Category Date Time Status Acetaminophen [Tylenol] Meds 05/06/25 14:47 Active 650 mg PO Q4H PRN Dicyclomine HCl [Bentyl] Meds 05/06/25 15:15 Ordered 10 mg PO ACHS2 PRN Ondansetron HCl/Pf [Zofran Sdv] Meds 05/06/25 14:47 Active 4 mg IVP Q6H PRN Sodium Chloride 0.9% [Sodium Chloride] 1,000 ml Meds 05/06/25 15:00 Active IV 100 mls/hr
[2025-05-06] MEDS: SODIUM CHLORIDE 1,000 ML IV SCH (16:46)
[2025-05-06 16:48] VITALS: BMI 34.5
[2025-05-06] MEDS ORDERED: NORCO 7.5-325 PO PRN (17:13)
[2025-05-06] MEDS: MAGNESIUM SULF 2 G/50 ML BAG 2 GM/50 ML PIGGYBACK IV ONE (19:24)
[2025-05-06] MEDS: LYRICA PO SCH (20:34)
[2025-05-06] MEDS: TESSALON PERLES PO PRN (22:33)
[2025-05-06] MEDS: ROBITUSSIN DM SYRUP PO PRN (22:33)
[2025-05-07] MEDS: DESYREL PO PRN (03:39)
[2025-05-07] MEDS: TYLENOL PO PRN (04:38)
[2025-05-07 05:29] LABS: IMMATURE GRANULOCYTE # (AUTO) 0.0 (0.0-1.0); IMMATURE GRANULOCYTE % (AUTO) 0.3 % (0.0-5.0); RDW COEFFICIENT OF VARIATION 13.8 % (11.6-14.8)
[2025-05-07 05:42] LABS: CREATININE 2.16 mg/dL (0.60-1.30)
[2025-05-07] MEDS: VENTOLIN HFA IH PRN (05:48)
[2025-05-07] MEDS: TOPROL XL PO SCH (09:10)
[2025-05-07] MEDS: PROTONIX PO SCH (09:10)
[2025-05-07] MEDS: SODIUM CHLORIDE 1,000 ML IV ONE (09:10)
[2025-05-07] MEDS: DULCOLAX PO ONE (09:32)
[2025-05-07 10:24] VITALS: BP 107/65; PULSE 77; RESP 16; TEMP 98.2
[2025-05-07 12:32] LABS: CREATININE 1.85 mg/dL (0.60-1.30)
--- NOTE | 2025-05-07 12:50 | DCSUM ---
Admission Date Admission Date: 05/06/25 Discharge Date Discharge Date: 05/07/25 Admission Diagnosis Admission Diagnosis: 1. HANNA, stage I 2. Hyperkalemia 3. Abdominal pain Discharge Diagnosis Discharge Diagnosis: 1. HANNA, stage I - resolved 2. Hyperkalemia - resolved 3. Abdominal pain - improved 4. Hypertension 5. GERD 6. Depression Hospital Provider Hospital Provider: [facility] Primary [facility] Physician Primary Care Physician: LYNNETTE AGUAYO APRN, [facility] Summary of History and Physical Summary of History and Physical: Patient is a 59 year old female who presented to ER with lower abd pain. She had been recently diagnosed with UTI and taken antibiotics. She continues to have the lower abd pain. Denies diarrhea or blood in stool. No fever. States she's been having "normal BMs" but then later says they are hard pellets. In ER she had a negative ct abd/pelvis. Infectious labs negative. However she was noted to have an HANNA and hyperkalemia of 5.5. She takes a daily potassium supplement. Admitted to med surg. Hospital Course Subjective: Patient was treated fluids. HANNA resolved, Cr at baseline. K+ improved by fluids and holding her supplement. She states she still takes this daily. Discontinue it going forward. Will have her f/u with pcp for recheck. She had a large BM this morning and states her lower abd pain is improved. Encouraged good bowel regimen. Appearance: Pleasant, No Apparent Distress and Alert HEENT: MMM CVS: Other (rrr) Abdomen: Soft, No Distention and Other (+MILD LLQ AND RLQ TENDERNESS, IMPROVED FOLLOWING BM ) Respiratory: No Accessory Muscle Use Extremities: No Edema Vital Signs: Most Recent Vital Signs Temperature 98.2 F 05/07/25 10:00 Temperature Source Temporal Artery Scan 05/07/25 10:00 Temperature Source Infrared 05/06/25 11:37 Pulse Rate 77 05/07/25 10:00 Respiratory Rate 16 05/07/25 10:00 Blood Pressure 107/65 05/07/25 10:00 Blood Pressure Mean 79 05/07/25 10:00 Blood Pressure Right Arm 118/80 05/06/25 16:20 Blood Pressure Location Left Arm 05/07/25 10:00 Blood Pressure Position Supine 05/07/25 05:20 O2 Sat by Pulse Oximetry 95 05/07/25 10:00 Oxygen Delivery Method Room Air 05/07/25 11:00 Height 5 ft 1 in 05/07/25 09:27 Weight 83 kg 05/07/25 09:27 Telemetry Type Remote Telemetry 05/07/25 01:00 Telemetry Monitoring Continues 05/07/25 01:00 Telemetry Heart Rate 72 05/07/25 01:00 Telemetry SPO2 90 L 12/23/24 14:05 EKG MI Interval 0.19 05/07/25 01:00 EKG QRS Interval 0.08 05/07/25 01:00 Telemetry Strip Reading SR 05/07/25 01:00 Imaging: EXAM: CT ABDOMEN AND PELVIS WITHOUT CONTRAST HISTORY: Abdominal and pelvic pain. TECHNIQUE: CT acquisition of the abdomen and pelvis from the lower thorax through the pelvis without IV contrast administration. 2-D coronal and sagittal reformatted images were obtained from the axial source images. Oral Contrast: None. CT Dose Reduction Techniques Performed: Yes. COMPARISON: 08/30/2022. FINDINGS: Lower Thorax: Lung bases are clear. Calcified granuloma in the left lower lobe. Coronary artery calcifications. Liver: No mass. Normal morphology. Biliary: Cholecystectomy. The biliary system is unremarkable. Pancreas: No mass or evidence of pancreatitis. No duct dilation. Spleen: No mass. No splenomegaly. Adrenals: No mass. Kidneys/Ureters: No renal mass. Atrophy of the right kidney without focal abnormality. Left kidney just saw scarring. No calculus or hydronephrosis. GI Tract: Diffuse colonic diverticula without inflammation. The colon shows no other focal abnormality. The appendix is normal. Small bowel shows no focal abnormality or obstruction. Small hiatal hernia. Stomach is otherwise unremarkable. Peritoneal Cavity: No free air, free fluid, fluid collections or areas of inflammation. Retroperitoneum: No fluid collection. Lymph Nodes: No lymphadenopathy. Vasculature: Mild aortic calcifications. No aortic or iliac aneurysm within limitations of noncontrast examination. Pelvis: No mass. Bladder is normal. Pelvic structures visualized are within normal limits. Bones/Soft Tissues: No fracture or lytic lesion. Degenerative changes in the s pine. Right hip arthroplasty without sequelae. Stable small umbilical hernia containing fat. IMPRESSION: 1. No acute abnormality of the abdomen and pelvis. 2.. Diverticulosis without radiographic indication of diverticulitis. 3. . Other chronic non emergent findings as above. Lab Results Last 24 Hours: 05/07/25 05/07/25 05/06/25 12:17 05:17 13:30 WBC 10.28 H 8.44 RBC 3.17 L 3.41 L Hgb 9.1 L 9.7 L Hct 30.5 L 32.1 L MCV 96.2 94.1 MCH 28.7 28.4 MCHC 29.8 L 30.2 L RDW Coeff of Michele 13.8 13.7 Plt Count 234 254 Immature Gran % (Auto) 0.3 0.5 Neut % (Auto) 82.9 H 70.2 Lymph % (Auto) 11.9 21.0 [place] % (Auto) 3.0 5.6 Eos % (Auto) 1.4 1.9 Baso % (Auto) 0.5 0.8 Neut # (Auto) 8.5 H 5.9 Lymph # (Auto) 1.2 1.8 [place] # (Auto) 0.3 L 0.5 Eos # (Auto) 0.1 0.2 Baso # (Auto) 0.1 0.1 Immature Gran # (Auto) 0.0 0.0 Sodium 141.7 143.0 137.0 Potassium 5.16 H 5.12 H 5.55 H Chloride 111.3 H 113.1 H 104.3 Carbon Dioxide 20.3 L 18.7 L 23.1 Anion Gap 15.26 16.32 15.15 BUN 38.1 H 41.7 H 46.7 H Creatinine 1.85 H 2.16 H 2.61 H Estimated GFR (MDRD) 28.00 23.00 19.00 BUN/Creatinine Ratio 20.59 19.30 17.89 Glucose 86.4 101.8 88.7 Calcium 8.49 8.11 L 8.73 Magnesium 1.89 1.36 L Total Bilirubin 0.37 0.45 AST 22.1 22.6 ALT 14.6 15.4 Alkaline Phosphatase 139.9 H 130.8 H Troponin I < 0.012 Total Protein 5.98 L 6.87 Albumin 3.27 L 3.83 Globulin 2.71 3.04 Albumin/Globulin Ratio 1.20 1.25 Lipase 106.0 Discharge Instructions Discharge Planning: Discharge Planning > [address] Lyle Licona. Discharge Medications: Medications at Discharge (Home Meds & RX) epinephrine 0.3 mg/0.3 mL injection, auto-injector 0.3 mg (0.3 mL) IM Q5-15M PRN anaphylaxis #2 ea 12/25/24 hydrochlorothiazide 25 mg tablet 25 mg PO QAM #30 tabs 02/10/25 hydroxyzine HCl 25 mg tablet 25 mg PO TID PRN allergy symptoms #90 tabs 02/19/25 pantoprazole 40 mg tablet,delayed release 40 mg PO QDAY #30 tabs 03/02/25 trazodone 50 mg tablet 50 mg PO QHS PRN insomnia #90 tabs 03/19/25 furosemide 20 mg tablet (Lasix) 20 mg PO QAM PRN edema #14 tabs 03/31/25 lisinopril 20 mg tablet 20 mg PO QDAY #30 tabs 04/13/25 metoprolol succinate 25 mg tablet,extended release 24 hr 25 mg PO QAM #30 tabs 04/13/25 albuterol sulfate 90 mcg/actuation aerosol inhaler 2 puff inhalation Q6H PRN shortness of breath or wheezing #8.5 grams 04/15/25 hydroxyzine HCl 50 mg tablet 50 mg PO TID PRN anxiety #30 tabs 04/22/25 ondansetron 4 mg disintegrating tablet 4 mg PO Q8H PRN nausea and vomiting #10 tabs 04/22/25 lidocaine 5 % topical patch 1 patch topical QDAY #30 ea 04/27/25 hydrocodone 7.5 mg-acetaminophen 325 mg tablet 1 tab PO Q6H PRN pain #120 tabs 05/05/25 pregabalin 150 mg capsule 150 mg PO BID #60 caps 05/05/25 sertraline 50 mg tablet (Zoloft) See Rx Instructions .Route .COMPLEX #30 tabs 05/06/25 Discharge Plan Discharge Discharge Orders: Discharge Patient (ONCE); Ordered 05/07/25 Ordered By: NIKITA GONZALEZ Activity Restrictions/Additional Instructions: DISCHARGE TO HOME DX: HANNA, HYPERKALEMIA STOP POTASSIUM SUPPLEMENT MAY RESTART BLOOD PRESSURE PILLS TOMORROW PUSH FLUIDS FOLLOW UP WITH PCP FOR RECHECK CONSIDER OVER THE COUNTER MAGNESIUM SUPPLEMENT Patient Disposition: HOME SELF-CARE Prescriptions: Continued hydrochlorothiazide 25 mg tablet 25 mg PO QAM Qty: 30 2RF hydroxyzine HCl 25 mg tablet 25 mg PO TID PRN (Reason: allergy symptoms) Qty: 90 1RF lisinopril 20 mg tablet 20 mg PO QDAY Qty: 30 2RF metoprolol succinate 25 mg tablet extended release 24 hr 25 mg PO QAM Qty: 30 1RF pregabalin 150 mg capsule 150 mg PO BID Qty: 60 0RF hydrocodone-acetaminophen 7.5-325 mg tablet 1 tab PO Q6H PRN (Reason: pain) Qty: 120 0RF hydroxyzine HCl 50 mg tablet 50 mg PO TID PRN (Reason: anxiety) Qty: 30 0RF ondansetron 4 mg tablet,disintegrating 4 mg PO Q8H PRN (Reason: nausea and vomiting) Qty: 10 0RF trazodone 50 mg tablet 50 mg PO QHS PRN (Reason: insomnia) Qty: 90 0RF pantoprazole 40 mg tablet,delayed release (DR/EC) 40 mg PO QDAY Qty: 30 1RF furosemide [Lasix] 20 mg tablet 20 mg PO QAM PRN (Reason: edema) Qty: 14 0RF Rx Instructions: do not take more than 3 times in a week lidocaine 5 % adhesive patch,medicated 1 patch topical QDAY Qty: 30 0RF Patient Comments: For back pain Rx Instructions: leave on most painful area for up to 12 hrs epinephrine 0.3 mg/0.3 mL auto-injector 0.3 mg IM Q5-15M PRN (Reason: anaphylaxis) Qty: 2 0RF Rx Instructions: do not exceed 3 doses per episode sertraline [Zoloft] 50 mg tablet See Rx Instructions .ROUTE .COMPLEX Qty: 30 0RF Rx Instructions: 25mg PO QD x 7 days, then 50mg PO QD Discontinued potassium chloride 10 mEq capsule, extended release 10 meq PO QDAY Qty: 14 0RF Rx Instructions: take on days with lasix No Action albuterol sulfate 90 mcg/actuation HFA aerosol inhaler 2 puff INHALATION Q6H PRN (Reason: shortness of breath or wheezing) Qty: 8.5 2RF Did you review [place] [employer] PRACTITIONER for ALL controlled substances?: Not Applicable Discussed opioids are addictive and Narcan is available by prescription or from pharmacy.: No Condition: Good Referrals: LYNNETTE AGUAYO APRN,[facility] [Primary Care Provider, NURSE PRACTITIONER] - 05/13/25 9:00 am
== END 2025-05-07 14:15 | disposition home or self-care (01) ==
LOC: MEDSURG B 11:27 → ED 11:27 → MEDSURG B 16:47
PROVIDERS: ADMIT Hospitalist; ATTEND Physician Assistant